=== PATIENT | female | born 1940 | race Caucasian/White ===

== ENCOUNTER 2016-12-18 14:58 | Inpatient (IN) | payer BC, MEDICARE ==
[2016-12-18 14:58] VITALS: BMI 25.8
[2016-12-18] MEDS ORDERED: Sodium Chloride 0.9% 1,000 ML IV SCH (15:30)
--- NOTE | 2016-12-18 15:34 | ED PDOC ---
Arrival/HPI - General Chief Complaint: Syncope Time Seen by Provider: 12/18/16 15:19 Historian: Patient - History of Present Illness Narrative History of Present Illness (Text): 12/18/16 15:22 76 y/o female, pmh including htn/hyperlipidemia/CAD with multiple stents/ITP on brillinta, penicillin allergy, c/o dizziness and fall with head injury x 8 hours. Pt. was in the shower early this morning around 7am, bend down to wash her thigh which she feels dizziness as about to pass out which she fall outside of the tube, landed on the floor which she is not sure if she has LOC or not. Apparently, the patient started to have lt. hand numbness and tingling with dizziness about 5 days ago which she feels as if she will pass out which she refused to come to the ER. Pt. is here at the ER with elevated BP with systolic over 200s with no headache or dizziness, no chest pain or shortness of breath, no palpitation, no other medical or psychological complaints. Past Medical History - Provider Review Nursing Documentation Reviewed: Yes - Infectious Disease Hx of Infectious Diseases: None - Tetanus Immunization Tetanus Immunization: Unknown - Reproductive Menopause: Yes - Past Medical History Past Medical History: No Previous - Cardiac Hx Hypertension: Yes Other/Comment: 8 cardiac stents. Breast CA 2008 - Neurological Hx Paralysis: No - HEENT Other/Comment: no thin liquids - Renal Hx Renal Disorder: No - Endocrine/Metabolic Hx Endocrine Disorders: No - Hematological/Oncological Hx Blood Disorders: No Hx Blood Transfusions: No Hx Blood Transfusion Reaction: No - Integumentary Hx Dermatological Disorder: No - Musculoskeletal/Rheumatological Hx Musculoskeletal Disorders: No - Gastrointestinal Hx Gastrointestinal Disorders: No - Genitourinary/Gynecological Hx Genitourinary Disorders: No - Psychiatric Hx Psychophysiologic Disorder: No Hx Emotional Abuse: No Hx Physical Abuse: No Hx Substance Use: No - Past Surgical History Past Surgical History: Non-Contributing - Surgical History Hx Cardiac Catheterization: Yes (8 stents) Hx Coronary Stent: Yes Hx Mastectomy: Yes (double) Other/Comment: cardiac stent - Anesthesia Hx Anesthesia: No Hx Anesthesia Reactions: Yes (NAUSEA/VOMITING (AFTER [facility])) Hx Malignant Hyperthermia: No - Suicidal Assessment Feels Threatened In Home Enviroment: No Family/Social History - Physician Review Nursing Documentation Reviewed: Yes Family/Social History: Unknown Family HX Smoking Status: Never Smoked Hx Alcohol Use: No Hx Substance Use: No Hx Substance Use Treatment: No Allergies/Home Meds Allergies/Adverse Reactions: Allergies Penicillins Allergy (Verified 10/05/15 12:17) RASH Home Medications: Home Meds Medication Instructions Recorded Confirmed Aspirin [Ecotrin] 81 mg PO DAILY 12/18/16 12/22/16 Letrozole 2.5 mg PO DAILY 12/18/16 12/22/16 Metoprolol Succinate 50 mg PO DAILY 12/18/16 12/18/16 Rosuvastatin Calcium [Crestor] 20 mg PO HS 12/18/16 12/22/16 Ticagrelor [Brilinta] 60 mg PO BID 12/18/16 12/22/16 Review of Systems - Review of Systems Constitutional: absent: Fatigue, Fevers Eyes: absent: Vision Changes ENT: absent: Hearing Changes Respiratory: absent: SOB, Cough Gastrointestinal: absent: Abdominal Pain, Nausea, Vomiting Musculoskeletal: Arthralgias Skin: Rash. absent: Pruritis Neurological: Dizziness, Other (numbness and tingling). absent: Headache, Speech Changes, Facial Droop Physical Exam Vital Signs Reviewed: Yes Vital Signs Temp Pulse Resp BP Pulse Ox 12/18/16 20:00 52 L 16 166/74 H 100 12/18/16 18:30 56 L 16 148/60 99 12/18/16 17:54 48 L 16 197/72 H 100 12/18/16 16:05 53 L 16 170/75 H 100 12/18/16 15:51 60 16 165/88 H 100 12/18/16 15:10 98.6 F 65 20 213/71 H 99 Temperature: Afebrile Blood Pressure: Hypertensive Pulse: Regular Respiratory Rate: Normal Appearance: Positive for: Well-Appearing, Non-Toxic, Comfortable Pain Distress: None Mental Status: Positive for: Alert and Oriented X 3 - Systems Exam Head: Present: Atraumatic, Normocephalic. No: Tenderness, Contusion, Swelling, Ecchymosis, Abrasion, Laceration, Other Pupils: Present: PERRL Extroacular Muscles: Present: EOMI Conjunctiva: Present: Normal Ears: Present: NORMAL TM, Normal Canal. No: Erythema Mouth: Present: Moist Mucous Membranes Neck: Present: Normal Range of Motion, Paraspinal Tenderness (Cervical: +ttp on the lt. paraspinal muscle region, no step off noted, FROM without limitation, sensation intact, motor 5/5, ), Trachea Midline. No: Meningeal Signs, MIDLINE TENDERNESS, Lymphadenopathy Respiratory/Chest: Present: Clear to Auscultation, Good Air Exchange. No: Respiratory Distress, Accessory Muscle Use, Wheezes, Decreased Breath Sounds, Rales, Retracting, Rhonchi Cardiovascular: Present: Regular Rate and Rhythm, Normal S1, S2. No: Murmurs Abdomen: Present: Normal Bowel Sounds. No: Tenderness, Distention, Peritoneal Signs, Rebound, Guarding Back: Present: Normal Inspection. No: CVA Tenderness, Midline Tenderness, Paraspinal Tenderness, Decubitus Ulcer Upper Extremity: Present: Normal Inspection, Other (RUE: +ttp and ecchymosis noted on the rt. flexore forearm region with skin intact, no laceration or abrasion, FROM without limitation, sensation intact, motor 5/5, +radial pulse, capillary refill< 2 seconds, neurovascular intact. ). No: Cyanosis, Edema Lower Extremity: Present: Normal Inspection, Neurovascularly Intact. No: Edema Neurological: Present: GCS=15, Speech Normal, Motor Func Grossly Intact, Gait Normal, Memory Normal Skin: Present: Warm, Dry, Normal Color. No: Rashes Psychiatric: Present: Alert, Oriented x 3, Normal Insight, Normal Concentration Medical Decision Making ED Course and Treatment: 12/18/16 15:42 -labs/cardiac trop/bnp/ua -CT head/cervical -Rt. forearm xray -ekg -school lunch monitor -IVF -NIHSS score is 0, pt. took brillinta dose for today already. -Pt. will be admitted for observation status due to the cause of the dizziness/ fall with near syncope today is unclear whether it is cardiovascular or neurological cause. 12/18/16 17:45 -Labs are non-significant except K+ 3.3, potassium chloride 20meq po ordered. Platete 85 which improved from 65 which about couple weeks ago(as per patient and the family) -UA show +wbc, no urinary symptoms, urine culture ordered. Pt. is asymptomatic and request to wait for the urine culture prior to start the antibiotic, will defer to the admitting physician to follow up. -Chest x-ray show no active disease -Rt. forearm xray: no fracture or dislocation -CT head show no acute findings -CT cervical: Multilevel degenerative disc disease, worse at C6-7 with severe right and moderate left neural foraminal stenosis and mild spinal canal stenosis which is likely the cause of numbness and tingling that the patient is experiencing, no emergent intervention or treatment indicated at this time. 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 12/18/16 18:05 -I spoke to DR. Sanchez about the case/labs/radiology results, request DR. Mei and Dr. Martinez for routine consult with bridge order to the observation tele. -I discussed with Dr. Henriquez, and he will put in the admission order. - Lab Interpretations Microbiology Results: Microbiology Results 12/18/16 Unknown Urine,Clean Catch Urine Culture - Final No Growth (<1,000 CFU/ML) Lab Results: 12/19/16 07:11 12/19/16 07:11 Lab Results 12/19/16 07:30: Blood Type A POSITIVE, Antibody Screen Negative, BBK History Checked Patient has bt 12/19/16 07:11: TSH 3rd Generation 3.5 12/19/16 07:11: Sodium 144, Potassium 3.7, Chloride 113 H, Carbon Dioxide 22, Anion Gap 13, BUN 15, Creatinine 1.1, Est GFR ( Amer) 58, Est GFR (Non- Af Amer) 48, Random Glucose 94, Calcium 8.6, Total Bilirubin 0.6, AST 26, ALT 28 , Alkaline Phosphatase 67, Total Protein 6.6, Albumin 3.7, Globulin 2.9, Albumin /Globulin Ratio 1.3 12/19/16 07:11: WBC 6.0 D, RBC 3.77, Hgb 10.8 L, Hct 33.2 L, MCV 88.1, MCH 28.6 , MCHC 32.5, RDW 14.3, Plt Count 58 L, MPV 11.6 H 12/18/16 21:58: Iron 60, TIBC 330, % Saturation 18 L 12/18/16 21:57: Hemoglobin A1c 6.3 12/18/16 21:57: Lactate Dehydrogenase 485, Total Creatine Kinase 75, Troponin I < 0.01, Triglycerides 198 H, Cholesterol 119 L, LDL Cholesterol Direct 45, HDL Cholesterol 44, Vitamin B12 407, Folate 7.3 12/18/16 15:50: WBC 8.2, RBC 4.17, Hgb 12.4, Hct 36.8, MCV 88.2, MCH 29.7, MCHC 33.7, RDW 14.3, Plt Count 85 L, MPV 12.5 H, Gran % 59.1, Lymph % (Auto) 29.0, [place] % (Auto) 6.7 H, Eos % (Auto) 5.0, Baso % (Auto) 0.2, Gran # 4.82, Lymph # 2.4, [place] # 0.6, Eos # 0.4, Baso # 0.02 12/18/16 15:23: Sodium 142, Potassium 3.3 L, Chloride 108 H, Carbon Dioxide 22, Anion Gap 15, BUN 20, Creatinine 1.4, Est GFR ( Amer) 44, Est GFR (Non- Af Amer) 36, Random Glucose 109, Calcium 9.2, Total Bilirubin 0.6, AST 31, ALT 28, Alkaline Phosphatase 68, Lactate Dehydrogenase 535, Total Creatine Kinase 82 , Troponin I < 0.01, NT-Pro-B Natriuret Pep 408, Total Protein 7.3, Albumin 4.0 , Globulin 3.2, Albumin/Globulin Ratio 1.3 12/18/16 15:23: Urine Color Yellow, Urine Appearance Sl cloudy, Urine pH 6.5, Ur Specific [place] 1.025, Urine Protein 100 H, Urine Glucose (UA) Negative, Urine Ketones Negative, Urine Blood Moderate H, Urine Nitrate Negative, Urine Bilirubin Negative, Urine Urobilinogen 0.2, Ur Leukocyte Esterase Negative, Urine RBC 15 - 20, Urine WBC 5 - 10, Ur Epithelial Cells 3 - 4, Urine Bacteria Few Interpretation: Abnormal lab values (K+ 3.3, platete 85, +UTI) - RAD Interpretation Radiology Orders: 12/18/16 15:23 HEAD W/O CONTRAST [CT] Stat CHEST PORTABLE [RAD] Stat 12/18/16 15:33 CERVICAL SPINE W/O CONTRAST [CT] Stat 12/18/16 15:36 FOREARM RIGHT [RAD] Stat 12/19/16 12:00 CAROTID & VERTEBRAL DUPLEX [US] Routine CT Head: IMPRESSION: No acute intracranial abnormality. CT Cervical: IMPRESSION: No acute fracture or traumatic anterior listhesis. Multilevel degenerative disc disease, worse at C6-7 with severe right and moderate left neural foraminal stenosis and mild spinal canal stenosis. Chest x-ray: IMPRESSION: No acute infiltrate or pleural effusion. Rt. Forearm: IMPRESSION: Unremarkable radiographs of the right forearm. [employer] Consultant: Radiologist - EKG Interpretation EKG Interpretation (Text): 12/18/16 18:00 Sinus Bradycardia @ 52 BPM, no ST elevation or Interpreted by ED Physician: Yes Type: 12 lead EKG Comparison: Com.w/previous EKG - Medication Orders Current Medication Orders: Discontinued Medications Acetaminophen (Tylenol 325mg Tab) 650 mg PO Q6H PRN PRN Reason: Headache Amlodipine Besylate (Norvasc) 10 mg PO DAILY [facility] Last Admin: 12/22/16 10:23 Dose: 10 mg Aspirin (Ecotrin) 81 mg PO DAILY [facility] Last Admin: 12/22/16 10:23 Dose: 81 mg Atorvastatin Calcium (Lipitor) 80 mg PO HS [facility] Last Admin: 12/21/16 21:31 Dose: 80 mg Bivalirudin (Angiomax) Confirm Administered Dose 250 mg IV .STK-MED ONE Stop: 12/21/16 12:39 Last Admin: 12/21/16 15:29 Dose: Clonidine HCl (Catapres) 0.2 mg PO STAT STA Stop: 12/18/16 15:35 Last Admin: 12/18/16 15:51 Dose: Not Given Non-Admin Reason: BP Parameters Not Met Diltiazem HCl (Cardizem) Confirm Administered Dose 25 mg .ROUTE .STK-MED ONE Stop: 12/21/16 09:03 Last Admin: 12/21/16 09:16 Dose: Fentanyl (Fentanyl) Confirm Administered Dose 100 mcg .ROUTE .[facility]-MED ONE Stop: 12/21/16 12:39 Last Admin: 12/21/16 14:41 Dose: 100 mcg Comments: Dr. Rajani Mei adm. Fentanyl 50 mcg IV @1441, an additional dose of Fentanyl 50 mcg IV @ 1454 Fentanyl (Fentanyl) Confirm Administered Dose 100 mcg .ROUTE .[facility]-MED ONE Stop: 12/21/16 14:50 Last Admin: 12/21/16 15:32 Dose: Furosemide (Lasix) 20 mg PO DAILY [facility] Last Admin: 12/22/16 10:23 Dose: 20 mg Home Med (Home Med) 0 unit PO BID [facility] Last Admin: 12/22/16 12:05 Dose: Hydrocortisone (Anusol-Hc) 25 mg RC BID [facility] Last Admin: 12/22/16 10:14 Dose: Not Given Non-Admin Reason: Patient Refused Hydrocortisone (Anusol-Hc) 0 gm VA BID PRN PRN Reason: Hemorrhoids Sodium Chloride (Sodium Chloride 0.9%) 1,000 mls @ 100 mls/hr IV .Q10H [facility] Last Admin: 12/18/16 15:55 Dose: 100 mls/hr Heparin Sodium (Porcine) (Heparin 1000 Units/500 Ml Ns) Confirm Administered Dose 1,500 mls @ ud IV .[facility] ONE Stop: 12/21/16 12:40 Iodixanol (Visipaque 320 Mg/Ml 200 Ml) Confirm Administered Dose 200 ml IV .[facility] ONE Stop: 12/21/16 12:40 Letrozole (Femara) 2.5 mg PO DAILY [facility] Last Admin: 12/22/16 10:27 Dose: 2.5 mg Lidocaine HCl (Lidocaine 2% 20ml Vial) Confirm Administered Dose 20 ml .ROUTE .[facility]-MED ONE Stop: 12/21/16 12:38 Losartan Potassium (Cozaar) 100 mg PO DAILY [facility] Last Admin: 12/22/16 10:22 Dose: 100 mg Metoprolol Succinate (Toprol Xl) 50 mg PO DAILY [facility] Last Admin: 12/19/16 09:52 Dose: Midazolam HCl (Versed Inj) Confirm Administered Dose 2 mg .ROUTE .K-MED ONE Stop: 12/21/16 12:39 Last Admin: 12/21/16 14:41 Dose: 2 mg Comments: Dr. Rajani Mei adm. Versed 2 mg @ 1441 Midazolam HCl (Versed Inj) Confirm Administered Dose 2 mg .ROUTE .STK-MED ONE Stop: 12/21/16 14:38 Last Admin: 12/21/16 15:32 Dose: Nitroglycerin (Nitrostat Sl Tab) 0.4 mg SL Q5M JONAS Stop: 12/21/16 09:26 Last Admin: 12/21/16 09:49 Dose: Nitroglycerin (Nitrostat Sl Tab) Confirm Administered Dose 0.4 mg SL .STK-MED ONE Stop: 12/21/16 09:08 Last Admin: 12/21/16 09:18 Dose: Pantoprazole Sodium (Protonix Inj) 40 mg IVP STAT STA Stop: 12/19/16 05:43 Last Admin: 12/19/16 06:10 Dose: 40 mg Pneumococcal Polyvalent Vaccine (Pneumovax 23 Vaccine) 0.5 ml IM .ONCE ONE Stop: 12/18/16 23:16 Polyethylene Glycol (Miralax) 17 gm PO DAILY [facility] Last Admin: 12/22/16 10:23 Dose: 17 gm Potassium Chloride (K-Dur 20 Meq Er Tab) 20 meq PO STAT STA Stop: 12/18/16 18:05 Last Admin: 12/18/16 18:40 Dose: 20 meq Tetrahydrozoline HCl/Zinc Sulfate (Visine 0.05% Opht Soln) 0 ml OU DAILY PRN PRN Reason: Allergy symptoms Last Admin: 12/20/16 08:29 Dose: 2 drop Ticagrelor (Brilinta) 90 mg PO DAILY [facility] Last Admin: 12/21/16 09:31 Dose: 90 mg Ticagrelor (Brilinta) 60 mg PO Q12 [facility] NIHSS Scale ([place]) Time Performed: 15:41 - How Severe is the Stoke Baseline Level of Consciousness: 0=Alert LOC to Questions: 0=Both comments correct LOC to commands: 0=Obeys both correctly Best Gaze: 0=Normal Visual: 0=No visual loss Facial: 0=Normal Motor Arm - Left: 0=No drift Motor Arm - Right: 0=No drift Motor Leg - Left: 0=No drift Motor Leg - Right: 0=No drift Limb Ataxia: 0=Absent Sensory: 0=Normal Best Language: 0=No aphasia Dysarthia: 0=Normal articulation Extinction & Inattention (Neglect): 0=Normal, no object Score: 0 Risk Level: No Stroke Risk - PA / PARLIAMENTARY COUNSEL / Resident Statement MD/DO has reviewed & agrees with the documentation as recorded. Disposition/Present on Arrival - Present on Arrival Any Indicators Present on Arrival: No History of DVT/PE: No History of Uncontrolled Diabetes: No Urinary Catheter: No History of Decub. Ulcer: No History Surgical Site Infection Following: None - Disposition Have Diagnosis and Disposition been Completed?: Yes Diagnosis: Near syncope, Arm paresthesia, left, Thrombocytopenia, Foraminal stenosis of cervical region, Hypokalemia Disposition: HOSPITALIZED Disposition Time: 15:44 Patient Plan: Observation, Telemetry Condition: STABLE
[2016-12-18 16:03] LABS: ADD MANUAL DIFF? NO
[2016-12-18 16:23] LABS: BASO # 0.02 K/mm3 (0.0-2.0); BASO % 0.2 % (0.0-3.0); EOS # 0.4 (0.0-0.7); GRAN # 4.82 (1.4-6.5); GRAN % 59.1 % (50.0-68.0); HEMATOCRIT 36.8 % (36.0-48.0); LYMPH # 2.4 (1.2-3.4); MEAN CELL VOLUME 88.2 fL (80.0-105.0); MEAN CORPUSCULAR HEMOGLOBIN 29.7 pg (25.0-35.0); MEAN CORPUSCULAR HGB CONC 33.7 g/dl (31.0-37.0); MEAN PLATELET VOLUME 12.5 fl (7.0-11.0); MONO # 0.6 (0.1-0.6); MONO % 6.7 % (1.0-6.0); PLATELET COUNT 85 10^3/uL (120.0-450.0); RED CELL DISTRIBUTION WIDTH 14.3 % (11.5-14.5); WHITE BLOOD COUNT 8.2 10^3/ul (4.5-11.0)
[2016-12-18 16:29] LABS: PH,URINE 6.5 (4.7-8.0); URINE BILIRUBIN NEGATIVE (NEGATIVE); URINE BLOOD MODERATE (NEGATIVE); URINE GLUCOSE (UA) NEGATIVE (NEGATIVE); URINE KETONE NEGATIVE (NEGATIVE); URINE LEUKOCYTE ESTERASE NEGATIVE Leu/uL (NEGATIVE); URINE PROTEIN 100 mg/dL (<30 mg/dL); URINE UROBILINOGEN 0.2 E.U./dL (<1 E.U./dL)
[2016-12-18 16:32] LABS: URINE APPEARANCE SL CLOUDY (CLEAR); URINE COLOR YELLOW (YELLOW)
[2016-12-18 16:38] LABS: URINE BACTERIA FEW (NEG); URINE RBC 15 - 20 /hpf (0-2)
[2016-12-18 17:00] LABS: ALB/GLOB RATIO 1.3 (1.1-1.8); ALKALINE PHOSPHATASE 68 U/L (38-133); ALT/SGPT 28 U/L (7-56); AST/SGOT 31 U/L (15-39); BILIRUBIN,TOTAL 0.6 mg/dL (0.2-1.3); BLOOD UREA NITROGEN 20 mg/dL (7-21); CALCIUM 9.2 mg/dL (8.4-10.5); CARBON DIOXIDE 22 mmol/L (21-33); CHLORIDE 108 mmol/L (98-107); GFR AFRICAN-AMERICAN 44; GLUCOSE,RANDOM 109 mg/dL (70-110); POTASSIUM 3.3 mmol/L (3.6-5.0); SODIUM 142 mmol/L (132-148); TOTAL PROTEIN 7.3 g/dL (5.8-8.3)
--- NOTE | 2016-12-18 17:07 | CT ---
PROCEDURE: CT HEAD WITHOUT CONTRAST. HISTORY: head injury with scalp hematoma, dizziness and fal COMPARISON: None available. TECHNIQUE: Axial computed tomography images were obtained through the head/brain without intravenous contrast. Radiation dose: Total exam DLP = 725.84 mGy-cm. This CT exam was performed using one or more of the following dose reduction techniques: Automated exposure control, adjustment of the mA and/or kV according to patient size, and/or use of iterative reconstruction technique. FINDINGS: HEMORRHAGE: No intracranial hemorrhage. BRAIN: Baltazar-white matter differentiation is preserved. There is no mass, mass effect or abnormal extra-axial fluid collection. VENTRICLES: There is mild age-related global parenchymal volume loss and proportionate enlargement of the ventricles and cortical sulci. CALVARIUM: There is no calvarial fracture or extracranial soft tissue swelling. PARANASAL SINUSES: Predominantly clear. MASTOID AIR CELLS: Predominantly clear. OTHER FINDINGS: None. IMPRESSION: No acute intracranial abnormality.
[2016-12-18 17:20] LABS: TROPONIN I < 0.01 ng/mL
--- NOTE | 2016-12-18 17:27 | CT ---
PROCEDURE: CT Cervical Spine without contrast HISTORY: Left-sided tingling and numbness COMPARISON: None available. TECHNIQUE: Axial computed tomography images were obtained of the cervical spine without the use of intravenous contrast. Coronal and sagittal reformatted images were created and reviewed. Radiation dose: Total exam DLP = 725.84 mGy-cm. This CT exam was performed using one or more of the following dose reduction techniques: Automated exposure control, adjustment of the mA and/or kV according to patient size, and/or use of iterative reconstruction technique. FINDINGS: VERTEBRAE: There is normal cervical lordosis. There is normal alignment of the cervical vertebral bodies. There is no acute fracture or traumatic anterior listhesis. The craniocervical junction is normal. The atlantoaxial joint is normal. DISCS/SPINAL CANAL/NEURAL FORAMINA: There is mild multilevel degenerative disc disease with anterior osteophytes, reduced disc heights and multilevel facet arthropathy, worse at C6-7 with severe right and moderate left neural foraminal stenosis and mild spinal canal stenosis. PARASPINAL SOFT TISSUES: The paraspinous soft tissues are normal. There is no prevertebral soft tissue swelling. OTHER FINDINGS: There is multifocal nuchal ligament ossification at C5 and C7. IMPRESSION: No acute fracture or traumatic anterior listhesis. Multilevel degenerative disc disease, worse at C6-7 with severe right and moderate left neural foraminal stenosis and mild spinal canal stenosis.
--- NOTE | 2016-12-18 17:38 | RAD ---
HISTORY: medical clearance COMPARISON: Prior portable chest 10/05/2015. FINDINGS: LUNGS: No active pulmonary disease. PLEURA: No significant pleural effusion identified, no pneumothorax apparent. CARDIOVASCULAR: Frontal magnification cardiac silhouette is suspected though the may be intrinsic cardiomegaly in the interval. No pulmonary vascular derangement is identified. OSSEOUS STRUCTURES: No significant abnormalities. VISUALIZED UPPER ABDOMEN: Normal. OTHER FINDINGS: Clinical is again seen the right axilla status post right mastectomy apparently. IMPRESSION: No acute infiltrate or pleural effusion. Technical magnification of the cardiac silhouette is favored over cardiomegaly. Clinically correlate.
--- NOTE | 2016-12-18 17:39 | RAD ---
PROCEDURE: Radiographs of the Right Forearm HISTORY: fall and pain COMPARISON: None available. TECHNIQUE: Frontal and lateral views obtained. FINDINGS: BONES: No fracture or destructive lesion. No fracture JOINT SPACES: No dislocation. OTHER FINDINGS: None. IMPRESSION: Unremarkable radiographs of the right forearm.
[2016-12-18] MEDS ORDERED: Potassium Chloride 20 mEq ER Tab PO STA (18:04)
[2016-12-18 22:42] LABS: CHOLESTEROL 119 mg/dL (130-200)
[2016-12-18 22:50] LABS: IRON 60 ug/dL (45-180)
[2016-12-18 22:55] LABS: TROPONIN I < 0.01 ng/mL
[2016-12-18] MEDS ORDERED: Pneumococcal 23-Valent Vaccine IM ONE (23:15)
[2016-12-19] MEDS ORDERED: Pantoprazole 40mg/100ml IVPB 40 MG/100 ML BAG IVPB SCH (05:45)
--- NOTE | 2016-12-19 06:47 | CP.PCM.PN ---
Subjective - Date & Time of Evaluation Date of Evaluation: 12/19/16 Time of Evaluation: 06:39 - Subjective Subjective: called by nurse pt has bloody bowel movement x1 pt has hx of hemorrhoids and states she passed bm and after that she has some fresh blood no abdominal pain .pt is admitted for dizziness and fall has hx of cad stents and hyperlipidemia. Objective - Vital Signs/Intake and Output Vital Signs (last 24 hours): Temp Pulse Resp BP Pulse Ox 98.3 F 47 L 20 165/71 H 96 12/19/16 06:00 12/19/16 06:00 12/19/16 06:00 12/19/16 06:00 12/19/16 06:00 Intake and Output: 12/18/16 12/19/16 18:59 06:59 Intake Total 1340 Output Total 600 Balance 740 - Medications Medications: Current Medications Aspirin (Ecotrin) 81 mg PO DAILY [facility] Atorvastatin Calcium (Lipitor) 80 mg PO HS [facility] Last Admin: 12/18/16 22:06 Dose: 80 mg Sodium Chloride (Sodium Chloride 0.9%) 1,000 mls @ 100 mls/hr IV .Q10H [facility] Last Admin: 12/18/16 15:55 Dose: 100 mls/hr Letrozole (Femara) 2.5 mg PO DAILY JONAS Metoprolol Succinate (Toprol Xl) 50 mg PO DAILY JONAS Ticagrelor (Brilinta) 90 mg PO DAILY JONAS - Constitutional Appears: No Acute Distress - Head Exam Head Exam: NORMOCEPHALIC - Eye Exam Eye Exam: Normal appearance - ENT Exam ENT Exam: Mucous Membranes Moist - Neck Exam Neck Exam: Full ROM - Respiratory Exam Respiratory Exam: Clear to Ausculation Bilateral, NORMAL BREATHING PATTERN - Cardiovascular Exam Cardiovascular Exam: Bradycardia, +S1, +S2 - Rectal Exam Rectal Exam: Bloody Stool, Hemorrhoids - Neurological Exam Neurological Exam: Alert, Awake, CN II-XII Intact, Normal Gait, Oriented x3 - Psychiatric Exam Psychiatric exam: Normal Affect - Skin Skin Exam: Dry, Normal Color, Warm Assessment and Plan - Assessment and Plan (Free Text) Assessment: lower gi bleed /hemorrhoids. hx of cad/dizziness fall . hx of ITP. Plan: CBC , type and cross . fluids . protonix. will inform pmd.
[2016-12-19 07:21] LABS: MEAN CELL VOLUME 88.1 fL (80.0-105.0); MEAN CORPUSCULAR HEMOGLOBIN 28.6 pg (25.0-35.0); MEAN CORPUSCULAR HGB CONC 32.5 g/dl (31.0-37.0); MEAN PLATELET VOLUME 11.6 fl (7.0-11.0); RED CELL DISTRIBUTION WIDTH 14.3 % (11.5-14.5)
[2016-12-19 07:27] LABS: ALB/GLOB RATIO 1.3 (1.1-1.8); BILIRUBIN,TOTAL 0.6 mg/dL (0.2-1.3); CALCIUM 8.6 mg/dL (8.4-10.5); POTASSIUM 3.7 mmol/L (3.6-5.0); TOTAL PROTEIN 6.6 g/dL (5.8-8.3)
[2016-12-19 07:45] LABS: HEMATOCRIT 33.2 % (36.0-48.0)
[2016-12-19] MEDS ORDERED: Metoprolol Succinate 50 mg XL Tab PO SCH (10:00)
[2016-12-19 11:50] LABS: FOLATE 7.3 ng/mL
--- NOTE | 2016-12-19 13:58 | CARD ---
APPROVED REPORT EKG Measurement Heart [id number] MD [id number] <Conclusion> Sinus bradycardia Otherwise normal ECG
--- NOTE | 2016-12-19 15:10 | CON ---
DATE: 12/19/2016 NEUROLOGY CONSULT CHIEF COMPLAINT: Near syncope. 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 She has PENICILLIN ALLERGY, came for lightheadedness especially when she was in a hot shower early in the morning. When she bended down to wash her thigh, she felt dizzy in terms of lightheaded and felt like she was going to pass out. She denied any spinning sensation of the room and started to have some paresthesias of her hands along with the dizziness. She found to have elevated systolic blood pressures over 200 when she came in. She denies any neurological symptoms at this time. Denies any headaches or any change in sense of vision at this time. CAT scan of the head showed no acute intracranial abnormality. CAT of the cervical spine just showed old chronic degenerative changes especially at C6 and C7 on the right with some mild foraminal stenosis, but not contributing to her symptoms. She was also found to be bradycardic in the 47s and 50s, but is currently back to stabilize. Currently, neuro exam is nonfocal. PAST MEDICAL HISTORY: History of hypertension; hyperlipidemia; coronary artery disease, status post stents and history of ITP. MEDICATIONS: Reviewed by nurse practitioner, see med reconciliation sheet. ALLERGIES: PENICILLIN. SOCIAL HISTORY: No illicit drug use, smoking or EtOH abuse. FAMILY HISTORY: Noncontributory. REVIEW OF SYSTEMS: A 14-point review of system is negative except as in the HPI. PHYSICAL EXAMINATION: VITAL SIGNS: Temperature 98, pulse rate 99, blood pressure 161/56, respiratory rate of 20, oxygen saturation 93% on room air. GENERAL: The patient is sitting up in bed, in no acute distress. HEENT: Head is atraumatic and normocephalic. PERRLA. Extraocular muscles intact. NECK: Supple. No JVD. No adenopathy noted. LUNGS: Clear to auscultation. No adventitious sounds. HEART: S1 and S2, normal rate and rhythm. No murmurs, rubs, or gallops. ABDOMEN: Soft, nontender, nondistended. Bowel sounds present. EXTREMITIES: No clubbing, no cyanosis. Peripheral pulses 2+ felt bilaterally. NEUROLOGIC: The patient is alert and oriented to person and place, month, and year. Speech is fluent without any errors. Cranial nerves II through XII intact. Motor exam: Moves all extremities equally. Toes are downgoing bilaterally. Sensory exam: Light touch, pinprick, proprioception and vibration are intact. DTRs are 2+ throughout. Gait is deferred for now. LABORATORY DATA: Sodium is 144, potassium is 3.7, chloride 103, carbon dioxide 22, BUN of 15, creatinine 1.1, random glucose of 94. ASSESSMENT AND PLAN: This is a 76-year-old woman with history of hypertension; hyperlipidemia; coronary artery disease, status post stent; history of ITP, on Brilinta as well as aspirin who came in for near syncopal event. I was consulted. CT head showed no acute intracranial abnormality. She had elevated systolic blood pressure when she came in, which is likely responsible for her underlying paresthesias of her extremities and near syncope was mostly likely vasovagal component with transient bradycardia. At this time, I recommend: 1. Continue Brilinta as well as aspirin for stroke prevention and Lipitor 80 mg for underlying dyslipidemia. 2. Carotid Doppler to assess for any coronary artery disease. 3. Followup with cardiology in regards to bradycardia. At this time, she is neurologically stable. Thank you for this consult. Cody Martinez MD
--- NOTE | 2016-12-19 22:35 | CON ---
DATE: 12/19/2016 HISTORY: The patient is a 76-year-old woman who presents with a syncopal episode while taking a shower. PAST MEDICAL HISTORY: The patient's past medical history is notable for history of multivessel PTCA and stent. Her last stress test recently showed no new ischemic changes with a normal ejection fraction. She suffers from hypertension, hypercholesterolemia. She has sinus bradycardia likely due to her beta-blockers, which she is on. SOCIAL HISTORY: Negative smoker. REVIEW OF SYSTEMS: Reviewed in detail. No cardiac symptomatology is noted. No chest pain. No shortness of breath. PHYSICAL EXAMINATION VITAL SIGNS: On physical exam, blood pressure varies from 140 to 160 systolic, heart rate is in the 40s to 50s. NECK: Negative JVD. LUNGS: Without rales. CARDIOPULMONARY: Heart reveals S1 and S2 with a 2/6 systolic ejection murmur. EXTREMITIES: Without edema. LABORATORY DATA: Reveals an EKG that shows no acute changes, troponins are negative x2. BUN and creatinine are unremarkable. Hemoglobin is 10.8. IMPRESSION: 1. Status post syncopal episode. 2. Sinus bradycardia secondary to beta blockers. 3. Stable angina. 4. No evidence for acute coronary syndrome. 5. History of triple-vessel PTCA and stent. 6. Anemia. 7. Hypercholesterolemia. 8. Hypertension. PLAN: Given these findings, we will stop her beta blockers given her persistent bradycardia. We will add an ARB for better blood pressure control. Diovan has been ordered. If the patient is stable in the morning, the patient can be discharged. Roshan Mei MD
--- NOTE | 2016-12-19 23:04 | CP.PCM.HP ---
History of Present Illness - History of Present Illness History of Present Illness: 12/19/16 Narrative History of Present Illness (Text): 76 y/o female, pmh including htn/hyperlipidemia/CAD with multiple stents/ITP on brillinta, penicillin allergy, c/o dizziness and fall with head injury x 8 hours. Pt. was in the shower early this morning around 7am, bend down to wash her thigh which she feels dizziness as about to pass out which she fall outside of the tube, landed on the floor which she is not sure if she has LOC or not. Apparently, the patient started to have lt. hand numbness and tingling with dizziness about 5 days ago which she feels as if she will pass out which she refused to come to the ER. Pt. is here at the ER with elevated BP with systolic over 200s with no headache or dizziness, no chest pain or shortness of breath, no palpitation, no other medical or psychological complaints. Present on Admission - Present on Admission Any Indicators Present on Admission: No Review of Systems - Constitutional Constitutional: As Per HPI - EENT Eyes: As Per HPI Ears: As Per HPI Nose/Mouth/Throat: As Per HPI - Breasts Breasts: As Per HPI - Respiratory Respiratory: As Per HPI - Gastrointestinal Gastrointestinal: As Per HPI - Genitourinary Genitourinary: As Per HPI, Freq UTI - Musculoskeletal Musculoskeletal: As Per HPI - Integumentary Integumentary: As Per HPI - Neurological Neurological: As Per HPI - Psychiatric Psychiatric: As Per HPI - Endocrine Endocrine: As Per HPI - Hematologic/Lymphatic Hematologic: As Per HPI Past Patient History - Infectious Disease Hx of Infectious Diseases: None - Tetanus Immunizations Tetanus Immunization: Unknown - Past Social History Smoking Status: Never Smoked - CARDIAC Hx Hypertension: Yes Other/Comment: 8 cardiac stents. Breast CA 2008 - NEUROLOGICAL Hx Paralysis: No - HEENT Other/Comment: no thin liquids - RENAL Hx Chronic Kidney Disease: No - ENDOCRINE/METABOLIC Hx Endocrine Disorders: No - HEMATOLOGICAL/ONCOLOGICAL Hx Blood Disorders: No Hx Blood Transfusions: No Hx Blood Transfusion Reaction: No - INTEGUMENTARY Hx Dermatological Problems: No - MUSCULOSKELETAL/RHEUMATOLOGICAL Hx Musculoskeletal Disorders: No - GASTROINTESTINAL Hx Gastrointestinal Disorders: No - GENITOURINARY/GYNECOLOGICAL Hx Genitourinary Disorders: No - PSYCHIATRIC Hx Psychophysiologic Disorder: No Hx Emotional Abuse: No Hx Physical Abuse: No Hx Substance Use: No - SURGICAL HISTORY Hx Cardiac Catheterization: Yes (8 stents) Hx Coronary Stent: Yes Hx Mastectomy: Yes (double) Other/Comment: cardiac stent - ANESTHESIA Hx Anesthesia: No Hx Anesthesia Reactions: Yes (NAUSEA/VOMITING (AFTER PTCA/[facility])) Hx Malignant Hyperthermia: No Meds Allergies/Adverse Reactions: Allergies Allergy/AdvReac Type Severity Reaction Status Date / Time Penicillins Allergy RASH Verified 10/05/15 12:17 Physical Exam - Constitutional Appears: Well - Head Exam Head Exam: ATRAUMATIC, NORMAL INSPECTION, NORMOCEPHALIC - Eye Exam Eye Exam: EOMI, Normal appearance, PERRL Pupil Exam: NORMAL ACCOMODATION, PERRL - ENT Exam ENT Exam: Mucous Membranes Moist, Normal Exam - Neck Exam Neck exam: Positive for: Normal Inspection - Respiratory Exam Respiratory Exam: Clear to Auscultation Bilateral, NORMAL BREATHING PATTERN - Cardiovascular Exam Cardiovascular Exam: REGULAR RHYTHM - GI/Abdominal Exam GI & Abdominal Exam: Normal Bowel Sounds, Soft. absent: Tenderness - Rectal Exam Rectal Exam: NORMAL INSPECTION - Exam Exam: Circumcision, NORMAL INSPECTION External exam: NORMAL EXTERNAL EXAM Speculum exam: NORMAL SPECULUM EXAM Bimanual exam: NORMAL BIMANUAL EXAM - Extremities Exam Extremities exam: Positive for: normal inspection - Back Exam Back exam: NORMAL INSPECTION - Neurological Exam Neurological exam: Alert, CN II-XII Intact, Normal Gait, Oriented x3, Reflexes Normal - Psychiatric Exam Psychiatric exam: Normal Affect, Normal Mood - Skin Skin Exam: Dry, Intact, Normal Color, Warm Results - Vital Signs Recent Vital Signs: Last Vital Signs Temp 98.1 F 12/19/16 12:00 Pulse 55 L 12/19/16 18:00 Resp 20 12/19/16 12:00 BP 140/58 L 12/19/16 18:57 Pulse Ox 96 12/19/16 06:00 - Labs Result Diagrams: 12/19/16 07:11 12/19/16 07:11 Labs: Laboratory Results - last 24 hr 12/18/16 12/18/16 12/19/16 21:57 21:58 07:11 WBC 6.0 D RBC 3.77 Hgb 10.8 L Hct 33.2 L MCV 88.1 MCH 28.6 MCHC 32.5 RDW 14.3 Plt Count 58 L MPV 11.6 H Sodium Potassium Chloride Carbon Dioxide Anion Gap BUN Creatinine Est GFR ( Amer) Est GFR (Non-Af Amer) Random Glucose Calcium Iron 60 TIBC 330 % Saturation 18 L Total Bilirubin AST ALT Alkaline Phosphatase Lactate Dehydrogenase 485 Total Creatine Kinase 75 Troponin I < 0.01 Total Protein Albumin Globulin Albumin/Globulin Ratio Triglycerides 198 H Cholesterol 119 L LDL Cholesterol Direct 45 HDL Cholesterol 44 Vitamin B12 407 Folate 7.3 TSH 3rd Generation Blood Type Antibody Screen BBK History Checked 12/19/16 12/19/16 12/19/16 07:11 07:11 07:30 WBC RBC Hgb Hct MCV MCH MCHC RDW Plt Count MPV Sodium 144 Potassium 3.7 Chloride 113 H Carbon Dioxide 22 Anion Gap 13 BUN 15 Creatinine 1.1 Est GFR ( Amer) 58 Est GFR (Non-Af Amer) 48 Random Glucose 94 Calcium 8.6 Iron TIBC % Saturation Total Bilirubin 0.6 AST 26 ALT 28 Alkaline Phosphatase 67 Lactate Dehydrogenase Total Creatine Kinase Troponin I Total Protein 6.6 Albumin 3.7 Globulin 2.9 Albumin/Globulin Ratio 1.3 Triglycerides Cholesterol LDL Cholesterol Direct HDL Cholesterol Vitamin B12 Folate TSH 3rd Generation 3.5 Blood Type A POSITIVE Antibody Screen Negative BBK History Checked Patient has bt Assessment & Plan (1) Arm paresthesia, left Status: Acute (2) Foraminal stenosis of cervical region Status: Acute (3) Hypokalemia Status: Acute (4) Near syncope Status: Acute (5) Thrombocytopenia Status: Acute (6) CAD (coronary artery disease) Status: Acute (7) Chest pain Status: Acute (8) Stented coronary artery Status: Acute - Assessment and Plan (Free Text) Assessment: 76 y/o female, pmh including htn/hyperlipidemia/CAD with multiple stents/ITP on brillinta, penicillin allergy, c/o dizziness and fall with head injury x 8 hours. Pt. was in the shower early this morning around 7am, bend down to wash her thigh which she feels dizziness as about to pass out which she fall outside of the tube, landed on the floor which she is not sure if she has LOC or not. Apparently, the patient started to have lt. hand numbness and tingling with dizziness about 5 days ago which she feels as if she will pass out which she refused to come to the ER. Pt. is here at the ER with elevated BP with systolic over 200s with no headache or dizziness, no chest pain or shortness of breath, no palpitation, no other medical or psychological complaints. we admitted pt in the telemetry , cardiology and neuro consult called . scanes done Diagnosis: Near syncope, Arm paresthesia, left, Thrombocytopenia, Foraminal stenosis of cervical region, Hypokalemia , today pt had gi bleeding , as per pt she had h/o ham. will call gi consult
[2016-12-20 07:18] LABS: HEMATOCRIT 34.8 % (36.0-48.0); MEAN CELL VOLUME 87.9 fL (80.0-105.0); MEAN CORPUSCULAR HEMOGLOBIN 29.8 pg (25.0-35.0); MEAN CORPUSCULAR HGB CONC 33.9 g/dl (31.0-37.0); MEAN PLATELET VOLUME 11.9 fl (7.0-11.0); RED CELL DISTRIBUTION WIDTH 14.2 % (11.5-14.5); WHITE BLOOD COUNT 5.3 10^3/ul (4.5-11.0)
[2016-12-20 07:36] LABS: CALCIUM 8.8 mg/dL (8.4-10.5); POTASSIUM 3.8 mmol/L (3.6-5.0)
[2016-12-20] MEDS ORDERED: Tetrahydrozoline Opht 0.05% Sol (15 ml) OU PRN (07:50)
--- NOTE | 2016-12-20 10:15 | CP.PCM.CON ---
<Padmaja Jara - Last Filed: 12/20/16 10:09> History of Present Illness - History of Present Illness History of Present Illness: Gastroenterology Fellow/PGY5 Consult Note 76 year old female wit history of Breast cancer 2-14 s/p bialteral mastectomy on Femara chemotherapy, Hypertension, Hyperlipidemia, and CAD s/p 8 cardiac stents on Brilinta presenting with fall and hit to head. Patient recalls onset of dizziness after bending over in the shower leading to hitting back of her head on ground with ER presentation. Active treatment of hypertensive urgency and syncopal episode workup. Patient notes episode of bright red blood per rectum with wiping and small amount of blood in toilet water after a hard bowel movement and associated straining last night. She has since had a normal, soft stool this morning without rectal bleeding. She notes similar episodes of BRBPR with hard stool every 3-5 months that she associates with history of hemorrhoids. No prior suppository or cream use for relief. Prior colonoscopy over ten years ago endorsed to be normal. Family- denies stomach cancer,colon cancer Social- denies tobacco, alcohol, illicit drug use Surgery-8 cardiac stents Review of Systems - Review of Systems Review of Systems: 12-point review of systems negative except for as above Past Patient History - Infectious Disease Hx of Infectious Diseases: None - Tetanus Immunizations Tetanus Immunization: Unknown - Past Social History Smoking Status: Never Smoked - CARDIAC Hx Hypertension: Yes Other/Comment: 8 cardiac stents. Breast CA 2008 - NEUROLOGICAL Hx Paralysis: No - HEENT Other/Comment: no thin liquids - RENAL Hx Chronic Kidney Disease: No - ENDOCRINE/METABOLIC Hx Endocrine Disorders: No - HEMATOLOGICAL/ONCOLOGICAL Hx Blood Disorders: No Hx Blood Transfusions: No Hx Blood Transfusion Reaction: No - INTEGUMENTARY Hx Dermatological Problems: No - MUSCULOSKELETAL/RHEUMATOLOGICAL Hx Musculoskeletal Disorders: No - GASTROINTESTINAL Hx Gastrointestinal Disorders: No - GENITOURINARY/GYNECOLOGICAL Hx Genitourinary Disorders: No - PSYCHIATRIC Hx Psychophysiologic Disorder: No Hx Emotional Abuse: No Hx Physical Abuse: No Hx Substance Use: No - SURGICAL HISTORY Hx Cardiac Catheterization: Yes (8 stents) Hx Coronary Stent: Yes Hx Mastectomy: Yes (double) Other/Comment: cardiac stent - ANESTHESIA Hx Anesthesia: No Hx Anesthesia Reactions: Yes (NAUSEA/VOMITING (AFTER PTCA/[facility])) Hx Malignant Hyperthermia: No Meds Allergies/Adverse Reactions: Allergies Allergy/AdvReac Type Severity Reaction Status Date / Time Penicillins Allergy RASH Verified 10/05/15 12:17 - Medications Medications: Current Medications Amlodipine Besylate (Norvasc) 10 mg PO DAILY [facility] Last Admin: 12/20/16 09:37 Dose: 10 mg Aspirin (Ecotrin) 81 mg PO DAILY [facility] Last Admin: 12/20/16 09:38 Dose: 81 mg Atorvastatin Calcium (Lipitor) 80 mg PO HS [facility] Last Admin: 12/19/16 21:26 Dose: 80 mg Furosemide (Lasix) 20 mg PO DAILY [facility] Last Admin: 12/20/16 09:37 Dose: 20 mg Letrozole (Femara) 2.5 mg PO DAILY [facility] Last Admin: 12/20/16 09:38 Dose: 2.5 mg Losartan Potassium (Cozaar) 100 mg PO DAILY [facility] Last Admin: 12/20/16 09:39 Dose: 100 mg Tetrahydrozoline HCl/Zinc Sulfate (Visine 0.05% Opht Soln) 0 ml OU DAILY PRN PRN Reason: Allergy symptoms Last Admin: 12/20/16 08:29 Dose: 2 drop Ticagrelor (Brilinta) 90 mg PO DAILY [facility] Last Admin: 12/20/16 09:37 Dose: 90 mg Physical Exam - Constitutional Appears: Non-toxic, No Acute Distress - Head Exam Head Exam: ATRAUMATIC, NORMOCEPHALIC - Eye Exam Eye Exam: EOMI, PERRL Pupil Exam: PERRL. absent: Miosis, Mydriatic - ENT Exam ENT Exam: Mucous Membranes Moist, Normal Oropharynx - Neck Exam Neck exam: Positive for: Full Rom, Normal Inspection - Respiratory Exam Respiratory Exam: Clear to Auscultation Bilateral. absent: Rales, Rhonchi, Wheezes - Cardiovascular Exam Cardiovascular Exam: RRR, +S1, +S2. absent: Gallop, Rubs - GI/Abdominal Exam GI & Abdominal Exam: Normal Bowel Sounds, Soft. absent: Distended, Firm, Guarding, Organomegaly, Rebound, Rigid, Tenderness - Rectal Exam Rectal Exam: Hemorrhoids. absent: Black Stool, Bloody Stool, Fecal Impaction Additional comments: Large, grade III hemorrhoids, light brown mucus in rectal vault - Extremities Exam Extremities exam: Positive for: normal inspection. Negative for: pedal edema - Neurological Exam Neurological exam: Alert - Psychiatric Exam Psychiatric exam: Normal Affect, Normal Mood - Skin Skin Exam: Dry, Intact, Normal Color, Warm Results - Vital Signs Recent Vital Signs: Last Vital Signs Temp 97.7 F 12/20/16 06:00 Pulse 66 12/20/16 06:00 Resp 20 12/20/16 06:00 BP 163/77 H 12/20/16 09:37 Pulse Ox 97 12/20/16 06:00 - Labs Result Diagrams: 12/20/16 07:10 12/20/16 07:10 Labs: Laboratory Results - last 24 hr 12/20/16 12/20/16 07:10 07:10 WBC 5.3 RBC 3.96 Hgb 11.8 L Hct 34.8 L MCV 87.9 MCH 29.8 MCHC 33.9 RDW 14.2 Plt Count 51 L MPV 11.9 H Sodium 145 Potassium 3.8 Chloride 112 H Carbon Dioxide 21 Anion Gap 16 BUN 18 Creatinine 1.1 Est GFR ( Amer) 58 Est GFR (Non-Af Amer) 48 Random Glucose 117 H Calcium 8.8 Assessment & Plan - Assessment and Plan (Free Text) Assessment: 76 year old female wit history of Breast cancer 2-14 s/p bilateral mastectomy on Femara chemotherapy, Hypertension, Hyperlipidemia, and CAD s/p 8 cardiac stents on Brilinta presenting with fall and hit to head. Active treatment of hypertensive urgency and syncopal episode workup. GI consultation for bright red blood per rectum with similar episodes of BRBPR associated with constipation and history of hemorrhoids. Prior colonoscopy over ten years ago endorsed to be normal. Plan: >start Anusol BID and hydrocortisone cream daily >start Miralax daily >counselled on increased water and fiber intake >primary team managing syncope workup >will benefit from elective outpatient colonoscopy for further evaluation >will follow clinical course <Rufino Pat Y - Last Filed: 12/20/16 10:29> Meds - Medications Medications: Current Medications Amlodipine Besylate (Norvasc) 10 mg PO DAILY [facility] Last Admin: 12/20/16 09:37 Dose: 10 mg Aspirin (Ecotrin) 81 mg PO DAILY [facility] Last Admin: 12/20/16 09:38 Dose: 81 mg Atorvastatin Calcium (Lipitor) 80 mg PO HS [facility] Last Admin: 12/19/16 21:26 Dose: 80 mg Furosemide (Lasix) 20 mg PO DAILY [facility] Last Admin: 12/20/16 09:37 Dose: 20 mg Letrozole (Femara) 2.5 mg PO DAILY [facility] Last Admin: 12/20/16 09:38 Dose: 2.5 mg Losartan Potassium (Cozaar) 100 mg PO DAILY [facility] Last Admin: 12/20/16 09:39 Dose: 100 mg Tetrahydrozoline HCl/Zinc Sulfate (Visine 0.05% Opht Soln) 0 ml OU DAILY PRN PRN Reason: Allergy symptoms Last Admin: 12/20/16 08:29 Dose: 2 drop Ticagrelor (Brilinta) 90 mg PO DAILY [facility] Last Admin: 12/20/16 09:37 Dose: 90 mg Results - Vital Signs Recent Vital Signs: Last Vital Signs Temp 97.7 F 12/20/16 06:00 Pulse 66 12/20/16 06:00 Resp 20 12/20/16 06:00 BP 163/77 H 12/20/16 09:37 Pulse Ox 97 12/20/16 06:00 - Labs Result Diagrams: 12/20/16 07:10 12/20/16 07:10 Labs: Laboratory Results - last 24 hr 12/20/16 12/20/16 07:10 07:10 WBC 5.3 RBC 3.96 Hgb 11.8 L Hct 34.8 L MCV 87.9 MCH 29.8 MCHC 33.9 RDW 14.2 Plt Count 51 L MPV 11.9 H Sodium 145 Potassium 3.8 Chloride 112 H Carbon Dioxide 21 Anion Gap 16 BUN 18 Creatinine 1.1 Est GFR ( Amer) 58 Est GFR (Non-Af Amer) 48 Random Glucose 117 H Calcium 8.8 Attending/Attestation - Attestation I have personally seen and examined this patient.: Yes I have fully participated in the care of the patient.: Yes I have reviewed all pertinent clinical information: Yes Notes (Text): 12/20/16 10:22 I have seen and examined patient with GI fellow. Agree with above documentation with the following additions. In brief, this is a 76 year old female with history of breast cancer s/p b/l mastectomy on chemotherapy, CAD s/ p PCI on brilinta, HTN, hyperlipidemia who presents to hospital for evaluation of syncopal episode. She describes a sensation of dizziness and syncope while in shower yesterday. GI called for evaluation of rectal bleeding. She endorses an episode of blood streak in stool during bowel movement yesterday but admits to hard stool with straining. She notes similar episodes in past which she attributes to known hemorrhoidal disease. She denies abdominal pain, nausea, vomiting, diarrhea, fever/chills, weight loss, or change in bowel habits. She had a normal formed bowel movement this morning without presence of blood. She had a colonoscopy over 10 years ago which was normal as per patient. History of breast cancer s/p mastectomy on chemotherapy CAD s/p PCI on brilinta HTN Hyperlipidemia Syncope Rectal bleeding - rectal exam performed today shows soft brown stool, no blood in rectal vault, grade III internal hemorrhoids - Diet as tolerated - H/H stable, continue to monitor - Syncope workup in progress, follow up neurology recommendations - Begin therapy for hemorrhoidal disease with anusol suppository - Maintain bowel regimen to prevent constipation - Patient would benefit from colonoscopy for further workup of intermittent rectal bleeding. This can be performed electively as outpatient following neurologic workup. Office contact information provided to patient. Will continue to monitor patient clinical course.
[2016-12-20 10:27] LABS: INR 0.98 (0.93-1.08)
[2016-12-20] MEDS ORDERED: Hydrocortisone 2.5% Rectal Cream(30 gm) PR PRN (10:47)
[2016-12-20] MEDS: POLYETHYLENE GLYCOL 3350 17 GM/Dose PACKET PO SCH (11:35)
--- NOTE | 2016-12-20 11:39 | PN ---
CARDIOLOGY FOLLOWUP NOTE DATE OF FOLLOWUP: 12/20/2016 SUBJECTIVE: The patient still complains of mild dizziness while getting up. PHYSICAL EXAMINATION VITAL SIGNS: There are no orthostatic changes on vital signs: Heart rate is in the 60s. NECK: Negative JVD. LUNGS: Without rales. HEART: Reveals S1 and S2. EXTREMITIES: Without edema. LABORATORY DATA: Hemoglobin is 11.8. Chemistries; glucose is 117. IMPRESSION: 1. Recurrent dizziness. 2. History of syncope. 3. No cardiac cause of syncope could be identified. 4. Unstable angina. 5. History of triple-vessel percutaneous transluminal coronary angioplasty. PLAN: Given these findings, we will stop her beta-blockers and given her bradycardia. Instead we will treat her hypertension with Cozaar. Roshan Mei MD
--- NOTE | 2016-12-20 11:48 | CP.PCM.PN ---
<Mega Kirby - Last Filed: 12/20/16 11:41> Subjective - Date & Time of Evaluation Date of Evaluation: 12/20/16 Time of Evaluation: 11:41 - Subjective Subjective: Neurology Progress Note Pt seen and examined at bedside. Pt doing well this morning with no complaints. Pt bradycardic with HR in the 50's overnight. Denies any weakness, CP, SOB, dizziness, N/V/D. Objective - Vital Signs/Intake and Output Vital Signs (last 24 hours): Temp Pulse Resp BP Pulse Ox 97.7 F 63 20 163/77 H 97 12/20/16 06:00 12/20/16 10:00 12/20/16 06:00 12/20/16 09:37 12/20/16 08:00 Intake and Output: 12/20/16 12/20/16 06:59 18:59 Intake Total 417 Output Total 2 Balance 415 - Medications Medications: Current Medications Amlodipine Besylate (Norvasc) 10 mg PO DAILY [facility] Last Admin: 12/20/16 09:37 Dose: 10 mg Aspirin (Ecotrin) 81 mg PO DAILY [facility] Last Admin: 12/20/16 09:38 Dose: 81 mg Atorvastatin Calcium (Lipitor) 80 mg PO HS [facility] Last Admin: 12/19/16 21:26 Dose: 80 mg Furosemide (Lasix) 20 mg PO DAILY [facility] Last Admin: 12/20/16 09:37 Dose: 20 mg Hydrocortisone (Anusol-Hc) 25 mg RC BID [facility] Last Admin: 12/20/16 11:35 Dose: Not Given Hydrocortisone (Anusol-Hc) 0 gm PA BID PRN PRN Reason: Hemorrhoids Letrozole (Femara) 2.5 mg PO DAILY [facility] Last Admin: 12/20/16 09:38 Dose: 2.5 mg Losartan Potassium (Cozaar) 100 mg PO DAILY [facility] Last Admin: 12/20/16 09:39 Dose: 100 mg Polyethylene Glycol (Miralax) 17 gm PO DAILY [facility] Last Admin: 12/20/16 11:35 Dose: Not Given Tetrahydrozoline HCl/Zinc Sulfate (Visine 0.05% Opht Soln) 0 ml OU DAILY PRN PRN Reason: Allergy symptoms Last Admin: 12/20/16 08:29 Dose: 2 drop Ticagrelor (Brilinta) 90 mg PO DAILY [facility] Last Admin: 12/20/16 09:37 Dose: 90 mg - Labs Labs: 12/20/16 07:10 12/20/16 07:10 PT 10.6 Seconds (9.9-11.8) 12/20/16 09:57 INR 0.98 (0.93-1.08) 12/20/16 09:57 - Constitutional Appears: Well, No Acute Distress - Head Exam Head Exam: ATRAUMATIC, NORMAL INSPECTION, NORMOCEPHALIC - ENT Exam ENT Exam: Mucous Membranes Moist - Respiratory Exam Respiratory Exam: Clear to Ausculation Bilateral, NORMAL BREATHING PATTERN. absent: Rales, Rhonchi, Wheezes - Cardiovascular Exam Cardiovascular Exam: RRR, +S1, +S2 - GI/Abdominal Exam GI & Abdominal Exam: Soft, Normal Bowel Sounds. absent: Tenderness - Neurological Exam Neurological Exam: Alert, Awake, Oriented x3 - Psychiatric Exam Psychiatric exam: Normal Affect, Normal Mood - Skin Skin Exam: Intact, Normal Color, Warm Assessment and Plan - Assessment and Plan (Free Text) Plan: 76 y/o F with PMH of HTN, CAD s/p stent, HLD, and ITP presents for pre-syncopal episode likely secondary to vasovagal eitology and transient bradycardia. Pt bradycardic and currently awaiting cardiology recommendations. Pt received carotid dopplers yesterday, awaiting official read at this time. Will sign off at this time. Please reconsult as needed. - Continue Brillinta, ASA, and Lipitor - Awaiting Carotid doppler read - Follow up cardiology recommendations for bradycardia Mirta, PGY-2 <Cody Martinez - Last Filed: 12/20/16 12:21> Objective - Vital Signs/Intake and Output Vital Signs (last 24 hours): Temp Pulse Resp BP Pulse Ox 98.4 F 104 H 20 178/69 H 97 12/20/16 12:00 12/20/16 12:00 12/20/16 12:00 12/20/16 12:00 12/20/16 08:00 Intake and Output: 12/20/16 12/20/16 06:59 18:59 Intake Total 417 Output Total 2 Balance 415 - Medications Medications: Current Medications Amlodipine Besylate (Norvasc) 10 mg PO DAILY [facility] Last Admin: 12/20/16 09:37 Dose: 10 mg Aspirin (Ecotrin) 81 mg PO DAILY [facility] Last Admin: 12/20/16 09:38 Dose: 81 mg Atorvastatin Calcium (Lipitor) 80 mg PO HS [facility] Last Admin: 12/19/16 21:26 Dose: 80 mg Furosemide (Lasix) 20 mg PO DAILY [facility] Last Admin: 12/20/16 09:37 Dose: 20 mg Hydrocortisone (Anusol-Hc) 25 mg RC BID [facility] Last Admin: 12/20/16 11:35 Dose: Not Given Hydrocortisone (Anusol-Hc) 0 gm PA BID PRN PRN Reason: Hemorrhoids Letrozole (Femara) 2.5 mg PO DAILY [facility] Last Admin: 12/20/16 09:38 Dose: 2.5 mg Losartan Potassium (Cozaar) 100 mg PO DAILY [facility] Last Admin: 12/20/16 09:39 Dose: 100 mg Polyethylene Glycol (Miralax) 17 gm PO DAILY [facility] Last Admin: 12/20/16 11:35 Dose: Not Given Tetrahydrozoline HCl/Zinc Sulfate (Visine 0.05% Opht Soln) 0 ml OU DAILY PRN PRN Reason: Allergy symptoms Last Admin: 12/20/16 08:29 Dose: 2 drop Ticagrelor (Brilinta) 90 mg PO DAILY [facility] Last Admin: 12/20/16 09:37 Dose: 90 mg - Labs Labs: 12/20/16 07:10 12/20/16 07:10 PT 10.6 Seconds (9.9-11.8) 12/20/16 09:57 INR 0.98 (0.93-1.08) 12/20/16 09:57 Attending/Attestation - Attestation I have personally seen and examined this patient.: Yes I have fully participated in the care of the patient.: Yes I have reviewed all pertinent clinical information, including history, physical exam and plan: Yes Notes (Text): 12/20/16 12:20 PT EVALUATION. SHE IS NEUROLOGICALLY STABLE.
--- NOTE | 2016-12-20 19:19 | US ---
PROCEDURE: Bilateral carotid artery duplex ultrasound HISTORY: Carotid stenosis PHYSICIAN(S): Roshan Hernandez MD. TECHNIQUE: Duplex sonography and color-flow Doppler were used to evaluate the carotid bifurcations and limited segments of the vertebral arteries bilaterally. The exam is limited by tortuous vessels. FINDINGS: There is mild to moderate smooth heterogeneous plaque noted at the carotid bifurcations bilaterally. The peak systolic velocity in the proximal right internal carotid artery is 121 cm/sec. This corresponds to a 40-59 percent proximal right ICA stenosis. Mildly elevated systolic velocities are noted in the proximal right external carotid artery. There is antegrade flow in the right vertebral artery. The peak systolic velocity in the proximal left internal carotid artery is 133 cm/sec. This corresponds to a 40-59 percent proximal left ICA stenosis. Mildly elevated systolic velocities are noted in the proximal left external carotid artery. There is antegrade flow in the left vertebral artery. IMPRESSION: 1. Bilateral 40-59 percent proximal ICA stenoses. 2. Antegrade flow in both vertebral arteries.
--- NOTE | 2016-12-20 22:17 | CP.PCM.PN ---
Subjective - Date & Time of Evaluation Date of Evaluation: 12/20/16 Time of Evaluation: 05:10 - Subjective Subjective: 76 year old female wit history of Breast cancer 2-14 s/p bialteral mastectomy on Femara chemotherapy, Hypertension, Hyperlipidemia, and CAD s/p 8 cardiac stents on Brilinta presenting with fall and hit to head. Patient recalls onset of dizziness after bending over in the shower leading to hitting back of her head on ground with ER presentation. Active treatment of hypertensive urgency and syncopal episode workup. Patient notes episode of bright red blood per rectum with wiping and small amount of blood in toilet water after a hard bowel movement and associated straining last night. She has since had a normal, soft stool this morning without rectal bleeding. She notes similar episodes of BRBPR with hard stool every 3-5 months that she associates with history of hemorrhoids. No prior suppository or cream use for relief. Prior colonoscopy over ten years ago endorsed to be normal. Objective - Vital Signs/Intake and Output Vital Signs (last 24 hours): Temp Pulse Resp BP Pulse Ox 98.3 F 80 18 134/66 99 12/20/16 17:29 12/20/16 17:29 12/20/16 17:29 12/20/16 17:29 12/20/16 17:29 Intake and Output: 12/20/16 12/21/16 18:59 06:59 Intake Total 897 Output Total 2 Balance 895 - Medications Medications: Current Medications Acetaminophen (Tylenol 325mg Tab) 650 mg PO Q6H PRN PRN Reason: Headache Amlodipine Besylate (Norvasc) 10 mg PO DAILY [facility] Last Admin: 12/20/16 09:37 Dose: 10 mg Aspirin (Ecotrin) 81 mg PO DAILY [facility] Last Admin: 12/20/16 09:38 Dose: 81 mg Atorvastatin Calcium (Lipitor) 80 mg PO HS [facility] Last Admin: 12/19/16 21:26 Dose: 80 mg Furosemide (Lasix) 20 mg PO DAILY [facility] Last Admin: 12/20/16 09:37 Dose: 20 mg Hydrocortisone (Anusol-Hc) 25 mg RC BID [facility] Last Admin: 12/20/16 18:25 Dose: Not Given Hydrocortisone (Anusol-Hc) 0 gm [place] BID PRN PRN Reason: Hemorrhoids Letrozole (Femara) 2.5 mg PO DAILY [facility] Last Admin: 12/20/16 09:38 Dose: 2.5 mg Losartan Potassium (Cozaar) 100 mg PO DAILY [facility] Last Admin: 12/20/16 09:39 Dose: 100 mg Polyethylene Glycol (Miralax) 17 gm PO DAILY [facility] Last Admin: 12/20/16 11:35 Dose: Not Given Tetrahydrozoline HCl/Zinc Sulfate (Visine 0.05% Opht Soln) 0 ml OU DAILY PRN PRN Reason: Allergy symptoms Last Admin: 12/20/16 08:29 Dose: 2 drop Ticagrelor (Brilinta) 90 mg PO DAILY [facility] Last Admin: 12/20/16 09:37 Dose: 90 mg - Labs Labs: 12/20/16 07:10 12/20/16 07:10 PT 10.6 Seconds (9.9-11.8) 12/20/16 09:57 INR 0.98 (0.93-1.08) 12/20/16 09:57 - Constitutional Appears: Well - Head Exam Head Exam: ATRAUMATIC, NORMAL INSPECTION, NORMOCEPHALIC - Eye Exam Eye Exam: EOMI, Normal appearance, PERRL Pupil Exam: NORMAL ACCOMODATION, PERRL - ENT Exam ENT Exam: Mucous Membranes Moist, Normal Exam - Neck Exam Neck Exam: Full ROM, Normal Inspection. absent: Lymphadenopathy - Respiratory Exam Respiratory Exam: Clear to Ausculation Bilateral, NORMAL BREATHING PATTERN - Cardiovascular Exam Cardiovascular Exam: REGULAR RHYTHM, +S1, +S2. absent: Murmur - GI/Abdominal Exam GI & Abdominal Exam: Soft, Normal Bowel Sounds. absent: Tenderness - Rectal Exam Rectal Exam: NORMAL INSPECTION - Exam Exam: Circumcision, NORMAL INSPECTION External exam: NORMAL EXTERNAL EXAM Speculum exam: NORMAL SPECULUM EXAM Bimanual exam: NORMAL BIMANUAL EXAM - Extremities Exam Extremities Exam: Full ROM, Normal Capillary Refill, Normal Inspection. absent : Joint Swelling, Pedal Edema - Back Exam Back Exam: NORMAL INSPECTION - Neurological Exam Neurological Exam: Alert, Awake, CN II-XII Intact, Normal Gait, Oriented x3 - Psychiatric Exam Psychiatric exam: Normal Affect, Normal Mood - Skin Skin Exam: Dry, Intact, Normal Color, Warm Assessment and Plan (1) Arm paresthesia, left Status: Acute (2) Foraminal stenosis of cervical region Status: Acute (3) Hypokalemia Status: Acute (4) Near syncope Status: Acute (5) Thrombocytopenia Status: Acute (6) CAD (coronary artery disease) Status: Acute (7) Chest pain Status: Acute (8) Stented coronary artery Status: Acute - Assessment and Plan (Free Text) Assessment: - Assessment and Plan (Free Text) 76 year old female wit history of Breast cancer 2-14 s/p bilateral mastectomy on Femara chemotherapy, Hypertension, Hyperlipidemia, and CAD s/p 8 cardiac stents on Brilinta presenting with fall and hit to head. Active treatment of hypertensive urgency and syncopal episode workup. GI consultation for bright red blood per rectum with similar episodes of BRBPR associated with constipation and history of hemorrhoids. Prior colonoscopy over ten years ago endorsed to be normal. Plan: >start Anusol BID and hydrocortisone cream daily >start Miralax daily >counselled on increased water and fiber intake >primary team managing syncope workup >will benefit from elective outpatient colonoscopy for further evaluation >will follow clinical course Plan: 76 y/o F with PMH of HTN, CAD s/p stent, HLD, and ITP presents for pre-syncopal episode likely secondary to vasovagal eitology and transient bradycardia. Pt bradycardic and currently awaiting cardiology recommendations. Pt received carotid dopplers yesterday, awaiting official read at this time. Will sign off at this time. Please reconsult as needed. - Continue Brillinta, ASA, and Lipitor - Awaiting Carotid doppler read - Follow up cardiology recommendations for bradycardia
--- NOTE | 2016-12-21 08:01 | CP.PCM.PN ---
<Padmaja Jara - Last Filed: 12/21/16 17:32> Subjective - Date & Time of Evaluation Date of Evaluation: 12/21/16 Time of Evaluation: 07:58 - Subjective Subjective: Gastroenterology Fellow/PGY5 Progress Note Patient slept well overnight. Denies abdominal pain. Tolerating heart healthy diet. Normal bowel movement daily without hematochezia or melena. A 12-point review of system negative except for as above. Objective - Vital Signs/Intake and Output Vital Signs (last 24 hours): Temp Pulse Resp BP Pulse Ox 97.9 F 69 20 151/74 H 98 12/21/16 06:00 12/21/16 06:00 12/21/16 06:00 12/21/16 06:00 12/21/16 06:00 Intake and Output: 12/21/16 12/21/16 06:59 18:59 Intake Total 240 Balance 240 - Medications Medications: Current Medications Acetaminophen (Tylenol 325mg Tab) 650 mg PO Q6H PRN PRN Reason: Headache Amlodipine Besylate (Norvasc) 10 mg PO DAILY [facility] Last Admin: 12/20/16 09:37 Dose: 10 mg Aspirin (Ecotrin) 81 mg PO DAILY [facility] Last Admin: 12/20/16 09:38 Dose: 81 mg Atorvastatin Calcium (Lipitor) 80 mg PO HS [facility] Last Admin: 12/20/16 22:52 Dose: 80 mg Furosemide (Lasix) 20 mg PO DAILY [facility] Last Admin: 12/20/16 09:37 Dose: 20 mg Hydrocortisone (Anusol-Hc) 25 mg RC BID [facility] Last Admin: 12/20/16 18:25 Dose: Not Given Hydrocortisone (Anusol-Hc) 0 gm [place] BID PRN PRN Reason: Hemorrhoids Letrozole (Femara) 2.5 mg PO DAILY [facility] Last Admin: 12/20/16 09:38 Dose: 2.5 mg Losartan Potassium (Cozaar) 100 mg PO DAILY [facility] Last Admin: 12/20/16 09:39 Dose: 100 mg Polyethylene Glycol (Miralax) 17 gm PO DAILY [facility] Last Admin: 12/20/16 11:35 Dose: Not Given Tetrahydrozoline HCl/Zinc Sulfate (Visine 0.05% Opht Soln) 0 ml OU DAILY PRN PRN Reason: Allergy symptoms Last Admin: 07/31/17 08:29 Dose: 2 drop Ticagrelor (Brilinta) 90 mg PO DAILY [facility] Last Admin: 12/20/16 09:37 Dose: 90 mg - Labs Labs: 12/20/16 07:10 12/20/16 07:10 PT 10.6 Seconds (9.9-11.8) 12/20/16 09:57 INR 0.98 (0.93-1.08) 12/20/16 09:57 - Constitutional Appears: Non-toxic, No Acute Distress - Head Exam Head Exam: ATRAUMATIC, NORMOCEPHALIC - Eye Exam Eye Exam: EOMI, PERRL Pupil Exam: PERRL. absent: Miosis, Mydriatic - ENT Exam ENT Exam: Mucous Membranes Moist, Normal Oropharynx - Neck Exam Neck Exam: Full ROM, Normal Inspection - Respiratory Exam Respiratory Exam: Clear to Ausculation Bilateral. absent: Rales, Rhonchi, Wheezes - Cardiovascular Exam Cardiovascular Exam: RRR, +S1, +S2. absent: Gallop, Rubs - GI/Abdominal Exam GI & Abdominal Exam: Soft, Normal Bowel Sounds. absent: Distended, Firm, Guarding, Rigid, Tenderness, Organomegaly, Rebound - Extremities Exam Extremities Exam: Full ROM. absent: Pedal Edema - Back Exam Back Exam: NORMAL INSPECTION - Neurological Exam Neurological Exam: Alert, Awake - Psychiatric Exam Psychiatric exam: Normal Affect, Normal Mood - Skin Skin Exam: Dry, Intact, Normal Color, Warm Assessment and Plan - Assessment and Plan (Free Text) Assessment: 76 year old female wit history of Breast cancer 2-14 s/p bilateral mastectomy on Femara chemotherapy, Hypertension, Hyperlipidemia, and CAD s/p 8 cardiac stents on Brilinta with active treatment of syncopal episode and hypertensive urgency. GI consultation for bright red blood per rectum due to constipation and Grade III hemorrhoids. Prior colonoscopy over ten years ago endorsed to be normal. Plan: >continue Miralax, Anusol BID, and hydrocortisone cream daily >counselled patient on prevention of constipation to decrease hemorrhoid irritation and BRBPR >counselled on increased water and fiber intake >tolerating heart healthy diet >patient to follow up with Dr. Pat for outpatient colonoscopy -to rule out other causes of intermittent episodes of BRBPR Q3-5 months >thank you for opportunity to participate in the care of this patient. Please contact with questions or concerns <Guillermo Amaya - Last Filed: 12/21/16 19:25> Objective - Vital Signs/Intake and Output Vital Signs (last 24 hours): Temp Pulse Resp BP Pulse Ox 97.9 F 80 20 131/63 98 12/21/16 17:51 12/21/16 18:00 12/21/16 17:55 12/21/16 17:55 12/21/16 06:00 Intake and Output: 12/21/16 12/22/16 18:59 06:59 Intake Total 360 Balance 360 - Medications Medications: Current Medications Acetaminophen (Tylenol 325mg Tab) 650 mg PO Q6H PRN PRN Reason: Headache Amlodipine Besylate (Norvasc) 10 mg PO DAILY [facility] Last Admin: 12/21/16 09:32 Dose: 10 mg Aspirin (Ecotrin) 81 mg PO DAILY [facility] Last Admin: 12/21/16 09:32 Dose: 81 mg Atorvastatin Calcium (Lipitor) 80 mg PO HS [facility] Last Admin: 12/20/16 22:52 Dose: 80 mg Furosemide (Lasix) 20 mg PO DAILY [facility] Last Admin: 12/21/16 09:32 Dose: 20 mg Hydrocortisone (Anusol-Hc) 25 mg RC BID [facility] Last Admin: 12/21/16 18:26 Dose: Not Given Hydrocortisone (Anusol-Hc) 0 gm [place] BID PRN PRN Reason: Hemorrhoids Letrozole (Femara) 2.5 mg PO DAILY [facility] Last Admin: 12/21/16 10:09 Dose: 2.5 mg Losartan Potassium (Cozaar) 100 mg PO DAILY [facility] Last Admin: 12/21/16 09:32 Dose: 100 mg Polyethylene Glycol (Miralax) 17 gm PO DAILY [facility] Last Admin: 12/21/16 09:32 Dose: 17 gm Tetrahydrozoline HCl/Zinc Sulfate (Visine 0.05% Opht Soln) 0 ml OU DAILY PRN PRN Reason: Allergy symptoms Last Admin: 12/20/16 08:29 Dose: 2 drop Ticagrelor (Brilinta) 90 mg PO DAILY [facility] Last Admin: 12/21/16 09:31 Dose: 90 mg - Labs Labs: 12/20/16 07:10 12/20/16 07:10 PT 10.6 Seconds (9.9-11.8) 12/20/16 09:57 INR 0.98 (0.93-1.08) 12/20/16 09:57 Attending/Attestation - Attestation I have personally seen and examined this patient.: Yes I have fully participated in the care of the patient.: Yes I have reviewed all pertinent clinical information, including history, physical exam and plan: Yes Notes (Text): 12/21/16 19:23 76 year old female with h/o breast cancer, HTN, HLD, CAD s/p multiple stents a/ w HTN urgency, syncope, now s/p cath, also with mild BRBPR due to hemorrhoids and constipation. 1. Hemorrhoids 2. Constipation Plan: -continue bowel regimen as above -continue anusol as above -consider outpatient colonoscopy with Dr. Pat outpatient -will sign off
[2016-12-21] MEDS: POLYETHYLENE GLYCOL 3350 17 GM/Dose PACKET PO SCH (09:32)
--- NOTE | 2016-12-21 10:06 | CP.PCM.PN ---
Subjective - Date & Time of Evaluation Date of Evaluation: 12/21/16 Time of Evaluation: 09:30 - Subjective Subjective: called by nurse to se pt for ? afib and jaw pain On exam pt c/o jaw pain and chest pressure , denies sob, denies nausea, denies radiation , denies back pain placed pt in bed, vS obtained- stable-O2 applied EKg obtained that shows NRS Administer 1 sl nitro with complete relief of jaw and chest pressure - remians hemodynamically stable Assmt : ms erickson is a 76 yr old with pmh significant for htn, cad with multiple stents and hypercholerteremia who was admited for fall/ dizziness and now complains of chest pressure and jaw pain relieved with sl nitro Plan : chest pain/ angina - Discussed with Dr Mei and Dr Sanchez pt agreeable to cath - currently on Asa and Bril[place] (with hx of pci will maintain NPO and add on for Cath today as per Dr Mei , pt is agreeable left pt resting in bed with no additional complaints microbiology lab manager made aware pt npo for procedure Hina Palacios Objective - Vital Signs/Intake and Output Vital Signs (last 24 hours): Temp Pulse Resp BP Pulse Ox 97.9 F 69 20 132/72 98 12/21/16 06:00 12/21/16 06:00 12/21/16 06:00 12/21/16 09:32 12/21/16 06:00 Intake and Output: 12/21/16 12/21/16 06:59 18:59 Intake Total 240 Balance 240 - Medications Medications: Current Medications Acetaminophen (Tylenol 325mg Tab) 650 mg PO Q6H PRN PRN Reason: Headache Amlodipine Besylate (Norvasc) 10 mg PO DAILY [facility] Last Admin: 12/21/16 09:32 Dose: 10 mg Aspirin (Ecotrin) 81 mg PO DAILY [facility] Last Admin: 12/21/16 09:32 Dose: 81 mg Atorvastatin Calcium (Lipitor) 80 mg PO HS [facility] Last Admin: 12/20/16 22:52 Dose: 80 mg Furosemide (Lasix) 20 mg PO DAILY [facility] Last Admin: 12/21/16 09:32 Dose: 20 mg Hydrocortisone (Anusol-Hc) 25 mg RC BID [facility] Last Admin: 12/21/16 09:46 Dose: Not Given Hydrocortisone (Anusol-Hc) 0 gm [place] BID PRN PRN Reason: Hemorrhoids Letrozole (Femara) 2.5 mg PO DAILY [facility] Last Admin: 12/20/16 09:38 Dose: 2.5 mg Losartan Potassium (Cozaar) 100 mg PO DAILY [facility] Last Admin: 12/21/16 09:32 Dose: 100 mg Polyethylene Glycol (Miralax) 17 gm PO DAILY [facility] Last Admin: 12/21/16 09:32 Dose: 17 gm Tetrahydrozoline HCl/Zinc Sulfate (Visine 0.05% Opht Soln) 0 ml OU DAILY PRN PRN Reason: Allergy symptoms Last Admin: 12/20/16 08:29 Dose: 2 drop Ticagrelor (Brilinta) 90 mg PO DAILY [facility] Last Admin: 12/21/16 09:31 Dose: 90 mg - Labs Labs: 12/20/16 07:10 12/20/16 07:10 PT 10.6 Seconds (9.9-11.8) 12/20/16 09:57 INR 0.98 (0.93-1.08) 12/20/16 09:57
--- NOTE | 2016-12-21 10:17 | CARD ---
APPROVED REPORT EKG Measurement Heart [id number] <Conclusion> Normal sinus rhythm Left ventricular hypertrophy STTW changes, new Prolonged QTc.
[2016-12-21] MEDS ORDERED: Lidocaine 2% Inj (20ml) ONE (12:37)
[2016-12-21] MEDS ORDERED: Midazolam 2 MG/2 ML VIAL ONE ×2 (12:38→14:37)
[2016-12-21] MEDS ORDERED: Iodixanol 320 MG/ML 200 ML BOTTLE IV ONE (12:39)
--- NOTE | 2016-12-21 19:19 | CARDCATH ---
PROCEDURE DATE: 12/21/2016 HISTORY: The patient is a 76-year-old woman with multiple cardiac risk factors who developed epigastric chest pressure with radiation to the jaw. EKG shows no acute changes. The patient has had multivessel CAD in the past because of her symptoms that developed sudden name on rest, cardiac catheterization was recommended. PROCEDURE: Left heart catheterization and coronary aortography and left ventriculogram. The right femoral artery was cannulated with a 6-Swedish sheaths, there were no complications. Findings on catheterization revealed a left ventricle that contracted normally. Estimated ejection fraction of 60%. Her coronary anatomy revealed a right dominant circulation. The RCA revealed a patent stent in its ostium extending into the proximal portion of the vessel. The left main artery was unremarkable. The LAD and diagonal vessels revealed intimal irregularities with a patent stent in the proximal portion of the LAD. The circumflex artery and obtuse marginal branch revealed a patent stent in its proximal portion. Prior to the LAD stent, there is a 50% stenosis noted. Angio-Seal was used to close the femoral artery site. The patient tolerated the procedure well. SUMMARY: 1. The procedure revealed noncritical proximal LAD stenosis of 50%. 2. Patent stents in RCA, circumflex artery, and diagonal vessels. 3. Normal LV function. Given these findings, the patient's treatment should be medical. We will continue her cardiac risk reduction program. Roshan Mei MD
--- NOTE | 2016-12-21 20:22 | CP.PCM.PN ---
Subjective - Date & Time of Evaluation Date of Evaluation: 12/21/16 Time of Evaluation: 05:10 - Subjective Subjective: Subjective: pt had chest pain and jaw pain today seen by [facility] LAYER elyse . and dr arian phan , denies sob, denies nausea, denies radiation , denies back pain placed pt in bed, vS obtained- stable-O2 applied by ELYSE EKg obtained that shows NRS Administer 1 sl nitro with complete relief of jaw and chest pressure - remians hemodynamically stable WENT FOR CATH , D/D WITH DR ARIAN PHAN Objective - Vital Signs/Intake and Output Vital Signs (last 24 hours): Temp Pulse Resp BP Pulse Ox 97.9 F 72 18 156/73 H 98 12/21/16 17:51 12/21/16 18:45 12/21/16 18:45 12/21/16 18:45 12/21/16 06:00 Intake and Output: 12/21/16 12/22/16 18:59 06:59 Intake Total 360 Balance 360 - Medications Medications: Current Medications Acetaminophen (Tylenol 325mg Tab) 650 mg PO Q6H PRN PRN Reason: Headache Amlodipine Besylate (Norvasc) 10 mg PO DAILY [facility] Last Admin: 12/21/16 09:32 Dose: 10 mg Aspirin (Ecotrin) 81 mg PO DAILY [facility] Last Admin: 12/21/16 09:32 Dose: 81 mg Atorvastatin Calcium (Lipitor) 80 mg PO HS [facility] Last Admin: 12/20/16 22:52 Dose: 80 mg Furosemide (Lasix) 20 mg PO DAILY [facility] Last Admin: 12/21/16 09:32 Dose: 20 mg Hydrocortisone (Anusol-Hc) 25 mg RC BID [facility] Last Admin: 12/21/16 18:26 Dose: Not Given Hydrocortisone (Anusol-Hc) 0 gm IL BID PRN PRN Reason: Hemorrhoids Letrozole (Femara) 2.5 mg PO DAILY [facility] Last Admin: 12/21/16 10:09 Dose: 2.5 mg Losartan Potassium (Cozaar) 100 mg PO DAILY [facility] Last Admin: 12/21/16 09:32 Dose: 100 mg Polyethylene Glycol (Miralax) 17 gm PO DAILY [facility] Last Admin: 12/21/16 09:32 Dose: 17 gm Tetrahydrozoline HCl/Zinc Sulfate (Visine 0.05% Opht Soln) 0 ml OU DAILY PRN PRN Reason: Allergy symptoms Last Admin: 12/20/16 08:29 Dose: 2 drop Ticagrelor (Brilinta) 90 mg PO DAILY [facility] Last Admin: 12/21/16 09:31 Dose: 90 mg - Labs Labs: 12/20/16 07:10 12/20/16 07:10 PT 10.6 Seconds (9.9-11.8) 12/20/16 09:57 INR 0.98 (0.93-1.08) 12/20/16 09:57 - Constitutional Appears: Well - Head Exam Head Exam: ATRAUMATIC, NORMAL INSPECTION, NORMOCEPHALIC - Eye Exam Eye Exam: EOMI, Normal appearance, PERRL Pupil Exam: NORMAL ACCOMODATION, PERRL - ENT Exam ENT Exam: Mucous Membranes Moist, Normal Exam - Neck Exam Neck Exam: Full ROM, Normal Inspection. absent: Lymphadenopathy - Respiratory Exam Respiratory Exam: Clear to Ausculation Bilateral, NORMAL BREATHING PATTERN - Cardiovascular Exam Cardiovascular Exam: REGULAR RHYTHM, +S1, +S2. absent: Murmur - GI/Abdominal Exam GI & Abdominal Exam: Soft, Normal Bowel Sounds. absent: Tenderness - Rectal Exam Rectal Exam: NORMAL INSPECTION - Exam Exam: Circumcision, NORMAL INSPECTION External exam: NORMAL EXTERNAL EXAM Speculum exam: NORMAL SPECULUM EXAM Bimanual exam: NORMAL BIMANUAL EXAM - Extremities Exam Extremities Exam: Full ROM, Normal Capillary Refill, Normal Inspection. absent : Joint Swelling, Pedal Edema - Back Exam Back Exam: NORMAL INSPECTION - Neurological Exam Neurological Exam: Alert, Awake, CN II-XII Intact, Normal Gait, Oriented x3 - Psychiatric Exam Psychiatric exam: Normal Affect, Normal Mood - Skin Skin Exam: Dry, Intact, Normal Color, Warm Assessment and Plan (1) Arm paresthesia, left Status: Acute (2) Foraminal stenosis of cervical region Status: Acute (3) Hypokalemia Status: Acute (4) Near syncope Status: Acute (5) Thrombocytopenia Status: Acute (6) CAD (coronary artery disease) Status: Acute (7) Chest pain Status: Acute (8) Stented coronary artery Status: Acute - Assessment and Plan (Free Text) Assessment: - Assessment and Plan (Free Text) 76 year old female wit history of Breast cancer 2-14 s/p bilateral mastectomy on Femara chemotherapy, Hypertension, Hyperlipidemia, and CAD s/p 8 cardiac stents on Brilinta with active treatment of syncopal episode and hypertensive urgency. GI consultation for bright red blood per rectum due to constipation and Grade III hemorrhoids. Prior colonoscopy over ten years ago endorsed to be normal. Plan: >continue Miralax, Anusol BID, and hydrocortisone cream daily >counselled patient on prevention of constipation to decrease hemorrhoid irritation and BRBPR >counselled on increased water and fiber intake >tolerating heart healthy diet >patient to follow up with Dr. Pat for outpatient colonoscopy -to rule out other causes of intermittent episodes of BRBPR Q3-5 months. TODAY went for cath by dr arian savage , need medicle treatment , order tmj xrays
[2016-12-22 05:42] VITALS: O2SAT 97
--- NOTE | 2016-12-22 08:34 | PN ---
DATE: 12/22/2016 CARDIOLOGY FOLLOWUP SUBJECTIVE: The patient is ambulating in the room without symptoms. PHYSICAL EXAMINATION: VITAL SIGNS: Blood pressure is 111/44, heart rate in the 70s. NECK: Negative JVD. LUNGS: Without rales. HEART: Reveals S1 and S2. EXTREMITIES: Without edema. LABORATORY: Laboratories were not drawn today. IMPRESSION: 1. Status post cardiac catheterization with patent stent in all three coronary arteries. 2. Stable angina. 3. Hypercholesterolemia. 4. Hypertension. PLAN: Given these findings, the patient can be discharged from a cardiac perspective. We will decrease her Brilinta 60 t.i.d. From a cardiac perspective, the patient can be discharged. Roshan Mei MD
[2016-12-22] MEDS ORDERED: TICAGRELOR 60 MG PO SCH (10:00)
[2016-12-22] MEDS: POLYETHYLENE GLYCOL 3350 17 GM/Dose PACKET PO SCH (10:23)
--- NOTE | 2016-12-22 11:24 | RAD ---
PROCEDURE: Radiographs of the temporomandibular joints. HISTORY: jaw/temporal pain COMPARISON: None available. TECHNIQUE: AP Alanna's view, as well as open and close mouth lateral views of the temporomandibular joints were performed. FINDINGS: There is no evidence of fracture. The temporomandibular joints are grossly unremarkable. No bony destructive lesion identified. IMPRESSION: Unremarkable radiographs of the temporomandibular joints.
--- NOTE | 2016-12-22 11:58 | CP.PCM.DIS ---
Provider - Provider Date of Admission: 12/19/16 23:20 Attending physician: Zaira Sanchez MD Primary care physician: Alexey Prince MD Time Spent in preparation of Discharge (in minutes): 60 Diagnosis - Discharge Diagnosis (1) Arm paresthesia, left Status: Acute (2) Foraminal stenosis of cervical region Status: Acute (3) Hypokalemia Status: Acute (4) Near syncope Status: Acute (5) Thrombocytopenia Status: Acute (6) CAD (coronary artery disease) Status: Acute (7) Chest pain Status: Acute (8) Stented coronary artery Status: Acute Hospital Course - Lab Results Lab Results: Most Recent Lab Values WBC 5.3 10^3/ul (4.5-11.0) 12/20/16 07:10 RBC 3.96 10^6/uL (3.5-6.1) 12/20/16 07:10 Hgb 11.8 gm/dL (12.0-16.0) L 12/20/16 07:10 Hct 34.8 % (36.0-48.0) L 12/20/16 07:10 MCV 87.9 fL (80.0-105.0) 12/20/16 07:10 MCH 29.8 pg (25.0-35.0) 12/20/16 07:10 MCHC 33.9 g/dl (31.0-37.0) 12/20/16 07:10 RDW 14.2 % (11.5-14.5) 12/20/16 07:10 Plt Count 51 10^3/uL (120.0-450.0) L 12/20/16 07:10 MPV 11.9 fl (7.0-11.0) H 12/20/16 07:10 Gran % 59.1 % (50.0-68.0) 12/18/16 15:50 Lymph % (Auto) 29.0 % (22.0-35.0) 12/18/16 15:50 [place] % (Auto) 6.7 % (1.0-6.0) H 12/18/16 15:50 Eos % (Auto) 5.0 % (1.5-5.0) 12/18/16 15:50 Baso % (Auto) 0.2 % (0.0-3.0) 12/18/16 15:50 Gran # 4.82 (1.4-6.5) 12/18/16 15:50 Lymph # 2.4 (1.2-3.4) 12/18/16 15:50 [place] # 0.6 (0.1-0.6) 12/18/16 15:50 Eos # 0.4 (0.0-0.7) 12/18/16 15:50 Baso # 0.02 K/mm3 (0.0-2.0) 12/18/16 15:50 PT 10.6 Seconds (9.9-11.8) 12/20/16 09:57 INR 0.98 (0.93-1.08) 12/20/16 09:57 Sodium 145 mmol/L (132-148) 12/20/16 07:10 Potassium 3.8 mmol/L (3.6-5.0) 12/20/16 07:10 Chloride 112 mmol/L (98-107) H 12/20/16 07:10 Carbon Dioxide 21 mmol/L (21-33) 12/20/16 07:10 Anion Gap 16 (10-20) 12/20/16 07:10 BUN 18 mg/dL (7-21) 12/20/16 07:10 Creatinine 1.1 mg/dL (0.5-1.4) 12/20/16 07:10 Est GFR ( Amer) 58 12/20/16 07:10 Est GFR (Non-Af Amer) 48 12/20/16 07:10 Random Glucose 117 mg/dL (70-110) H 12/20/16 07:10 Hemoglobin A1c 6.3 % (4.2-6.5) 12/20/16 07:10 Calcium 8.8 mg/dL (8.4-10.5) 12/20/16 07:10 Iron 60 ug/dL (45-180) 12/18/16 21:58 TIBC 330 ug/dL (265-497) 12/18/16 21:58 % Saturation 18 % (20-55) L 12/18/16 21:58 Total Bilirubin 0.6 mg/dL (0.2-1.3) 12/19/16 07:11 AST 26 U/L (15-39) 12/19/16 07:11 ALT 28 U/L (7-56) 12/19/16 07:11 Alkaline Phosphatase 67 U/L (38-133) 12/19/16 07:11 Lactate Dehydrogenase 485 U/L (333-699) 12/18/16 21:57 Total Creatine Kinase 75 U/L (35-230) 12/18/16 21:57 Troponin I < 0.01 ng/mL 12/21/16 10:50 NT-Pro-B Natriuret Pep 408 pg/mL (0-450) 12/18/16 15:23 Total Protein 6.6 g/dL (5.8-8.3) 12/19/16 07:11 Albumin 3.7 g/dL (3.0-4.8) 12/19/16 07:11 Globulin 2.9 gm/dL 12/19/16 07:11 Albumin/Globulin Ratio 1.3 (1.1-1.8) 12/19/16 07:11 Triglycerides 198 mg/dL (35-160) H 12/18/16 21:57 Cholesterol 119 mg/dL (130-200) L 12/18/16 21:57 LDL Cholesterol Direct 45 mg/dL (0-129) 12/18/16 21:57 HDL Cholesterol 44 mg/dL (29-60) 12/18/16 21:57 Vitamin B12 407 pg/mL (239-931) 12/18/16 21:57 Folate 7.3 ng/mL 12/18/16 21:57 TSH 3rd Generation 3.5 MIU/ml (0.46-4.68) 12/19/16 07:11 Urine Color Yellow (YELLOW) 12/18/16 15:23 Urine Appearance Sl cloudy (CLEAR) 12/18/16 15:23 Urine pH 6.5 (4.7-8.0) 12/18/16 15:23 Ur Specific [place] 1.025 (1.005-1.035) 12/18/16 15:23 Urine Protein 100 mg/dL (<30 mg/dL) H 12/18/16 15:23 Urine Glucose (UA) Negative mg/dL (NEGATIVE) 12/18/16 15:23 Urine Ketones Negative mg/dL (NEGATIVE) 12/18/16 15:23 Urine Blood Moderate (NEGATIVE) H 12/18/16 15:23 Urine Nitrate Negative (NEGATIVE) 12/18/16 15:23 Urine Bilirubin Negative (NEGATIVE) 12/18/16 15:23 Urine Urobilinogen 0.2 E.U./dL (<1 E.U./dL) 12/18/16 15:23 Ur Leukocyte Esterase Negative [place]/uL (NEGATIVE) 12/18/16 15:23 Urine RBC 15 - 20 /hpf (0-2) 12/18/16 15:23 Urine WBC 5 - 10 /hpf (0-6) 12/18/16 15:23 Ur Epithelial Cells 3 - 4 /hpf (0-5) 12/18/16 15:23 Urine Bacteria Few (NEG) 12/18/16 15:23 Blood Type A POSITIVE 12/19/16 07:30 Antibody Screen Negative 12/19/16 07:30 BBK History Checked Patient has bt 12/19/16 07:30 - Hospital Course Hospital Course: 76 y/o female, pmh including htn/hyperlipidemia/CAD with multiple stents/ITP on brillinta, penicillin allergy, c/o dizziness and fall with head injury x 8 hours. Pt. was in the shower early this morning around 7am, bend down to wash her thigh which she feels dizziness as about to pass out which she fall outside of the tube, landed on the floor which she is not sure if she has LOC or not. Apparently, the patient started to have lt. hand numbness and tingling with dizziness about 5 days ago which she feels as if she will pass out which she refused to come to the ER. Pt. is here at the ER with elevated BP with systolic over 200s with no headache or dizziness, no chest pain or shortness of breath, no palpitation, no other medical or psychological complaints. - Assessment and Plan 76 year old female wit history of Breast cancer 2-14 s/p bilateral mastectomy on Femara chemotherapy, Hypertension, Hyperlipidemia, and CAD s/p 8 cardiac stents on Brilinta with active treatment of syncopal episode and hypertensive urgency. GI consultation for bright red blood per rectum due to constipation and Grade III hemorrhoids. Prior colonoscopy over ten years ago endorsed to be normal. Plan: >continue Miralax, Anusol BID, and hydrocortisone cream daily >counselled patient on prevention of constipation to decrease hemorrhoid irritation and BRBPR >counselled on increased water and fiber intake >tolerating heart healthy diet >patient to follow up with Dr. Pat for outpatient colonoscopy -to rule out other causes of intermittent episodes of BRBPR Q3-5 months. went for cath by dr benitez savage , need medicle treatment , order tmj xrays Discharge Exam - Head Exam Head Exam: ATRAUMATIC, NORMAL INSPECTION, NORMOCEPHALIC - Eye Exam Eye Exam: EOMI, Normal appearance, PERRL Pupil Exam: NORMAL ACCOMODATION, PERRL - GI/Abdominal Exam GI & Abdominal Exam: Normal Bowel Sounds - Rectal Exam Rectal Exam: NORMAL INSPECTION - Exam Exam: Circumcision, NORMAL INSPECTION External exam: NORMAL EXTERNAL EXAM Speculum exam: NORMAL SPECULUM EXAM Bimanual exam: NORMAL BIMANUAL EXAM - Neurological Exam Neurological exam: Alert, CN II-XII Intact, Normal Gait, Oriented x3, Reflexes Normal - Psychiatric Exam Psychiatric exam: Normal Affect, Normal Mood - Skin Skin Exam: Dry, Intact, Normal Color, Warm Discharge Plan - Follow Up Plan Condition: STABLE Disposition: HOME/ ROUTINE Referrals: Alexey Prince [Primary Care Provider] -
[2016-12-22 12:06] VITALS: BP 136/60; PULSE 69; RESP 20; TEMP 98.8
== END 2016-12-22 14:15 | disposition home or self-care (01) | DRG 287 ==
LOC: ED 14:58 → ERH 18:07 → 2RNO 20:55 → OBSVTOIN 12-19 23:20 → 2RSO 12-21 16:00
PROVIDERS: ADMIT Internal Medicine; ATTEND Internal Medicine
PROC: 4A023N7 Measurement of Cardiac Sampling and Pressure, Left Heart, Percutaneous Approach (ICD-10-PCS; principal; 2016-12-21)
PROC: B2111ZZ Fluoroscopy of Multiple Coronary Arteries using Low Osmolar Contrast (ICD-10-PCS; 2016-12-21)
PROC: B2151ZZ Fluoroscopy of Left Heart using Low Osmolar Contrast (ICD-10-PCS; 2016-12-21)
DX: R00.1 Bradycardia, unspecified (principal); D69.3 Immune thrombocytopenic purpura; D64.9 Anemia, unspecified; I25.110 Atherosclerotic heart disease of native coronary artery with unstable angina pectoris; W18.2XXA Fall in (into) shower or empty bathtub, initial encounter; M48.02 Spinal stenosis, cervical region; I16.0 Hypertensive urgency; E78.00 Pure hypercholesterolemia, unspecified; E78.5 Hyperlipidemia, unspecified; I48.91 Unspecified atrial fibrillation; E87.6 Hypokalemia; I10 Essential (primary) hypertension; K59.00 Constipation, unspecified; K64.2 Third degree hemorrhoids; M47.9 Spondylosis, unspecified; Y93.E1 Activity, personal bathing and showering; Z79.82 Long term (current) use of aspirin; Z79.899 Other long term (current) drug therapy; Z85.3 Personal history of malignant neoplasm of breast; Z88.0 Allergy status to penicillin; Z90.13 Acquired absence of bilateral breasts and nipples; Z95.5 Presence of coronary angioplasty implant and graft; R20.8 Other disturbances of skin sensation; R55 Syncope and collapse

== ENCOUNTER 2017-06-19 12:22 | Inpatient (IN) | payer MEDICARE ==
[2017-06-19 12:27] VITALS: BMI 24.2
[2017-06-19] MEDS ORDERED: Nitroglycerin 2% Ointment Foilpak UD TOP STA (12:42)
[2017-06-19] MEDS ORDERED: Metoprolol 1 mg/ml Inj IVP STA (12:43)
--- NOTE | 2017-06-19 12:45 | ED PDOC ---
Arrival/HPI - General Chief Complaint: Chest Pain Time Seen by Provider: 06/19/17 12:34 Historian: Patient, Family - History of Present Illness Narrative History of Present Illness (Text): 06/19/17 12:50 77 year old female, whose medical history includes CAD and 8 stents, presents to the Emergency Department complaining of left sided chest discomfort/pressure rated at 6/10 and severe bilateral jaw pain that was present when she went to bed last night around 18:00. Patient also complains of associated weakness, fatigue, diaphoresis, vomiting once last night and once this morning, and questionable shortness of breath. pt states when she awoke this morning, left chest pain/pressure remained and b/l jaw pain became worse, at most pain was 8/ 10; non-radiating; pt denied LOC, no fever/chills, no palpitations, no abd pain , no numbness/tingling, no urinary/bowel changes, no fall/trauma/sick contact, no travel; pt is here for further eval Patient reports taking Aspirin 81mg x2 and nitroglycerine this morning with slight temporary relief. pt denied other complaints pt is here for further eval. 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 Mei 06/19/17 14:25 Time/Duration: Other (16 hours) Symptom Onset: Gradual Symptom Course: Worsening Quality: Pressure, Tightness Activities at Onset: Rest Context: Home Past Medical History - Provider Review Nursing Documentation Reviewed: Yes - Travel History Have you recently traveled outside [place] w/in the past 3 mons?: No - Past History Past History: No Previous - Infectious Disease Hx of Infectious Diseases: None - Tetanus Immunization Tetanus Immunization: Unknown - Past Medical History Past Medical History: No Previous - Cardiac Hx DC: Yes Hx Hypertension: Yes Other/Comment: 8 cardiac stents. Breast CA 2008 - Neurological Hx Paralysis: No - HEENT Other/Comment: no thin liquids - Renal Hx Renal Disorder: No - Endocrine/Metabolic Hx Endocrine Disorders: No - Hematological/Oncological Hx Blood Disorders: No Hx Blood Transfusions: No Hx Blood Transfusion Reaction: No Hx Cancer: Yes (breast ca) Other/Comment: double mastectomy - Integumentary Hx Dermatological Disorder: No - Musculoskeletal/Rheumatological Hx Musculoskeletal Disorders: No - Gastrointestinal Hx Gastrointestinal Disorders: No - Genitourinary/Gynecological Hx Genitourinary Disorders: No - Psychiatric Hx Psychophysiologic Disorder: No Hx Emotional Abuse: No Hx Physical Abuse: No Hx Substance Use: No - Past Surgical History Past Surgical History: Non-Contributing - Surgical History Hx Cardiac Catheterization: Yes (8 stents) Hx Coronary Stent: Yes Hx Mastectomy: Yes (double) Other/Comment: cardiac stent - Anesthesia Hx Anesthesia: No Hx Anesthesia Reactions: Yes (NAUSEA/VOMITING (AFTER [facility]CA/[facility])) Hx Malignant Hyperthermia: No - Suicidal Assessment Feels Threatened In Home Enviroment: No Family/Social History - Physician Review Nursing Documentation Reviewed: Yes Family/Social History: Unknown Family HX Smoking Status: Never Smoked Hx Alcohol Use: No Hx Substance Use: No Hx Substance Use Treatment: No Allergies/Home Meds Allergies/Adverse Reactions: Allergies Penicillins Allergy (Verified 10/05/15 12:17) RASH Home Medications: Home Meds Medication Instructions Recorded Confirmed Aspirin [Ecotrin] 81 mg PO DAILY 12/18/16 06/19/17 Aspirin [Aspirin Chewable] 1 tab PO DAILY 06/19/17 06/19/17 Furosemide [Lasix] 1 tab PO DAILY 06/19/17 06/19/17 Letrozole [Femara] 1 tab PO DAILY 06/19/17 06/19/17 Losartan [Cozaar] 1 tab PO DAILY 06/19/17 06/19/17 Metoprolol Succinate [Toprol XL] 1 tab PO DAILY 06/19/17 06/19/17 Nitroglycerin [Nitrostat SL Tab] 0.4 mg SL PRN PRN 06/19/17 06/19/17 Rosuvastatin Calcium [Crestor] 1 tab PO DAILY 06/19/17 06/19/17 hydrALAZINE [Apresoline] 1 tab PO BID 06/19/17 06/19/17 Review of Systems - Physician Review All systems were reviewed & negative as marked: Yes - Review of Systems Constitutional: Fatigue, Night Sweats Eyes: Normal ENT: Normal, Other (severe jaw pain) Respiratory: SOB (questionable) Cardiovascular: Chest Pain (left sided chest discomfort/pressure) Gastrointestinal: Vomiting Genitourinary Female: Normal Musculoskeletal: Normal Skin: Normal Neurological: Normal Endocrine: Diaphoresis Hemo/Lymphatic: Normal Psychiatric: Normal Physical Exam Vital Signs Reviewed: Yes Vital Signs Temp Pulse Resp BP Pulse Ox 06/19/17 13:16 79 18 133/76 100 06/19/17 13:01 103 H 149/72 06/19/17 12:52 98.4 F 103 H 16 149/78 98 Temperature: Afebrile Blood Pressure: Normal Pulse: Tachycardic Respiratory Rate: Normal Appearance: Positive for: Well-Appearing, Other (uncomfortable, resting in bed, alert/awake, NAD, GCS = 15, oriented x 3) Pain Distress: Moderate Mental Status: Positive for: Alert and Oriented X 3 - Systems Exam Head: Present: Atraumatic, Normocephalic Pupils: Present: PERRL Extroacular Muscles: Present: EOMI Conjunctiva: Present: Normal Ears: Present: Normal Mouth: Present: Moist Mucous Membranes, Normal Teeth Pharnyx: Present: Normal Nose (External): Present: Atraumatic Nose (Internal): Present: Normal Inspection Neck: Present: Normal Range of Motion, Trachea Midline. No: MIDLINE TENDERNESS Respiratory/Chest: Present: Clear to Auscultation, Good Air Exchange, Other ( CTA b/l, no w/r/r, no accessory muscle use noted, no tachypenia). No: Respiratory Distress, Accessory Muscle Use Cardiovascular: Present: Regular Rate and Rhythm, Normal S1, S2. No: Murmurs Abdomen: Present: Normal Bowel Sounds, Other (well nourished female, no focal tenderness, no bauer's sign, no mcburney's point tenderness). No: Tenderness, Distention, Peritoneal Signs Back: Present: Normal Inspection. No: CVA Tenderness Upper Extremity: Present: Normal Inspection, Normal ROM, NORMAL PULSES, Neurovascularly Intact, Capillary Refill < 2s. No: Cyanosis, Edema Lower Extremity: Present: Normal Inspection, NORMAL PULSES, Normal ROM, Neurovascularly Intact, Capillary Refill < 2 s. No: Edema Neurological: Present: GCS=15, CN II-XII Intact, Speech Normal Skin: Present: Warm, Dry, Normal Color. No: Rashes Psychiatric: Present: Alert, Oriented x 3, Normal Insight, Normal Concentration Medical Decision Making ED Course and Treatment: 06/19/17 12:47 Impression: 77 year old female presents to the Emergency Department complaining of left sided chest discomfort/pressure and bilateraly jaw pain. I have considered all Differential Diagnosis regarding patient's chief medical complaints/clinical findings including but not limited to: ACS vs. infectious cause, unlikely traumatic. Plan: -- Chest xray -- EKG -- Urinalysis -- Labs -- Lopressor, NTG -- Will consult cardiology -- Reassess and disposition Progress Notes: 06/19/17 12:53 Discussed case in detail with Dr. Roshan Mei who is aware of the patient in the Emergency Department. Dr. Mei would like for the patient to be treated medically: Plavix 300mg, Lopressor, Lovenox 1mg/kg. Would like to admit the patient to Dr. Wendy Zamora. 06/19/17 12:58 Dr. Wendy Zamora made aware of the patient's medical presentation in the Emergency Department. Agrees with admission. 06/19/17 14:36 pt is currently chest pain free vital signs stabilized pt/family are made aware of pt's medical results agrees with admission Re-evaluation Time: 13:27 Reassessment Condition: Re-examined, Improved - Critical Care Critical Care Minutes: 45 minutes Critical Care Time: Excluding Proc Time Narrative Critical Care (Text): 06/19/17 14:39 critical care time: 45min, excluding procedure time, excluding time teaching residents/students/mid-level providers; including initial eval/diagnosis, diagnostic interpretation, re-eval, consultations, final disposition - Lab Interpretations I have reviewed the lab results: Yes Interpretation: Abnormal lab values (indeterminant Trop, elevated BNP) - RAD Interpretation Narrative RAD Interpretations (Text): 06/19/17 14:39 HISTORY: chest pain COMPARISON: 12/18/2016. FINDINGS: LUNGS: The lungs are well inflated and clear. PLEURA: No significant pleural effusion identified, no pneumothorax apparent. CARDIOVASCULAR: Normal. OSSEOUS STRUCTURES: No significant abnormalities. VISUALIZED UPPER ABDOMEN: Normal. OTHER FINDINGS: There are multiple surgical clips in the right axilla. IMPRESSION: No active pulmonary disease. 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 ST depression to v2-4 (likely due to rate), ABNL EKG; no gross changes compare with old ekg 01/0606/19/17 13:30 Interpreted by ED Physician: Yes Type: 12 lead EKG Comparison: Similar to previous EKG - Medication Orders Current Medication Orders: Sodium Chloride (Sodium Chloride 0.9%) 1,000 mls @ 100 mls/hr IV .Q10H JONAS Last Admin: 06/19/17 13:04 Dose: 100 mls/hr eMAR Start Stop Document 06/19/17 13:04 MS (Rec: 06/19/17 13:07 MS [id number]) Intravenous Solution Start Date 06/19/17 Start Time 13:07 Discontinued Medications Clopidogrel Bisulfate (Plavix) 300 mg PO STAT STA Stop: 06/19/17 12:55 Last Admin: 06/19/17 13:09 Dose: 300 mg Enoxaparin Sodium (Lovenox) 55 mg SC ONCE ONE PRN Reason: Protocol Stop: 06/19/17 12:55 Last Admin: 06/19/17 13:09 Dose: 55 mg Subcutaneous Administrations Document 06/19/17 13:09 MS (Rec: 06/19/17 13:09 MS [id number]) Injection Site MAR Injection Site Left Deltoid Charges for Administration # of Subcutaneous Administrations 1 Metoprolol Tartrate (Lopressor) 5 mg IVP STAT STA Stop: 06/19/17 12:44 Last Admin: 06/19/17 13:01 Dose: 5 mg IVP Administration Document 06/19/17 13:01 MS (Rec: 06/19/17 13:02 MS [id number]) Charges for Administration # of IVP Administrations 1 MAR Pulse and Blood Pressure Document 06/19/17 13:01 MS (Rec: 06/19/17 13:02 MS [id number]) Pulse Pulse Rate (60-90) 103 Blood Pressure Blood Pressure (100/60-150/90) 149/72 Morphine Sulfate (Morphine) 4 mg IVP STAT STA Stop: 06/19/17 12:48 Last Admin: 06/19/17 13:02 Dose: 4 mg IVP Administration Document 06/19/17 13:02 MS (Rec: 06/19/17 13:02 MS [id number]) Charges for Administration # of IVP Administrations 1 Nitroglycerin (Nitro-Bid 2% Oint) 1 ea TOP STAT STA Stop: 06/19/17 12:43 Ondansetron HCl (Zofran Inj) 4 mg IVP STAT STA Stop: 06/19/17 12:48 Last Admin: 06/19/17 13:02 Dose: 4 mg IVP Administration Document 06/19/17 13:02 MS (Rec: 06/19/17 13:02 MS [id number]) Charges for Administration # of IVP Administrations 1 - Scribe Statement The provider has reviewed the documentation as recorded by the Scribroxana Zee All medical record entries made by the Scribe were at my direction and personally dictated by me. I have reviewed the chart and agree that the record accurately reflects my personal performance of the history, physical exam, medical decision making, and the department course for this patient. I have also personally directed, reviewed, and agree with the discharge instructions and disposition. Disposition/Present on Arrival - Present on Arrival Any Indicators Present on Arrival: No History of DVT/PE: No History of Uncontrolled Diabetes: No Urinary Catheter: No History of Decub. Ulcer: No History Surgical Site Infection Following: None - Disposition Have Diagnosis and Disposition been Completed?: Yes Diagnosis: Chest pain with high risk for cardiac etiology, CAD (coronary artery disease) Disposition: HOSPITALIZED Disposition Time: 13:00 Patient Plan: Admission, Telemetry Condition: STABLE
[2017-06-19] MEDS ORDERED: Morphine 5 MG/ML SYRINGE IVP STA (12:47)
[2017-06-19] MEDS ORDERED: Enoxaparin 60 mg Syringe SC ONE (12:54)
[2017-06-19] MEDS: Sodium Chloride 0.9% 1,000 ML IV SCH (13:04)
[2017-06-19 13:12] LABS: URINE APPEARANCE CLEAR (CLEAR); URINE BILIRUBIN NEGATIVE (NEGATIVE); URINE BLOOD NEGATIVE (NEGATIVE); URINE COLOR LIGHT YELLOW (YELLOW); URINE GLUCOSE (UA) NEGATIVE (NEGATIVE); URINE LEUKOCYTE ESTERASE NEGATIVE Leu/uL (NEGATIVE); URINE NITRATE NEGATIVE (NEGATIVE); URINE PROTEIN NEGATIVE mg/dL (<30 mg/dL); URINE UROBILINOGEN 0.2 E.U./dL (<1 E.U./dL)
[2017-06-19 13:25] LABS: BASO # 0.03 K/mm3 (0.0-2.0); BASO % 0.4 % (0.0-3.0); EOS # 0.1 (0.0-0.7); GRAN # 5.93 (1.4-6.5); GRAN % 70.8 % (50.0-68.0); HEMOGLOBIN 13.9 g/dL (12.0-16.0); LYMPH # 1.9 (1.2-3.4); LYMPH % 22.4 % (22.0-35.0); MEAN CELL VOLUME 89.5 fl (80.0-105.0); MEAN CORPUSCULAR HEMOGLOBIN 29.1 pg (25.0-35.0); MEAN CORPUSCULAR HGB CONC 32.6 g/dl (31.0-37.0); MEAN PLATELET VOLUME 11.1 fl (7.0-11.0); MONO # 0.5 (0.1-0.6); MONO % 5.4 % (1.0-6.0); RBC 4.77 10^6/uL (3.5-6.1); RED CELL DISTRIBUTION WIDTH 14.9 % (11.5-14.5); WHITE BLOOD COUNT 8.4 10^3/ul (4.5-11.0)
[2017-06-19 13:29] LABS: INR 0.94 (0.93-1.08); PARTIAL THROMBOPLASTIN TIME 24.6 Seconds (25.1-36.5); PROTHROMBIN TIME 10.7 SECONDS (9.4-12.5)
[2017-06-19 13:52] LABS: ALB/GLOB RATIO 1.2 (1.1-1.8); ALBUMIN 4.7 g/dL (3.0-4.8); CALCIUM 10.4 mg/dL (8.4-10.5); MAGNESIUM 2.3 mg/dL (1.7-2.2); TROPONIN I 0.05 ng/mL
--- NOTE | 2017-06-19 14:28 | RAD ---
HISTORY: chest pain COMPARISON: 12/18/2016. FINDINGS: LUNGS: The lungs are well inflated and clear. PLEURA: No significant pleural effusion identified, no pneumothorax apparent. CARDIOVASCULAR: Normal. OSSEOUS STRUCTURES: No significant abnormalities. VISUALIZED UPPER ABDOMEN: Normal. OTHER FINDINGS: There are multiple surgical clips in the right axilla. IMPRESSION: No active pulmonary disease.
--- NOTE | 2017-06-19 19:09 | CARD ---
APPROVED REPORT EKG Measurement Heart [id number] MA [id number] <Conclusion> Sinus tachycardia Left ventricular hypertrophy with repolarization abnormality Abnormal ECG
--- NOTE | 2017-06-20 05:32 | CP.PCM.PN ---
Subjective - Date & Time of Evaluation Date of Evaluation: 06/20/17 Time of Evaluation: 05:32 - Subjective Subjective: Patient was seen at bedside. Pain from cheek to neck on both side. Pain going towards left shoulder. Yesterday was on the jaw.Had heaviness in the jaw. BP 173/88. Denies chest pain, sob, nausea, sweating , palpitation. Medical record was reviewed. This 77 year old woman was admitted with left sided chest discomfort, bilateral jaw heaviness. Has PMH of CAD, Coronary stent placement x 8, IA,HTN, breast cancer, mastectomy. Objective - Vital Signs/Intake and Output Vital Signs (last 24 hours): Temp Pulse Resp BP Pulse Ox 97.8 F 82 20 138/69 100 06/19/17 17:19 06/19/17 22:00 06/19/17 17:19 06/19/17 17:19 06/19/17 14:22 - Medications Medications: Current Medications Sodium Chloride (Sodium Chloride 0.9%) 1,000 mls @ 100 mls/hr IV .Q10H JONAS Last Admin: 06/19/17 13:04 Dose: 100 mls/hr - Labs Labs: 06/19/17 13:00 06/19/17 13:00 PT 10.7 SECONDS (9.4-12.5) 06/19/17 13:00 INR 0.94 (0.93-1.08) 06/19/17 13:00 APTT 24.6 Seconds (25.1-36.5) L 06/19/17 13:00 Most Recent Lab Values WBC 8.4 10^3/ul (4.5-11.0) D 06/19/17 13:00 RBC 4.77 10^6/uL (3.5-6.1) 06/19/17 13:00 Hgb 13.9 g/dL (12.0-16.0) 06/19/17 13:00 Hct 42.7 % (36.0-48.0) 06/19/17 13:00 MCV 89.5 fl (80.0-105.0) 06/19/17 13:00 MCH 29.1 pg (25.0-35.0) 06/19/17 13:00 MCHC 32.6 g/dl (31.0-37.0) 06/19/17 13:00 RDW 14.9 % (11.5-14.5) H 06/19/17 13:00 Plt Count 130 10^3/uL (120.0-450.0) 06/19/17 13:00 MPV 11.1 fl (7.0-11.0) H 06/19/17 13:00 Gran % 70.8 % (50.0-68.0) H 06/19/17 13:00 Lymph % (Auto) 22.4 % (22.0-35.0) 06/19/17 13:00 [place] % (Auto) 5.4 % (1.0-6.0) 06/19/17 13:00 Eos % (Auto) 1.0 % (1.5-5.0) L 06/19/17 13:00 Baso % (Auto) 0.4 % (0.0-3.0) 06/19/17 13:00 Gran # 5.93 (1.4-6.5) 06/19/17 13:00 Lymph # 1.9 (1.2-3.4) 06/19/17 13:00 [place] # 0.5 (0.1-0.6) 06/19/17 13:00 Eos # 0.1 (0.0-0.7) 06/19/17 13:00 Baso # 0.03 K/mm3 (0.0-2.0) 06/19/17 13:00 PT 10.7 SECONDS (9.4-12.5) 06/19/17 13:00 INR 0.94 (0.93-1.08) 06/19/17 13:00 APTT 24.6 Seconds (25.1-36.5) L 06/19/17 13:00 Sodium 145 mmol/L (132-148) 06/19/17 13:00 Potassium 3.4 mmol/L (3.6-5.0) L 06/19/17 13:00 Chloride 105 mmol/L (98-107) 06/19/17 13:00 Carbon Dioxide 23 mmol/L (21-33) 06/19/17 13:00 Anion Gap 20 (10-20) 06/19/17 13:00 BUN 24 mg/dL (7-21) H 06/19/17 13:00 Creatinine 1.5 mg/dl (0.7-1.2) H 06/19/17 13:00 Est GFR ( Amer) 41 06/19/17 13:00 Est GFR (Non-Af Amer) 33 06/19/17 13:00 Random Glucose 155 mg/dL (70-110) H 06/19/17 13:00 Calcium 10.4 mg/dL (8.4-10.5) 06/19/17 13:00 Magnesium 2.3 mg/dL (1.7-2.2) H 06/19/17 13:00 Total Bilirubin 0.5 mg/dL (0.2-1.3) 06/19/17 13:00 AST 28 U/L (14-36) 06/19/17 13:00 ALT 26 U/L (7-56) 06/19/17 13:00 Alkaline Phosphatase 91 U/L (38-126) 06/19/17 13:00 Lactate Dehydrogenase 556 U/L (333-699) 06/19/17 13:00 Total Creatine Kinase 55 U/L (35-230) 06/19/17 13:00 Troponin I 0.05 ng/mL D 06/19/17 13:00 NT-Pro-B Natriuret Pep 716 pg/mL (0-450) H 06/19/17 13:00 Total Protein 8.5 g/dL (5.8-8.3) H 06/19/17 13:00 Albumin 4.7 g/dL (3.0-4.8) 06/19/17 13:00 Globulin 3.8 gm/dL 06/19/17 13:00 Albumin/Globulin Ratio 1.2 (1.1-1.8) 06/19/17 13:00 Urine Color Light yellow (YELLOW) 06/19/17 13:05 Urine Appearance Clear (CLEAR) 06/19/17 13:05 Urine pH 6.0 (4.7-8.0) 06/19/17 13:05 Ur Specific [place] 1.010 (1.005-1.035) 06/19/17 13:05 Urine Protein Negative mg/dL (<30 mg/dL) 06/19/17 13:05 Urine Glucose (UA) Negative mg/dL (NEGATIVE) 06/19/17 13:05 Urine Ketones Negative mg/dL (NEGATIVE) 06/19/17 13:05 Urine Blood Negative (NEGATIVE) 06/19/17 13:05 Urine Nitrate Negative (NEGATIVE) 06/19/17 13:05 Urine Bilirubin Negative (NEGATIVE) 06/19/17 13:05 Urine Urobilinogen 0.2 E.U./dL (<1 E.U./dL) 06/19/17 13:05 Ur Leukocyte Esterase Negative Micaela/uL (NEGATIVE) 06/19/17 13:05 - Constitutional Appears: Well, No Acute Distress - Head Exam Head Exam: ATRAUMATIC, NORMAL INSPECTION, NORMOCEPHALIC - Eye Exam Eye Exam: Normal appearance - ENT Exam ENT Exam: Normal External Ear Exam - Neck Exam Neck Exam: Normal Inspection - Respiratory Exam Respiratory Exam: Clear to Ausculation Bilateral, NORMAL BREATHING PATTERN. absent: Chest Wall Tenderness, Rales, Rhonchi, Respiratory Distress, Stridor - Cardiovascular Exam Cardiovascular Exam: REGULAR RHYTHM, +S1 (Normal.), +S2 (Normal.). absent: JVD - GI/Abdominal Exam GI & Abdominal Exam: absent: Distended - Rectal Exam Rectal Exam: Deferred - Exam Additional comments: Deferred. - Extremities Exam Extremities Exam: Normal Inspection - Back Exam Back Exam: NORMAL INSPECTION - Neurological Exam Neurological Exam: Alert, Awake, Oriented x3 - Psychiatric Exam Psychiatric exam: Normal Affect, Normal Mood - Skin Skin Exam: Normal Color Assessment and Plan - Assessment and Plan (Free Text) Assessment: Neck pain/Left shoulder pain. CAD. HTN. Hx multiple times coronary stent placement. Hx IA. Hx breast cancer. Hx mastectomy. Hypokalemia. Renal insufficiency. Elevated BNP. Hyperglycemia. Plan: EKG stat.-------->NSR, ST depression V4-V6 not significantly different from previous EKG on record.QT interval is prolonged. Troponin stat. Sublingual NTG 0.4 mg Q5M prn chest pain/jaw pain. After first dose, patient is saying that pain seems to be going away. Protonix 40 mg PO stat. Changed to IV because she is saying that she can not swallow. She is for cardiac catheterization this morning. Potassium replacement. Will inform if pain persists. Nurse will notify Dr. Mei of events at about 7 AM.
[2017-06-20] MEDS ORDERED: Potassium Chloride 20 mEq ER Tab PO STA (05:35)
[2017-06-20] MEDS ORDERED: Pantoprazole 40 mg EC Tab PO STA (05:36)
[2017-06-20] MEDS: Sodium Chloride 0.9% 1,000 ML IV SCH ×3 (06:07→11:54)
[2017-06-20] MEDS ORDERED: Sodium Bicarbonate (8.4%) 50 Meq Syringe IVP ONE ×3 (07:58→08:01)
[2017-06-20 08:11] LABS: TROPONIN I 0.07 ng/mL
[2017-06-20 08:37] LABS: ALB/GLOB RATIO 1.3 (1.1-1.8); ALBUMIN 3.7 g/dL (3.0-4.8); CALCIUM 8.3 mg/dL (8.4-10.5)
[2017-06-20] MEDS ORDERED: Lidocaine 2% Inj (20ml) ONE (09:00)
[2017-06-20] MEDS ORDERED: Iodixanol 320 MG/ML 200 ML BOTTLE IV ONE (09:00)
[2017-06-20] MEDS ORDERED: HEPARIN SODIUM/NS 2,000 ML IV ONE (09:01)
[2017-06-20] MEDS ORDERED: Midazolam 2 MG/2 ML VIAL ONE ×2 (09:47→09:58)
[2017-06-20] MEDS: Insulin Reg-MEDIUM-Coverage SC SCH ×3 (11:30→22:41)
--- NOTE | 2017-06-20 14:00 | CARD ---
APPROVED REPORT EKG Measurement Heart [id number] <Conclusion> Normal sinus rhythm Left ventricular hypertrophy with repolarization abnormality Prolonged QT Abnormal ECG
--- NOTE | 2017-06-20 14:01 | CARD ---
APPROVED REPORT EKG Measurement Heart [id number] TN [id number] <Conclusion> Normal sinus rhythm ST depression, consider subendocardial injury or digitalis effect Prolonged QT Abnormal ECG
--- NOTE | 2017-06-20 14:49 | HP ---
HISTORY OF PRESENT ILLNESS: I saw her in the bed this morning. She is awaiting cardiac cath. She has a big cardiac history. She is also having some left-sided chest pain, left neck pain and jaw pain. She had an evaluation last night by the house doctor. She was also given potassium for low potassium. She is a 77-year-old female who had a history that includes coronary artery disease with 8 stents. She presents to the Emergency Room with left-sided chest pain, discomfort, 6/10, bilateral jaw pain, also weakness, tired, diaphoresis, vomited once, some shortness of breath, also happened again overnight, she had an evaluation by the house doctor and was given medications. She takes aspirin nitroglycerin with some relief. She had pressure and tightness in the chest. History of CAD, stents, hypertension, MIs in the past, breast cancer in 2007. No thin liquid as part of her swallowing issue. She had breast cancer, double mastectomy. She gets some nauseous after PTCA in [facility]. Severe hypertension in the family. SOCIAL HISTORY: No smoking. No alcohol. No drugs. ALLERGIES: PENICILLIN. MEDICATIONS: She takes Ecotrin, aspirin, Lasix, Femara, Cozaar, Toprol, Nitrostat, Crestor, and Apresoline. REVIEW OF SYSTEMS: She has fatigue and night sweats. No acute vision or hearing changes. No sore throat, but there is jaw pain. Some shortness of breath, chest pain left-sided, pressure, tightness, discomfort, vomiting, nauseous, no problems urinating. No skin issues. No numbness or tingling. No anxiety or depression. PHYSICAL EXAMINATION: VITAL SIGNS: Temperature 98.4, 103 pulse, 16 respiratory rate, 149/78 blood pressure, and 98% O2 sat. HEENT: Throat is moist. Head is atraumatic, normocephalic. NECK: Supple. HEART: Little tachy at this time, when I am seeing she is fairly comfortable and well appearing, nontoxic, once the cath done earlier rather than later. Regular rate. Normal S1 and S2. LUNGS: Clear to auscultation. ABDOMEN: Soft and nontender. Positive bowel sounds. No guarding. No rebound. No CVA tenderness. EXTREMITIES: No edema. NEUROLOGIC: GCS is 15. Cranial nerves II through XII grossly intact. Alert and oriented x3. SKIN: Warm and dry. LYMPHATICS: Thyroid midline. No palpable appreciated lymphadenopathy. LABORATORY DATA: She had multiple tests done. She has 145 sodium, potassium 3.4, which is replaced, BUN 24, and creatinine 1.5. renal insufficiency, I will get Renal involved. Blood sugar 155. We will put her on coverage for diabetes. Calcium is 10.4, magnesium is 2.3, AST is 28, ALT is 26, and alkaline phosphatase is 91. Lactate dehydrogenase is 556. Troponin I is 0.05 indeterminate. BNP is 716. Total protein is 8.4. White count is 13.9, hemoglobin 4.2, hematocrit 7, and 130 platelets. INR is 0.94. Urine is clean. She will have consult with Cardiology, we will be checking her labs, schedule for cardiac stent this morning. I think she is planning for another stent, we will watch her very closely. IMPRESSION: Chest pain, coronary artery disease, low potassium, renal insufficiency, and elevated blood sugars. Sree Zamora DO MTDD
--- NOTE | 2017-06-20 16:02 | CP.PCM.CON ---
History of Present Illness - History of Present Illness History of Present Illness: Initial Nephrology Consultation: Assessment: Stable Acute Kidney Injury (N17.9) likely due to pre-renal state possibly due to lasix as improved with IVF Chronic Kidney Disease (N18.3) Stage 3 ? age related decline in renal function CAD s/p stent Plan No acute need for renal replacement therapy at this time. Hypertension control with meds as ordered. Patient not on ACEI/ARB due to ADBI, can resume if renal function stable post cardiac cath Monitor Input/Output, daily weights and renal function with basic metabolic panel continue with IVF supplement electrolytes as needed Check urine analysis, spot protein/creatinine and albumin/creatinine ratio, renal sonogram. Check for 25-OH vitamin D, iPTH Dose meds/antibiotics for reduced GFR. Avoid fleets enema. Avoid nephrotoxins/ NSAIDs Glycemic control Further work up/management as per primary team Thanks for allowing me to participate in care of your patient. Will follow patient with you. Please call if any Qs. d/w team and family Dr William Eisenberg Office: [phone] Chief Complaint; none at this time HPI: Pt is a 77 F with hx of CAD and stents in past presented with complaints of jaw pain and underwent cardiac catgh today. renal consult for ABDI eval she feels better at this time. not aware about kidney issues in past. baseline cr 0.9-1.1 with GFR ~ 50 Denies OTC/herbal meds or NSAIDs No recent iodinated contrast exposure. No obvious episodes of low BP. ROS: Cardiovascular: No chest pain now Pulmonary: No shortness of breath Gastrointestinal: denies abdominal pain No nausea. No vomiting. Genitourinary: No pain while urinating. Denies blood in urine. All other negative Physical Examination: General Appearance: Comfortable, in no acute respiratory distress, co-operative . Vitals reviewed and noted as below Head; Atraumatic, normocephalic ENT: no ulcers no thrush. Tongue is midline. Oropharynx: no rash or ulcers. EYES: Pupils are equal, round and reactive to light accommodation. Eye muscles and extraocular movement intact. Sclera is anicteric. Neck; supple no lymphadenopathy, no thyromegaly or bruit Lungs: Normal respiratory rate/effort. Breath sounds bilateral equal and clear Heart: Normal rate. s1s2 normal. No rub or gallop. Extremities: no edema. No varicose veins Neurological: Patient is alert, awake and oriented to person, place and time. No focal deficit. Strength bilateral appropriate and equal Skin: Warm and dry. Normal turgor. No rash. Palpitation: Normal elasticity for age Abdomen: Abdomen is soft. Bowel sounds +. There is no abdominal tenderness, no guarding/rigidity no organomegaly Psych: normal insight and normal affect/mood MSK: no joint tenderness or swelling. Digits and nails normal, no deformity : kidney or bladder not palpable Labs/imaging reviewed. Past medical history, past surgical history, family history, social history, allergy reviewed and noted as below Family hx: no hx of CKD. Rest non-contributory UA normal Past Patient History - Infectious Disease Hx of Infectious Diseases: None - Tetanus Immunizations Tetanus Immunization: Unknown - Past Social History Smoking Status: Never Smoked - CARDIAC Hx Hypertension: Yes Other/Comment: 8 cardiac stents. Breast CA 2007 - NEUROLOGICAL Hx Paralysis: No - HEENT Other/Comment: no thin liquids - RENAL Hx Chronic Kidney Disease: No - ENDOCRINE/METABOLIC Hx Endocrine Disorders: No - HEMATOLOGICAL/ONCOLOGICAL Hx Blood Disorders: No Hx Cancer: Yes (breast ca) Other/Comment: double mastectomy - INTEGUMENTARY Hx Dermatological Problems: No - MUSCULOSKELETAL/RHEUMATOLOGICAL Hx Falls: No - GASTROINTESTINAL Hx Gastrointestinal Disorders: No - GENITOURINARY/GYNECOLOGICAL Hx Genitourinary Disorders: No - PSYCHIATRIC Hx Psychophysiologic Disorder: No Hx Emotional Abuse: No Hx Physical Abuse: No Hx Substance Use: No - SURGICAL HISTORY Hx Cardiac Catheterization: Yes (8 stents) Hx Coronary Stent: Yes Hx Mastectomy: Yes (double) Other/Comment: cardiac stent - ANESTHESIA Hx Anesthesia: No Hx Anesthesia Reactions: Yes (NAUSEA/VOMITING (AFTER PTCA/[facility])) Hx Malignant Hyperthermia: No Meds Allergies/Adverse Reactions: Allergies Allergy/AdvReac Type Severity Reaction Status Date / Time Penicillins Allergy RASH Verified 10/05/15 12:17 - Medications Medications: Current Medications Aspirin (Ecotrin) 81 mg PO DAILY [facility] Atorvastatin Calcium (Lipitor) 40 mg PO DIN [facility] Clopidogrel Bisulfate (Plavix) 75 mg PO DAILY [facility] Sodium Chloride (Sodium Chloride 0.9%) 1,000 mls @ 100 mls/hr IV .Q10H JONAS Stop: 06/20/17 19:00 Last Admin: 06/20/17 11:54 Dose: Not Given Insulin Human Regular (Humulin R Med) 0 units SC ACHS JONAS PRN Reason: Protocol Last Admin: 06/20/17 11:30 Dose: Not Given Metoprolol Tartrate (Lopressor) 25 mg PO BID [facility] Results - Vital Signs Recent Vital Signs: Last Vital Signs Temp 98.3 F 06/20/17 12:04 Pulse 75 06/20/17 14:40 Resp 16 06/20/17 14:40 BP 150/73 06/20/17 14:40 Pulse Ox 100 06/20/17 07:46 - Labs Result Diagrams: 06/19/17 13:00 06/20/17 07:30 Labs: Laboratory Results - last 24 hr 06/20/17 06/20/17 07:30 13:18 Sodium 143 Potassium 3.6 Chloride 109 H Carbon Dioxide 21 Anion Gap 16 BUN 18 Creatinine 1.1 Est GFR ( Amer) 58 Est GFR (Non-Af Amer) 48 POC Glucose (mg/dL) 129 H Random Glucose 116 H Calcium 8.3 L Total Bilirubin 0.7 AST 22 ALT 23 Alkaline Phosphatase 68 Troponin I 0.07 D Total Protein 6.7 Albumin 3.7 Globulin 3.0 Albumin/Globulin Ratio 1.3
--- NOTE | 2017-06-20 18:05 | CARD ---
APPROVED REPORT EKG Measurement Heart [id number] <Conclusion> Normal sinus rhythm Left ventricular hypertrophy with repolarization abnormality Abnormal ECG
--- NOTE | 2017-06-20 21:40 | CARDCATH ---
PROCEDURE DATE: 06/20/2017 HISTORY OF PRESENT ILLNESS: The patient is a 77-year-old woman who presents with non-STEMI. Because of her ongoing symptoms at rest, cardiac catheterization was recommended. The patient was pretreated with IV bicarb as well as aggressive IV hydration. PROCEDURE IN DETAIL: Left heart catheterization with coronary arteriography and left ventriculogram followed by PTCA and stent of the ostial RCA. The right femoral artery was cannulated with a 6-Angolan sheath. There were no complications. I performed moderate sedation, which included the presence of an independent trained observer that assisted in monitoring the patient's level of consciousness and physiologic status. After administration of Versed and fentanyl, my intra-service time was greater than 30 minutes. Findings on catheterization revealed a left ventricle that contracted normally. Estimated ejection fraction is 70%. The left main artery was unremarkable. The LAD and diagonal vessels revealed intimal irregularities without significant stenosis. The stents were patent. The circumflex artery and obtuse marginal branches revealed intimal irregularities. The stents were patent. The RCA was a dominant vessel and found to have an in-stent restenosis of 99% in the ostium. The stent in the midportion was patent. Aortic root injection revealed a dilated aorta with a stent in the RCA that protruded into the aorta. The patient was started on intravenous Angiomax under fluoroscopic guide, the Waylon right catheter was finally placed in the ostium of the RCA and 0.014 run-through wire was used to cross the critical lesion. A 2.5 followed by a 2.0 balloon was utilized to predilate the lesion. A 3.5 x 12 mm drug-eluting stent was placed and deployed in the ostium of the RCA. This was postdilated with a 4.0, finally by a 4.5 balloon. Repeat coronary arteriography revealed an excellent result with no residual stenosis and JOSE-III flow. Angio-Seal was used to close the femoral artery site. The patient tolerated the procedure well. In summary, the procedure was successful PTCA and stent of an in-stent restenosis of the ostial RCA stent. Cardiac catheterization reveals patent stents in the RCA, LAD and circumflex artery with an in-stent restenosis of the ostium of the RCA. LV function is normal. Supra-aortic valvular injection revealed no aortic insufficiency. Given these findings, the patient will need to remain on aspirin indefinitely and Plavix for at least a year and undergo a strict cardiac risk reduction program. Roshan Mei MD
--- NOTE | 2017-06-20 21:43 | CON ---
DATE: 06/19/2017 HISTORY OF PRESENT ILLNESS: The patient is a 77-year-old woman, who presents with progressive substernal chest pain including angina at rest. She took several nitroglycerins at home. PAST MEDICAL HISTORY: Notable for multivessel PTCA and stent in the past. Her last procedure in November 2016 revealed patent stents. She suffers from hypertension and hypercholesterolemia. SOCIAL HISTORY: The patient does not smoke. REVIEW OF SYSTEMS: A 14-point review of systems was reviewed in detail. Positive angina at rest. Negative dyspnea. Negative edema in lower extremities. No history of GI bleeding. No pedal edema. PHYSICAL EXAMINATION: VITAL SIGNS: Blood pressure is 133/76, heart rate is in the 70s. NECK: Negative JVD. LUNGS: Without rales. HEART: S1, S2. EXTREMITIES: Without edema. DIAGNOSTIC DATA: EKG shows diffuse ST depressions. Troponin was 0.05, BUN and creatinine is 24 and 1.5. IMPRESSION: 1. Unstable angina. 2. [id number] myocardial infarction. 3. Coronary artery disease. 4. Mild renal insufficiency. 5. Hypertension. Given these findings, we will load the patient with Plavix. Beta-blockers were started. We will begin IV hydration as well as bicarb. We will schedule the case for cardiac catheterization in the morning. Roshan Mei MD
[2017-06-21 06:52] LABS: BASO # 0.01 K/mm3 (0.0-2.0); BASO % 0.2 % (0.0-3.0); EOS # 0.3 (0.0-0.7); GRAN # 3.72 (1.4-6.5); GRAN % 61.8 % (50.0-68.0); HEMOGLOBIN 10.6 g/dL (12.0-16.0); LYMPH # 1.5 (1.2-3.4); LYMPH % 25.4 % (22.0-35.0); MEAN CELL VOLUME 90.2 fl (80.0-105.0); MEAN CORPUSCULAR HEMOGLOBIN 28.8 pg (25.0-35.0); MEAN CORPUSCULAR HGB CONC 31.9 g/dl (31.0-37.0); MEAN PLATELET VOLUME 11.2 fl (7.0-11.0); MONO # 0.5 (0.1-0.6); MONO % 7.6 % (1.0-6.0); RBC 3.68 10^6/uL (3.5-6.1); RED CELL DISTRIBUTION WIDTH 14.8 % (11.5-14.5)
[2017-06-21] MEDS: Insulin Reg-MEDIUM-Coverage SC SCH (07:30)
[2017-06-21 07:33] LABS: ALB/GLOB RATIO 1.1 (1.1-1.8); ALBUMIN 3.5 g/dL (3.0-4.8); CALCIUM 8.3 mg/dL (8.4-10.5)
[2017-06-21 09:49] VITALS: O2SAT 96
[2017-06-21 11:38] VITALS: RESP 16; TEMP 98.1
[2017-06-21 11:43] VITALS: BP 154/68; PULSE 80
--- NOTE | 2017-06-21 11:44 | US ---
PROCEDURE: Ultrasound of the Kidneys HISTORY: ABDI COMPARISON: None available. TECHNIQUE: Sonogram of the kidneys. FINDINGS: RIGHT KIDNEY: Measures: 8.0 cm. Normal in size, contour and echogenicity. No stone, solid mass lesion or hydronephrosis visualized. LEFT KIDNEY: Measures: 9 point a cm. Normal in size, contour and echogenicity. No stone, solid mass lesion or hydronephrosis visualized. OTHER FINDINGS: None. IMPRESSION: Small right kidney. Otherwise unremarkable examination.
--- NOTE | 2017-06-21 15:29 | DS ---
HISTORY OF PRESENT ILLNESS: She is resting comfortably in bed. She slept well. She had cardiac cath and stent placement here with Dr. Mei. She is on Ecotrin, insulin, Lipitor, Lopressor and Plavix. She is comfortable. No chest pain, shortness breath or abdominal pain. She is hungry. PHYSICAL EXAMINATION: VITAL SIGNS: She has 98.9 temperature, 79 pulse, 148/69 blood pressure, 18 respiratory rate and 99% O2 sat on room air. HEENT: Head is atraumatic, normocephalic. HEART: Regular rate. LUNGS: Clear to auscultation. ABDOMEN: Soft. EXTREMITIES: No edema. LABORATORY DATA: She has a 143 sodium, potassium 3.6, BUN 11, creatinine 1.1, GFR is 48, sugar is 100, calcium is 8.3, total bili is 0.8, AST is 26, ALT is 22, alk phos of 52, troponin 0.07 and total protein was 6.6. Urine was clean. INR is 0.94. She has 6 white count, 10.6 hemoglobin, 32.2 hematocrit with 75 platelets. PLAN: My plan would be discharge her if it is okay with Dr. Mei. She was here for numerous reasons. Chest pain, CAD, low potassium, renal insufficiency, diabetes, possible NSTEMI as per Cardiology. Sree Zamora DO
--- NOTE | 2017-06-21 15:44 | PN ---
DATE: 06/21/2017 CARDIOLOGY FOLLOWUP SUBJECTIVE: The patient is chest pain free. PHYSICAL EXAMINATION VITAL SIGNS: Blood pressure is 154/68, heart rates in the 80s. NECK: Negative JVD. LUNGS: Without rales. HEART: S1 and S2. EXTREMITIES: Without edema. LABORATORY DATA: Hemoglobin is 10.6. Chemistries unremarkable. IMPRESSION AND PLAN: 1. Stable post percutaneous transluminal coronary angioplasty and stent. 2. Coronary artery disease. 3. Hypercholesterolemia. 4. Hypertension. Given these findings, the patient is stable for discharge. Followup and instructions have been given to the patient in detail. Roshan Mei MD
== END 2017-06-21 13:59 | disposition home or self-care (01) | DRG 247 ==
LOC: ED 12:22 → ERH 12:59 → 2RSO 16:05
PROVIDERS: ADMIT Family Medicine; ATTEND Family Medicine
PROC: 027034Z Dilation of Coronary Artery, One Artery with Drug-eluting Intraluminal Device, Percutaneous Approach (ICD-10-PCS; principal; 2017-06-20)
PROC: 4A023N7 Measurement of Cardiac Sampling and Pressure, Left Heart, Percutaneous Approach (ICD-10-PCS; 2017-06-20)
PROC: B2111ZZ Fluoroscopy of Multiple Coronary Arteries using Low Osmolar Contrast (ICD-10-PCS; 2017-06-20)
PROC: B2151ZZ Fluoroscopy of Left Heart using Low Osmolar Contrast (ICD-10-PCS; 2017-06-20)
DX: I21.4 Non-ST elevation (NSTEMI) myocardial infarction (principal); T82.855A Stenosis of coronary artery stent, initial encounter; E78.00 Pure hypercholesterolemia, unspecified; I10 Essential (primary) hypertension; I25.110 Atherosclerotic heart disease of native coronary artery with unstable angina pectoris; I77.819 Aortic ectasia, unspecified site; Y83.1 Surgical operation with implant of artificial internal device as the cause of abnormal reaction of the patient, or of later complication, without mention of misadventure at the time of the procedure; Z85.3 Personal history of malignant neoplasm of breast; N28.9 Disorder of kidney and ureter, unspecified; Z79.82 Long term (current) use of aspirin; I25.2 Old myocardial infarction; Z82.49 Family history of ischemic heart disease and other diseases of the circulatory system; E87.6 Hypokalemia; Z88.0 Allergy status to penicillin; R73.9 Hyperglycemia, unspecified; Z90.10 Acquired absence of unspecified breast and nipple

== ENCOUNTER 2018-08-04 15:28 | Inpatient (IN) | payer MEDICARE ==
[2018-08-04 15:32] VITALS: BMI 25.2
--- NOTE | 2018-08-04 15:54 | ED PDOC ---
Arrival/HPI - General Chief Complaint: Chest Pain Time Seen by Provider: 08/04/18 15:32 Historian: Patient, Family (daughter) - History of Present Illness Narrative History of Present Illness (Text): 08/04/18 15:52 A 78 year old female, whose past medical history includes CAD, 9 stents, double mastectomy for BRCA - on maintenance pills, hypertension, and hyperlipidemia, presents to the emergency department complaining of chest pain for the past 3 days. Patient reports chest pain radiates to her left arm, stating she feels numbness to heaviness to her left arm, head, chest, and back. Patient states back heaviness feels like she is carrying a backpack. Patient also notes neck pain, acid reflux, and shortness of breath upon ambulation. Patient states reports symptoms are persistent and she had experienced similar symptoms of acid reflux and heaviness, to which she took Tums, last year that led to her receiving her 9th stent. Patient and patient's family reports patient is currently on Plavix, Aspirin, and nitro. Patient notes she has taken all 3 medications today and is consistent with her prescribed medication course. Patient denies any fever, chills, palpitations, diaphoresis, leg swelling, nausea, vomiting, abdominal pain, blurry vision, or any other complaints. PMD: Atilio Dailey Manager Utilization: Dr. Styles Time/Duration: < week (3 days) Symptom Onset: Gradual Symptom Course: Unchanged Activities at Onset: Light Context: Home Past Medical History - Provider Review Nursing Documentation Reviewed: Yes - Past History Past History: No Previous - Infectious Disease Hx of Infectious Diseases: None - Tetanus Immunization Tetanus Immunization: Unknown - Reproductive Menopause: Yes - Past Medical History Past Medical History: No Previous - Cardiac Hx Hypertension: Yes - Neurological Hx Paralysis: No - HEENT Other/Comment: no thin liquids - Renal Hx Renal Disorder: No - Endocrine/Metabolic Hx Endocrine Disorders: No - Hematological/Oncological Hx Blood Disorders: No Hx Cancer: Yes (breast ca) Other/Comment: double mastectomy - Integumentary Hx Dermatological Disorder: No - Musculoskeletal/Rheumatological Hx Falls: No - Gastrointestinal Hx Gastrointestinal Disorders: No - Genitourinary/Gynecological Hx Genitourinary Disorders: No - Psychiatric Hx Psychophysiologic Disorder: No Hx Emotional Abuse: No Hx Physical Abuse: No Hx Substance Use: No - Past Surgical History Past Surgical History: Non-Contributing - Surgical History Hx Cardiac Catheterization: Yes (8 stents) Hx Coronary Stent: Yes Hx Mastectomy: Yes (double) Other/Comment: cardiac stent - Anesthesia Hx Anesthesia: No Hx Anesthesia Reactions: Yes (NAUSEA/VOMITING (AFTER [facility] [place] Hx Malignant Hyperthermia: No - Suicidal Assessment Feels Threatened In Home Enviroment: No Family/Social History - Physician Review Nursing Documentation Reviewed: Yes Family/Social History: No Known Family HX Smoking Status: Never Smoked Hx Alcohol Use: No Hx Substance Use: No Hx Substance Use Treatment: No Allergies/Home Meds Allergies/Adverse Reactions: Allergies Penicillins Allergy (Verified 10/05/15 12:17) RASH Home Medications: Home Meds Medication Instructions Recorded Confirmed Aspirin [Ecotrin] 81 mg PO DAILY 12/18/16 08/04/18 Losartan [Cozaar] 50 mg PO DAILY 06/19/17 08/04/18 Metoprolol Succinate XL [Toprol XL] 1 tab PO DAILY 06/19/17 08/04/18 Rosuvastatin Calcium [Crestor] 20 mg PO DAILY 06/19/17 08/04/18 Clopidogrel [Plavix] 75 mg PO DAILY 11/15/17 08/04/18 Review of Systems - Physician Review All systems were reviewed & negative as marked: Yes - Review of Systems Constitutional: absent: Fevers, Other (chills) Eyes: absent: Other (blurry vision) Respiratory: SOB (shortness of breath upon ambulation) Cardiovascular: Chest Pain. absent: Palpitations Gastrointestinal: Other (acid reflux). absent: Abdominal Pain, Nausea, Vomiting Musculoskeletal: Neck Pain (left sided neck pain) Neurological: Other (numbness and heaviness to left arm, head, chest, and back. ) Physical Exam - Physical Exam Narrative Physical Exam (Text): 08/04/18 15:52 Gen: VS reviewed, alert, well developed, well nourished, nontoxic, mild distress. ENT: normal pharynx. Eye: Left eye injected in inner corner. Neck: Positive sturling test on left side, no JVD, supple, no adenopathy. CV: Systolic murmur, no rubs, no murmur, no gallops, S1, S2, pulses equal and strong. Pulm: no distress, clear to auscultation, no wheeze, no rhonchi, breath sounds equal, no rales. Abd: soft, nontender, no guarding, no rebound, no rigidity, normal bowel sounds. Ext: no edema. Skin: good color, no rash, no cyanosis. Psych: responds appropriately to questions, normal affect. Neuro: oriented x 3, CN2-12 intact grossly, motor intact, sensation intact. Vital Signs Reviewed: Yes Vital Signs Temp Pulse Resp BP Pulse Ox 08/04/18 15:45 97.9 F 68 18 161/77 H 100 Temperature: Afebrile Blood Pressure: Hypertensive Pulse: Regular Respiratory Rate: Normal Mental Status: Positive for: Alert and Oriented X 3 Medical Decision Making ED Course and Treatment: 08/04/18 15:55 Impression: 78 year old female presenting to the emergency room complaining of chest pain. Plan: -- EKG -- Labs -- CBC -- COAGs -- Chest X-ray -- Reassess and disposition Prior Visits: Notes and results from previous visits were reviewed. Progress Notes: 08/04/18 16:41 patient seen for intermittent chest heaviness, exertional, high risk for ACS, chest pain free now, no significant clinical suspicion for aortic dissection or PE.consult cardiology to dr. styles as he is already aware of the patient's status in the emergency department . - EKG Interpretation EKG Interpretation (Text): 08/04/18 16:37 [id number]: nsr at 74 bpm, nml qrs, lvh, Interpreted by ED Physician: Yes - Scribe Statement The provider has reviewed the documentation as recorded by the Marnieibroxana Inman All medical record entries made by the Scribe were at my direction and personally dictated by me. I have reviewed the chart and agree that the record accurately reflects my personal performance of the history, physical exam, medical decision making, and the department course for this patient. I have also personally directed, reviewed, and agree with the discharge instructions and disposition. Disposition/Present on Arrival - Present on Arrival Any Indicators Present on Arrival: No History of DVT/PE: No History of Uncontrolled Diabetes: No Urinary Catheter: No History of Decub. Ulcer: No History Surgical Site Infection Following: None - Disposition Have Diagnosis and Disposition been Completed?: Yes Diagnosis: Angina of effort Disposition: HOSPITALIZED Disposition Time: 16:45 Patient Plan: Admission Condition: STABLE Discharge Instructions (ExitCare): Chest Pain (ED) Referrals: Atilio Arredondo MD [Primary Care Provider] - Follow up with primary Forms: [employer] ([place])
[2018-08-04 16:33] LABS: ALB/GLOB RATIO 1.2 (1.1-1.8); ALBUMIN 4.3 g/dL (3.0-4.8); AST/SGOT 29 U/L (14-36); BASO # 0.01 K/mm3 (0.0-2.0); BASO % 0.1 % (0.0-3.0); BLOOD UREA NITROGEN 25 mg/dL (7-21); CALCIUM 9.2 mg/dL (8.4-10.5); EOS # 0.2 (0.0-0.7); EOS % 2.4 % (1.5-5.0); GFR NON-AFRICAN AMERICAN 43; HEMOGLOBIN 12.4 g/dL (12.0-16.0); LYMPH # 1.9 (1.2-3.4); LYMPH % 27.6 % (22.0-35.0); MEAN CELL VOLUME 89.8 fl (80.0-105.0); MEAN CORPUSCULAR HEMOGLOBIN 29.3 pg (25.0-35.0); MEAN CORPUSCULAR HGB CONC 32.6 g/dl (31.0-37.0); MEAN PLATELET VOLUME 10.5 fl (7.0-11.0); MONO # 0.3 (0.1-0.6); MONO % 3.9 % (1.0-6.0); RBC 4.23 10^6/uL (3.5-6.1); RED CELL DISTRIBUTION WIDTH 13.8 % (11.5-14.5); WHITE BLOOD COUNT 6.7 10^3/uL (4.5-11.0)
[2018-08-04 16:34] LABS: ALT/SGPT < 6 U/L (7-56)
[2018-08-04 16:36] LABS: INR 0.99; PARTIAL THROMBOPLASTIN TIME 31.5 Seconds (26.9-38.3)
[2018-08-04 16:44] LABS: TROPONIN I < 0.01 ng/mL
--- NOTE | 2018-08-04 17:25 | RAD ---
Date of service: 08/04/2018 HISTORY: chest pain COMPARISON: 06/19/2017. FINDINGS: LUNGS: No active pulmonary disease. PLEURA: No significant pleural effusion identified, no pneumothorax apparent. CARDIOVASCULAR: Atherosclerotic calcifications identified primarily aortic arch. No radiographic findings to suggest acute or significant cardiovascular disease. OSSEOUS STRUCTURES: No significant abnormalities. VISUALIZED UPPER ABDOMEN: Normal. OTHER FINDINGS: None. IMPRESSION: No active disease. No significant interval change compared to the prior examination(s).
--- NOTE | 2018-08-04 18:44 | CARD ---
APPROVED REPORT Date of service: 08/04/2018 EKG Measurement Heart [id number] <Conclusion> Normal sinus rhythm Minimal voltage criteria for LVH, may be normal variant ST abnormality, possible digitalis effect Prolonged QT Abnormal ECG
--- NOTE | 2018-08-04 19:03 | CP.PCM.HP ---
<Dandre Wellington - Last Filed: 08/04/18 20:08> History of Present Illness - History of Present Illness History of Present Illness: Hospital H&P CC: Chest Pressure This is an 78 year old female with PMH of CAD s/p 9 stents last one in 2017, GERD and double masectomy in 2007 presenting to the hospital for 3 day history of chest pressure. Patient states symptoms occur at rest, occur intemittantly and is associated with SOB, dizziness and tingling in the left arm. Patient tried nitroglycerin which initially helped with chest pressure but symptoms resume shortly after. Patient states she believed chest pressure was related to heartburn but decided to come to ER due to history of heart disease. She denies chest pain, nausea, vomiting, diarrhea, constipation, urinary complaints, blurry vision, numbness and swelling. 12 point ROS noted here, otherwise unremarkable. PMH: of CAD s/p 9 stents last one in 2017, GERD License Clerk: Dr. Mei SH: denies drinking, smoking and drug use Sx: double masectomy in 2007 FH: father from [place] at age 64, mother had CAD, breast cancer, siblings have breast cancer Meds: losartan, zantec, ASA, plavic, metoprolol, crestor All: pcn Present on Admission - Present on Admission Any Indicators Present on Admission: No Past Patient History - Infectious Disease Hx of Infectious Diseases: None - Tetanus Immunizations Tetanus Immunization: Unknown - Past Social History Smoking Status: Never Smoked - CARDIAC Hx Hypertension: Yes - NEUROLOGICAL Hx Paralysis: No - HEENT Other/Comment: no thin liquids - RENAL Hx Chronic Kidney Disease: No - ENDOCRINE/METABOLIC Hx Endocrine Disorders: No - HEMATOLOGICAL/ONCOLOGICAL Hx Blood Disorders: No Hx Cancer: Yes (breast ca) Other/Comment: double mastectomy - INTEGUMENTARY Hx Dermatological Problems: No - MUSCULOSKELETAL/RHEUMATOLOGICAL Hx Falls: No - GASTROINTESTINAL Hx Gastrointestinal Disorders: No - GENITOURINARY/GYNECOLOGICAL Hx Genitourinary Disorders: No - PSYCHIATRIC Hx Psychophysiologic Disorder: No Hx Emotional Abuse: No Hx Physical Abuse: No Hx Substance Use: No - SURGICAL HISTORY Hx Cardiac Catheterization: Yes (8 stents) Hx Coronary Stent: Yes Hx Mastectomy: Yes (double) Other/Comment: cardiac stent - ANESTHESIA Hx Anesthesia: No Hx Anesthesia Reactions: Yes (NAUSEA/VOMITING (AFTER [facility])) Hx Malignant Hyperthermia: No Meds Allergies/Adverse Reactions: Allergies Allergy/AdvReac Type Severity Reaction Status Date / Time Penicillins Allergy RASH Verified 08/04/18 18:25 Physical Exam - Constitutional Appears: No Acute Distress - Head Exam Head Exam: ATRAUMATIC, NORMAL INSPECTION - Eye Exam Eye Exam: EOMI Pupil Exam: PERRL - ENT Exam ENT Exam: Mucous Membranes Moist - Respiratory Exam Respiratory Exam: Clear to Auscultation Bilateral, NORMAL BREATHING PATTERN. absent: Wheezes, Respiratory Distress - Cardiovascular Exam Cardiovascular Exam: +S1, +S2. absent: Tachycardia - GI/Abdominal Exam GI & Abdominal Exam: Normal Bowel Sounds, Soft. absent: Firm, Guarding, Tenderness - Extremities Exam Extremities exam: Positive for: normal inspection, pedal pulses present. Negative for: calf tenderness - Back Exam Back exam: NORMAL INSPECTION - Neurological Exam Neurological exam: Alert, CN II-XII Intact, Oriented x3 - Skin Skin Exam: Normal Color, Warm Results - Vital Signs Recent Vital Signs: Last Vital Signs Temp 97.9 F 08/04/18 15:45 Pulse 55 L 08/04/18 17:53 Resp 18 08/04/18 17:53 BP 133/56 L 08/04/18 17:53 Pulse Ox 99 08/04/18 17:53 - Labs Result Diagrams: 08/04/18 16:10 08/04/18 16:10 Labs: Laboratory Results - last 24 hr 08/04/18 08/04/18 08/04/18 16:10 16:10 16:10 WBC 6.7 RBC 4.23 Hgb 12.4 Hct 38.0 MCV 89.8 MCH 29.3 MCHC 32.6 RDW 13.8 Plt Count 143 MPV 10.5 Neut % (Auto) 66.0 Lymph % (Auto) 27.6 [place] % (Auto) 3.9 Eos % (Auto) 2.4 Baso % (Auto) 0.1 Lymph # (Auto) 1.9 [place] # (Auto) 0.3 Eos # (Auto) 0.2 Baso # (Auto) 0.01 Absolute Neuts (auto) 4.45 PT 11.0 INR 0.99 APTT 31.5 Sodium 142 Potassium 3.8 Chloride 108 H Carbon Dioxide 24 Anion Gap 14 BUN 25 H Creatinine 1.2 Est GFR ( Amer) 52 Est GFR (Non-Af Amer) 43 Random Glucose 200 H Calcium 9.2 Magnesium 2.4 H Total Bilirubin 0.3 AST 29 ALT < 6 L Alkaline Phosphatase 75 Troponin I < 0.01 D Total Protein 7.7 Albumin 4.3 Globulin 3.4 Albumin/Globulin Ratio 1.2 Assessment & Plan - Assessment and Plan (Free Text) Assessment: This is an 78 year old female with PMH of CAD s/p 9 stents last one in 2017, GERD and double mastectomy in 2007 presenting to the hospital for 3 day history of chest pressure. Plan ACS rule out -hx of CAD s/p 9 stents -cardiology on consult, Dr. Mei -trend troponins, EKG in AM -TSH, lipid panel, pending -continue ASA, plavix -continue lipitor 20mg Dizziness -2/2 CAD vs vertebral insufficiency -carotid dopplers pending -CT head pending Hx of HTN -continue metoprolol 50mg Hx of GERD -continue protonix 40mg PPX/Diet -protonix/SCD -HHD Patient seen and case discussed with attending, Wendy Conde <Bri Stern R - Last Filed: 08/05/18 10:31> Results - Vital Signs Recent Vital Signs: Last Vital Signs Temp 97.7 F 08/05/18 05:54 Pulse 63 08/05/18 05:54 Resp 19 08/05/18 05:54 BP 141/62 08/05/18 05:54 Pulse Ox 97 08/05/18 05:54 - Labs Result Diagrams: 08/05/18 06:00 08/05/18 06:00 Labs: Laboratory Results - last 24 hr 08/04/18 08/04/18 08/04/18 16:10 16:10 16:10 WBC 6.7 RBC 4.23 Hgb 12.4 Hct 38.0 MCV 89.8 MCH 29.3 MCHC 32.6 RDW 13.8 Plt Count 143 MPV 10.5 Neut % (Auto) 66.0 Lymph % (Auto) 27.6 [place] % (Auto) 3.9 Eos % (Auto) 2.4 Baso % (Auto) 0.1 Lymph # (Auto) 1.9 [place] # (Auto) 0.3 Eos # (Auto) 0.2 Baso # (Auto) 0.01 Absolute Neuts (auto) 4.45 PT 11.0 INR 0.99 APTT 31.5 Sodium 142 Potassium 3.8 Chloride 108 H Carbon Dioxide 24 Anion Gap 14 BUN 25 H Creatinine 1.2 Est GFR ( Amer) 52 Est GFR (Non-Af Amer) 43 Random Glucose 200 H Calcium 9.2 Magnesium 2.4 H Total Bilirubin 0.3 AST 29 ALT < 6 L Alkaline Phosphatase 75 Troponin I < 0.01 D Total Protein 7.7 Albumin 4.3 Globulin 3.4 Albumin/Globulin Ratio 1.2 Triglycerides Cholesterol LDL Cholesterol Direct HDL Cholesterol Free T4 TSH 3rd Generation 08/05/18 08/05/18 08/05/18 00:25 06:00 06:00 WBC RBC Hgb Hct MCV MCH MCHC RDW Plt Count MPV Neut % (Auto) Lymph % (Auto) [place] % (Auto) Eos % (Auto) Baso % (Auto) Lymph # (Auto) [place] # (Auto) Eos # (Auto) Baso # (Auto) Absolute Neuts (auto) PT INR APTT Sodium 141 Potassium 4.4 Chloride 110 H Carbon Dioxide 23 Anion Gap 12 BUN 23 H Creatinine 1.0 Est GFR ( Amer) > 60 Est GFR (Non-Af Amer) 53 Random Glucose 166 H Calcium 8.8 Magnesium Total Bilirubin 0.5 AST 27 ALT < 6 L Alkaline Phosphatase 69 Troponin I < 0.01 < 0.01 Total Protein 7.4 Albumin 4.1 Globulin 3.3 Albumin/Globulin Ratio 1.2 Triglycerides 126 Cholesterol 137 LDL Cholesterol Direct 67 HDL Cholesterol 40 Free T4 TSH 3rd Generation 4.74 H 08/05/18 08/05/18 08/05/18 06:00 06:00 08:41 WBC 5.7 RBC 4.20 Hgb 12.1 Hct 37.2 MCV 88.6 MCH 28.8 MCHC 32.5 RDW 13.8 Plt Count 139 MPV 10.5 Neut % (Auto) 62.0 Lymph % (Auto) 29.7 [place] % (Auto) 4.1 Eos % (Auto) 3.7 Baso % (Auto) 0.5 Lymph # (Auto) 1.7 [place] # (Auto) 0.2 Eos # (Auto) 0.2 Baso # (Auto) 0.03 Absolute Neuts (auto) 3.50 PT INR APTT Sodium Potassium Chloride Carbon Dioxide Anion Gap BUN Creatinine Est GFR ( Amer) Est GFR (Non-Af Amer) Random Glucose Calcium Magnesium 2.4 H Total Bilirubin AST ALT Alkaline Phosphatase Troponin I Total Protein Albumin Globulin Albumin/Globulin Ratio Triglycerides Cholesterol LDL Cholesterol Direct HDL Cholesterol Free T4 1.08 TSH 3rd Generation Attending/Attestation - Attestation I have personally seen and examined this patient.: Yes I have fully participated in the care of the patient.: Yes I have reviewed all pertinent clinical information: Yes Notes (Text): Patient seen and examined by me with resident at on 08/04/18 at 4:50PM in the e mergency room. Case including HPI, physical exam, and assessment and plan discussed with resident. Agree with above with following additions/corrections. Patient is an 78-year-old female with past medical history significant for coronary artery disease status post 9 stents, hypertension, hyperchole sterolemia, and acid reflux that presented to the emergency room with chest pressure and pain. Patient's daughter at bedside. History taken from both patient's daughter and patient with patient's permission. Patient states she has been having chest pain and chest pressure on and off for approximately 3 days. Patient states she was having chest pressure again this morning. She took nitro around 11AM. The pain went away but came back again. Patient states the pressure and pain is across her entire chest. She states it is also in her back and feels like "I am wearing a back pack." Patient also with some associated shortness of breath and dizziness. Patient was also have left sided neck pain radiating up to her head. She states her left eye is also "blood shot" today. Patient states she also has some "tingling" in her bilateral arms. Patient states she has also been having "acid reflux" symptoms the past few days and has been taking Zantac as needed. Patient denies any nausea or vomiting. No abdominal pain. No change in vision. No lightheadedness. No fevers or chills. No palpitations. No dysuria. No diarrhea or constipation. 12 point review of systems reviewed by me. Please see above HPI. All other systems negative. Physical exam: General: Awake and alert, sitting up in bed in no acute distress. HEENT: Normocephalic, atraumatic, Extraocular muscles intact, pupils equal and reactive, no scleral icterus. Positive left conjunctival injection. Oropharynx is pink and moist. Neck is supple. Hearing grossly intact. Ears and nose externally unremarkable. Cardiovascular: Normal rhythm. Normal S1 and S2. Positive systolic murmur. No rubs or gallops appreciated. Pulmonary: Normal respiratory effort. No rhonchi, rales, or wheezing appreciated. Gastrointestinal: Soft. Nontender. Nondistended. Positive bowel sounds all 4 quadrants. No guarding. Musculoskeletal: Moves all extremities. No calf tenderness. No edema appreciated. Pulses left cervical paraspinal muscle tenderness and ropiness. Central nervous system: AAO x 3, CN 2-12 grossly intact. 5 out of 5 muscle strength all extremities. Dermatologic: Skin warm and dry. Assessment and plan: Patient is an 78-year-old female with past medical history significant for coronary artery disease status post 9 stents, hypertension, hypercholesterolemia, and acid reflux that presented to the emergency room with chest pressure and pain. 1. Chest pain/pressure in a patient with CAD s/p 9 stents. Cardiology consulted, follow up recommendations. First troponin witin normal limits. Follow up serial troponins. Continue ASA, Plavix, and Metoprolol. 2. Headache. Dizziness. Follow up head CT. Follow up carotid dopplers. 3. Acid reflux. Placed on protonix. 4. Hypertension. Continue home metoprolol. 5. Hypercholesterolemia. Patient on Crestor at home. Placed on Lipitor 80mg here. 6. GI/DVT prophylaxis. Protonix/SCDs 7. Patient is a full code. Case discussed in detail with patient and patient's daughter at bedside regarding current diagnosis and treatment plan. All questions answered.
[2018-08-04] MEDS ORDERED: Influenza Vaccine 60 mcg/0.5 mL SYR (4YR UP) IM ONE (22:24)
[2018-08-04] MEDS ORDERED: Pneumococcal 23-Valent Vaccine IM ONE (22:24)
[2018-08-04] MEDS ORDERED: Metoclopramide 5 mg/5 ml Oral Sol PO ONE (22:41)
--- NOTE | 2018-08-05 05:10 | CON ---
DATE: 08/04/2018 CARDIOLOGY CONSULTATION REASON FOR CONSULTATION: Chest pain. HISTORY OF PRESENT ILLNESS: The patient is an 78-year-old [place] female who has a history of coronary artery disease with history of coronary stenting in the past. The most recent cardiac catheterization was in May of last year, which revealed patent stents in RCA and LAD and circumflex artery with in-stent stenosis in the ostium of right coronary artery. The patient underwent successful PTCA and stent to that in-stent stenosis of the ostial right coronary artery at that time. The patient has been compliant with her medications, which include aspirin and Plavix. The patient stated that she has been experiencing chest pain on and off for the past three days, which is retrosternal radiating to the jaw and the neck. SOCIAL HISTORY: The patient is a nonsmoker. She is . Lives with her . MEDICATIONS: Aspirin 81 mg once daily, Lipitor 80 mg once a day, Plavix 75 mg once a day, Toprol-XL 50 mg once a day. REVIEW OF SYSTEMS: No fever or chills. No nausea or vomiting. No dizziness or syncope. PHYSICAL EXAMINATION GENERAL: The patient is an elderly female who does not appear to be in acute distress. VITAL SIGNS: Blood pressure 165/65, heart rate 60, temperature 98.2, respirations 14. HEENT: Normocephalic. CHEST: Clear. HEART: S1 and S2 regular. ABDOMEN: Soft. EXTREMITIES: No edema. LABORATORY DATA: Pacemaker ____. CBC is entirely within normal limits. PT, PTT and INR are within normal limits. SMA-7: Sodium 142, potassium 3.8, chloride 108, CO2 of 24, glucose 200, BUN 25, creatinine 1.2. One set of troponin is negative. EKG revealed sinus rhythm at a rate of 74, LVH by voltage and nonspecific ST-segment changes. Head CT scan was performed, the report is still pending. Chest x-ray is unremarkable. ASSESSMENT: 1. Chest pain, rule out myocardial infarction. 2. History of multiple coronary artery stenting, the most recent one was in May of last year when she underwent an in-stent stenosis of the ostial right coronary artery. 3. Hypertension and hyperlipidemia. RECOMMENDATIONS: Continue current aspirin 81 mg once daily, Lipitor at 80 mg daily, Plavix 75 mg once a day and Toprol-XL 50 mg daily. Start Lovenox 40 mg subcutaneously daily. I will monitor daily EKGs and serial cardiac enzymes. Job Phelps MD
[2018-08-05] MEDS: Pantoprazole 40 mg EC Tab PO SCH (06:28)
[2018-08-05 07:06] LABS: BASO # 0.03 K/mm3 (0.0-2.0); BASO % 0.5 % (0.0-3.0); EOS # 0.2 (0.0-0.7); EOS % 3.7 % (1.5-5.0); HEMOGLOBIN 12.1 g/dL (12.0-16.0); LYMPH # 1.7 (1.2-3.4); LYMPH % 29.7 % (22.0-35.0); MEAN CELL VOLUME 88.6 fl (80.0-105.0); MEAN CORPUSCULAR HEMOGLOBIN 28.8 pg (25.0-35.0); MEAN CORPUSCULAR HGB CONC 32.5 g/dl (31.0-37.0); MEAN PLATELET VOLUME 10.5 fl (7.0-11.0); MONO # 0.2 (0.1-0.6); MONO % 4.1 % (1.0-6.0); RBC 4.2 10^6/uL (3.5-6.1); RED CELL DISTRIBUTION WIDTH 13.8 % (11.5-14.5); WHITE BLOOD COUNT 5.7 10^3/uL (4.5-11.0)
[2018-08-05 07:23] LABS: ALB/GLOB RATIO 1.2 (1.1-1.8); ALBUMIN 4.1 g/dL (3.0-4.8); ALT/SGPT < 6 U/L (7-56); AST/SGOT 27 U/L (14-36); BLOOD UREA NITROGEN 23 mg/dL (7-21); CALCIUM 8.8 mg/dL (8.4-10.5); GFR NON-AFRICAN AMERICAN 53; HDL CHOLESTEROL 40 mg/dL (29-60)
[2018-08-05 07:31] LABS: TROPONIN I < 0.01 ng/mL
[2018-08-05 07:33] LABS: LDL CHOLESTEROL 67 mg/dL (0-129)
--- NOTE | 2018-08-05 08:59 | CARD ---
APPROVED REPORT Date of service: 08/05/2018 EKG Measurement Heart [id number] [id number] <Conclusion> Normal sinus rhythm with sinus arrhythmia Moderate voltage criteria for LVH, may be normal variant Borderline ECG
[2018-08-05] MEDS: Enoxaparin 30 mg Syringe SC SCH (11:01)
[2018-08-05] MEDS: Metoprolol Succinate 50 mg XL Tab PO SCH (11:01)
--- NOTE | 2018-08-05 11:48 | CT ---
Date of service: 08/04/2018 PROCEDURE: CT HEAD WITHOUT CONTRAST. HISTORY: headache, dizziness COMPARISON: 12/18/2016. TECHNIQUE: Axial computed tomography images were obtained through the head/brain without intravenous contrast. Supplemental Coronal and Sagittal projections created and reviewed. Radiation dose: Total exam DLP = 981.32 mGy-cm. This CT exam was performed using one or more of the following dose reduction techniques: Automated exposure control, adjustment of the mA and/or kV according to patient size, and/or use of iterative reconstruction technique. FINDINGS: HEMORRHAGE: No intracranial hemorrhage. BRAIN: No mass effect or edema. Age related senescent changes. VENTRICLES: Unremarkable. No hydrocephalus. CALVARIUM: Unremarkable. PARANASAL SINUSES: Unremarkable as visualized. No significant inflammatory changes. MASTOID AIR CELLS: Unremarkable as visualized. No inflammatory changes. OTHER FINDINGS: None. IMPRESSION: No acute intracranial abnormalities. No significant findings to account for the clinical presentation. No significant interval change compared to the prior examination(s). Concordant results (preliminary interpretation) provided by [facility]. Procedure Completed: 20:35. Preliminary Report: Interpreted and electronically signed: 21:16. Final Interpretation: 11:42. August 05, 2018
--- NOTE | 2018-08-05 15:15 | CP.PCM.PN ---
<Todd Jones - Last Filed: 08/05/18 15:12> Subjective - Date & Time of Evaluation Date of Evaluation: 08/05/18 Time of Evaluation: 09:10 - Subjective Subjective: Todd Jones PGY1 Medicine Progress Note Patient seen and examined at bedside this morning. No acute events reported overnight. Patient states chest pressure has resolved and denies CP, SOB, headache, numbness and tingling. Plan for cardiac cath on Tuesday. Admits to some diarrhea overnight, currently abdominal pain is resolved. Objective - Vital Signs/Intake and Output Vital Signs (last 24 hours): Temp Pulse Resp BP Pulse Ox 97.9 F 59 L 18 157/61 H 97 08/05/18 12:00 08/05/18 14:00 08/05/18 12:00 08/05/18 12:00 08/05/18 05:54 Intake and Output: 08/05/18 08/05/18 06:59 18:59 Intake Total 100 Output Total 0 Balance 100 - Medications Medications: Current Medications Acetaminophen (Tylenol 325mg Tab) 650 mg PO STAT PRN PRN Reason: Headache Aspirin (Ecotrin) 81 mg PO DAILY [facility] Last Admin: 08/05/18 11:01 Dose: 81 mg Atorvastatin Calcium (Lipitor) 80 mg PO DIN [facility] Last Admin: 08/04/18 22:48 Dose: 80 mg Clopidogrel Bisulfate (Plavix) 75 mg PO DAILY [facility] Last Admin: 08/05/18 11:01 Dose: 75 mg Enoxaparin Sodium (Lovenox) 30 mg SC DAILY [facility]; Protocol Last Admin: 08/05/18 11:01 Dose: 30 mg Metoprolol Succinate (Toprol Xl) 50 mg PO BRK [facility] Last Admin: 08/05/18 11:01 Dose: 50 mg Pantoprazole Sodium (Protonix Ec Tab) 40 mg PO 0600 [facility] Last Admin: 08/05/18 06:28 Dose: 40 mg - Labs Labs: 08/05/18 06:00 08/05/18 06:00 PT 11.0 SECONDS (9.4-12.5) 08/04/18 16:10 INR 0.99 08/04/18 16:10 APTT 31.5 Seconds (26.9-38.3) 08/04/18 16:10 Physical Exam - Constitutional Appears: No Acute Distress - Head Exam Head Exam: ATRAUMATIC, NORMAL INSPECTION - Eye Exam Eye Exam: EOMI Pupil Exam: PERRL - ENT Exam ENT Exam: Mucous Membranes Moist - Respiratory Exam Respiratory Exam: Clear to Auscultation Bilateral, NORMAL BREATHING PATTERN. absent: Wheezes, Respiratory Distress - Cardiovascular Exam Cardiovascular Exam: +S1, +S2. absent: Tachycardia, gallops, rubs - GI/Abdominal Exam GI & Abdominal Exam: Normal Bowel Sounds, Soft. absent: Firm, Guarding, Tenderness - Extremities Exam Extremities exam: Positive for: normal inspection, pedal pulses present. Neg ative for: calf tenderness - Back Exam Back exam: NORMAL INSPECTION - Neurological Exam Neurological exam: Alert, CN II-XII Intact, Oriented x3 - Skin Skin Exam: Normal Color, Warm Assessment and Plan - Assessment and Plan (Free Text) Assessment: This is an 78 year old female with PMH of CAD s/p 9 stents last one in 2017, GERD and double mastectomy in 2007 presenting to the hospital for 3 day history of chest pressure. Plan for cardiac cath on Tuesday. Plan ACS rule out/ Chest pressure -hx of CAD s/p 9 stents -plan for cardiac cath on Tuesday -lipid panel WNL -cardiology on consult, Dr. Mei -troponins x3 WNL -TSH mildly elevated, free T4 WNL -A1c pending -continue ASA, plavix -continue lipitor 80mg Dizziness -2/2 CAD vs vertebral insufficiency -carotid dopplers final read pending -CT head shows no acute intracranial abnormalities Hx of HTN -continue metoprolol 50mg Hx of GERD -continue protonix 40mg PPX/Diet -protonix/lovenox -HHD Patient seen and case discussed with attending, Wendy Conde <Bri Stern R - Last Filed: 08/05/18 15:37> Objective - Vital Signs/Intake and Output Vital Signs (last 24 hours): Temp Pulse Resp BP Pulse Ox 97.9 F 59 L 18 157/61 H 97 08/05/18 12:00 08/05/18 14:00 08/05/18 12:00 08/05/18 12:00 08/05/18 05:54 Intake and Output: 08/05/18 08/05/18 06:59 18:59 Intake Total 100 Output Total 0 Balance 100 - Medications Medications: Current Medications Acetaminophen (Tylenol 325mg Tab) 650 mg PO STAT PRN PRN Reason: Headache Aspirin (Ecotrin) 81 mg PO DAILY [facility] Last Admin: 08/05/18 11:01 Dose: 81 mg Atorvastatin Calcium (Lipitor) 80 mg PO DIN [facility] Last Admin: 08/04/18 22:48 Dose: 80 mg Clopidogrel Bisulfate (Plavix) 75 mg PO DAILY [facility] Last Admin: 08/05/18 11:01 Dose: 75 mg Enoxaparin Sodium (Lovenox) 30 mg SC DAILY [facility]; Protocol Last Admin: 08/05/18 11:01 Dose: 30 mg Losartan Potassium (Cozaar) 50 mg PO DAILY [facility] Metoprolol Succinate (Toprol Xl) 50 mg PO BRK [facility] Last Admin: 08/05/18 11:01 Dose: 50 mg Pantoprazole Sodium (Protonix Ec Tab) 40 mg PO 0600 [facility] Last Admin: 08/05/18 06:28 Dose: 40 mg - Labs Labs: 08/05/18 06:00 08/05/18 06:00 PT 11.0 SECONDS (9.4-12.5) 08/04/18 16:10 INR 0.99 08/04/18 16:10 APTT 31.5 Seconds (26.9-38.3) 08/04/18 16:10 Attending/Attestation - Attestation I have personally seen and examined this patient.: Yes I have fully participated in the care of the patient.: Yes I have reviewed all pertinent clinical information, including history, physical exam and plan: Yes Notes (Text): Patient seen and examined by me with resident at approximately 8:45AM on 08/05/18. Case including HPI, physical exam, and assessment and plan discussed with resident. Agree with above with following additions/corrections. Patient is an 78-year-old female with past medical history significant for coronary artery disease status post 9 stents, hypertension, hypercholesterolemia, and acid reflux that presented to the emergency room with chest pressure and pain. Patient states she feels a little better today. States that she does not feel the chest pressure any more. She states she had a "gas" feeling in her upper abdomen overnight and did not feel well. States it has resolved today. She denies any shortness of breath. No nausea or vomiting. Headache has improved. Left neck pain has improved. No more tingling or numbness in bilateral arms. No fevers or chills. No more dizziness. No dysuria. Physical exam: General: Awake and alert, sitting up in bed in no acute distress. HEENT: Normocephalic, atraumatic, Extraocular muscles intact, pupils equal and reactive, no scleral icterus. Improve left conjunctival injection. Oropharynx is pink and moist. Neck is supple. Cardiovascular: Normal rhythm. Normal S1 and S2. Positive systolic murmur. No rubs or gallops appreciated. Pulmonary: Normal respiratory effort. No rhonchi, rales, or wheezing appreciated. Gastrointestinal: Soft. Nontender. Nondistended. Positive bowel sounds all 4 quadrants. No guarding. Musculoskeletal: Moves all extremities. No calf tenderness. No edema appreciated. Improved left cervical paraspinal muscle tenderness and ropiness. Central nervous system: AAO x 3, CN 2-12 grossly intact. 5/5 muscle strength all extremities. Dermatologic: Skin warm and dry. Assessment and plan: Patient is an 78-year-old female with past medical history significant for coronary artery disease status post 9 stents, hypertension, hypercholesterolemia, and acid reflux that presented to the emergency room with chest pressure and pain. 1. Chest pain/pressure in a patient with CAD s/p 9 stents. Improved. Cardiology following, recommendations appreciated. Troponins within normal limits. Continue ASA, Plavix, Lipitor, Cozaar, and metoprolol. Patient is a high risk patient with typical ACS symptoms. Patient for cardiac cath on Tuesday08/07/18 per rn recruitment. 2. Headache. Dizziness. Improved. Head CT per radiologist showed no acute intracranial abnormalities, no significant findings to account for her clinical presentation. Carotid doppler results pending. 3. Acid reflux. Continue Protonix 4. Hypertension. Continue home metoprolol and Cozaar 5. Hypercholesterolemia. Patient on Crestor at home. Continue Lipitor 80mg here. 6. GI/DVT prophylaxis. Protonix/SCDs 7. Patient is a full code. Case discussed in detail with patient regarding current diagnosis and treatment plan. All questions answered. Case also discussed with rn recruitment.
--- NOTE | 2018-08-05 18:51 | PN ---
DATE: 08/05/2018 SUBJECTIVE: The patient has no recurrence of chest pain. PHYSICAL EXAMINATION: VITAL SIGNS: Blood pressure 156/61, heart rate 63, temperature 97.5, respirations 18. HEENT: Normocephalic. CHEST: Clear. HEART: S1 and S2 regular. ABDOMEN: Soft. EXTREMITIES: No edema. LABORATORY DATA: Today's CBC is entirely within normal limits. Today's SMA-7: Sodium 141, potassium 4.4, chloride 110, CO2 of 23, glucose 166, BUN 23, creatinine 1. TSH level is elevated at 4.74. Today's EKG reveals sinus rhythm with LVH by voltage at the rate of 60. ASSESSMENT: 1. Chest pain, myocardial infarction was ruled out. 2. Uncontrolled diabetes mellitus. 3. History of coronary artery disease with stenting to in-stent stenosis of the right coronary artery one year ago. 4. Hypertension and hyperlipidemia. RECOMMENDATIONS: Continue aspirin 81 mg once a day, Toprol XL 50 mg once a day, Plavix 75 mg once a day, Lipitor 80 mg once a day, Lovenox 30 mg once a day. I will discuss with Dr. Mei the need for cardiac catheterization early next week. Job Phelps MD
[2018-08-06] MEDS: Pantoprazole 40 mg EC Tab PO SCH (05:34)
[2018-08-06] MEDS: Metoprolol Succinate 50 mg XL Tab PO SCH (07:27)
[2018-08-06 07:42] LABS: BASO # 0.02 K/mm3 (0.0-2.0); BASO % 0.4 % (0.0-3.0); EOS # 0.3 (0.0-0.7); EOS % 5.4 % (1.5-5.0); HEMOGLOBIN 12.4 g/dL (12.0-16.0); LYMPH # 1.8 (1.2-3.4); LYMPH % 36.9 % (22.0-35.0); MEAN CORPUSCULAR HEMOGLOBIN 28.9 pg (25.0-35.0); MEAN CORPUSCULAR HGB CONC 32.1 g/dl (31.0-37.0); MEAN PLATELET VOLUME 11.1 fl (7.0-11.0); MONO # 0.2 (0.1-0.6); MONO % 4.2 % (1.0-6.0); RBC 4.29 10^6/uL (3.5-6.1); RED CELL DISTRIBUTION WIDTH 14.1 % (11.5-14.5)
[2018-08-06 07:59] LABS: ALB/GLOB RATIO 1.1 (1.1-1.8); ALBUMIN 3.9 g/dL (3.0-4.8)
[2018-08-06] MEDS: Enoxaparin 30 mg Syringe SC SCH (09:41)
--- NOTE | 2018-08-06 10:32 | CP.PCM.PN ---
<Todd Jones - Last Filed: 08/06/18 10:27> Subjective - Date & Time of Evaluation Date of Evaluation: 08/06/18 Time of Evaluation: 08:30 - Subjective Subjective: Todd Jones PGY1 Medicine Progress Note Patient seen and examined at bedside this morning. No acute events reported overnight. Patient resting comfortably sitting up in bed and eating food. Denies any complaints at this time. Will make NPO tonight for possible cardiac cath in AM. Objective - Vital Signs/Intake and Output Vital Signs (last 24 hours): Temp Pulse Resp BP Pulse Ox 98.3 F 86 20 177/60 H 99 08/06/18 05:27 08/06/18 09:41 08/06/18 05:27 08/06/18 09:41 08/06/18 05:27 Intake and Output: 08/06/18 08/06/18 06:59 18:59 Intake Total 840 Balance 840 - Medications Medications: Current Medications Acetaminophen (Tylenol 325mg Tab) 650 mg PO STAT PRN PRN Reason: Headache Aspirin (Ecotrin) 81 mg PO DAILY [facility] Last Admin: 08/06/18 09:41 Dose: 81 mg Atorvastatin Calcium (Lipitor) 80 mg PO DIN [facility] Last Admin: 08/05/18 17:16 Dose: 80 mg Clopidogrel Bisulfate (Plavix) 75 mg PO DAILY [facility] Last Admin: 08/06/18 09:41 Dose: 75 mg Enoxaparin Sodium (Lovenox) 30 mg SC DAILY [facility]; Protocol Last Admin: 08/06/18 09:41 Dose: 30 mg Losartan Potassium (Cozaar) 50 mg PO DAILY [facility] Last Admin: 08/06/18 09:41 Dose: 50 mg Metoprolol Succinate (Toprol Xl) 50 mg PO DAILY [facility] Pantoprazole Sodium (Protonix Ec Tab) 40 mg PO 0600 [facility] Last Admin: 08/06/18 05:34 Dose: 40 mg - Labs Labs: 08/06/18 07:00 08/06/18 07:00 PT 11.0 SECONDS (9.4-12.5) 08/04/18 16:10 INR 0.99 08/04/18 16:10 APTT 31.5 Seconds (26.9-38.3) 08/04/18 16:10 Physical Exam - Constitutional Appears: No Acute Distress - Head Exam Head Exam: ATRAUMATIC, NORMAL INSPECTION - Eye Exam Eye Exam: EOMI Pupil Exam: PERRL - ENT Exam ENT Exam: Mucous Membranes Moist - Respiratory Exam Respiratory Exam: Clear to Auscultation Bilateral, NORMAL BREATHING PATTERN. absent: Wheezes, Respiratory Distress - Cardiovascular Exam Cardiovascular Exam: +S1, +S2, systolic murmur absent: Tachycardia, gallops, rubs - GI/Abdominal Exam GI & Abdominal Exam: Normal Bowel Sounds, Soft. absent: Firm, Guarding, Tenderness - Extremities Exam Extremities exam: Positive for: normal inspection, pedal pulses present. Neg ative for: calf tenderness - Back Exam Back exam: NORMAL INSPECTION - Neurological Exam Neurological exam: Alert, CN II-XII Intact, Oriented x3 - Skin Skin Exam: Normal Color, Warm Assessment and Plan - Assessment and Plan (Free Text) Assessment: This is an 78 year old female with PMH of CAD s/p 9 stents last one in 2017, GERD and double mastectomy in 2007 presenting to the hospital for 3 day history of chest pressure. Plan for cardiac cath on Tuesday, NPO tonight. Plan ACS rule out/ Chest pressure -hx of CAD s/p 9 stents -plan for cardiac cath on Tuesday, will make NPO tonight -troponins x3 unremarkable -lipid panel unremarkable -cardiology on consult, Dr. Mei -TSH mildly elevated, free T4 WNL -A1c pending -continue ASA, plavix 75mg -continue lipitor 80mg Dizziness -2/2 CAD vs vertebral insufficiency -CT head shows no acute intracranial abnormalities -carotid dopplers final read pending Hx of HTN -continue metoprolol 50mg Hx of GERD -continue protonix 40mg PPX/Diet -protonix/lovenox -HHD Patient seen and case discussed with attending, Wendy Conde <Bri Stern R - Last Filed: 08/06/18 10:35> Objective - Vital Signs/Intake and Output Vital Signs (last 24 hours): Temp Pulse Resp BP Pulse Ox 98.3 F 86 20 177/60 H 99 08/06/18 05:27 08/06/18 09:41 08/06/18 05:27 08/06/18 09:41 08/06/18 05:27 Intake and Output: 08/06/18 08/06/18 06:59 18:59 Intake Total 840 Balance 840 - Medications Medications: Current Medications Acetaminophen (Tylenol 325mg Tab) 650 mg PO STAT PRN PRN Reason: Headache Aspirin (Ecotrin) 81 mg PO DAILY [facility] Last Admin: 08/06/18 09:41 Dose: 81 mg Atorvastatin Calcium (Lipitor) 80 mg PO DIN [facility] Last Admin: 08/05/18 17:16 Dose: 80 mg Clopidogrel Bisulfate (Plavix) 75 mg PO DAILY [facility] Last Admin: 08/06/18 09:41 Dose: 75 mg Enoxaparin Sodium (Lovenox) 30 mg SC DAILY [facility]; Protocol Last Admin: 08/06/18 09:41 Dose: 30 mg Losartan Potassium (Cozaar) 50 mg PO DAILY [facility] Last Admin: 08/06/18 09:41 Dose: 50 mg Metoprolol Succinate (Toprol Xl) 50 mg PO DAILY [facility] Pantoprazole Sodium (Protonix Ec Tab) 40 mg PO 0600 [facility] Last Admin: 08/06/18 05:34 Dose: 40 mg - Labs Labs: 08/06/18 07:00 08/06/18 07:00 PT 11.0 SECONDS (9.4-12.5) 08/04/18 16:10 INR 0.99 08/04/18 16:10 APTT 31.5 Seconds (26.9-38.3) 08/04/18 16:10 Attending/Attestation - Attestation I have personally seen and examined this patient.: Yes I have fully participated in the care of the patient.: Yes I have reviewed all pertinent clinical information, including history, physical exam and plan: Yes Notes (Text): Patient seen and examined by me with resident at approximately 8:25AM on 08/06/18. Case including HPI, physical exam, and assessment and plan discussed with resident. Agree with above with following additions/corrections. Patient is an 78-year-old female with past medical history significant for coronary artery disease status post 9 stents, hypertension, hypercholesterolemia, and acid reflux that presented to the emergency room with chest pressure and pain. Patient states she feels better. States abdominal discomfort has improved. No more chest pain or pressure. Patient denies dizziness. No left neck pain. She denies any shortness of breath but states she has not done much so is unsure if that has resolved. No nausea or vomiting. No dysuria. Physical exam: General: Awake and alert, sitting up in bed in no acute distress. HEENT: Normocephalic, atraumatic, Extraocular muscles intact, pupils equal and reactive, no scleral icterus. Resolved left conjunctival injection. Oropharynx is pink and moist. Neck is supple. Cardiovascular: Normal rhythm. Normal S1 and S2. Positive systolic murmur. No rubs or gallops appreciated. Pulmonary: Normal respiratory effort. No rhonchi, rales, or wheezing appreciated. Gastrointestinal: Soft. Nontender. Nondistended. Positive bowel sounds all 4 quadrants. No guarding. Musculoskeletal: Moves all extremities. No calf tenderness. No edema appreciated. Improved left cervical paraspinal muscle tenderness and ropiness. Central nervous system: AAO x 3, CN 2-12 grossly intact. 5/5 muscle strength all extremities. Dermatologic: Skin warm and dry. Assessment and plan: Patient is an 78-year-old female with past medical history significant for coronary artery disease status post 9 stents, hypertension, hypercholesterolemia, and acid reflux that presented to the emergency room with chest pressure and pain. 1. Chest pain/pressure in a patient with CAD s/p 9 stents. Resolved for now at rest. Cardiology following, recommendations appreciated. Troponins within normal limits. Continue ASA, Plavix, Lipitor, Cozaar, and metoprolol. Hgb A1C 6.4. Patient is a high risk patient with typical ACS symptoms. Patient for possible cardiac cath on Tuesday08/07/18 per pony ride attendant. 2. Headache. Dizziness. Resolved. Head CT per radiologist showed no acute intracranial abnormalities, no significant findings to account for her clinical presentation. Carotid doppler results pending. 3. Acid reflux. Continue Protonix 4. Hypertension. Continue home metoprolol and Cozaar 5. Hypercholesterolemia. Patient on Crestor at home. Continue Lipitor 80mg here. 6. GI/DVT prophylaxis. Protonix/SCDs 7. Patient is a full code. Case discussed in detail with patient regarding current diagnosis and treatment plan. All questions answered.
--- NOTE | 2018-08-06 12:15 | US ---
PROCEDURE: Bilateral carotid artery duplex ultrasound HISTORY: Carotid stenosis PHYSICIAN(S): Roshan Hernandez MD. TECHNIQUE: Duplex sonography and color-flow Doppler were used to evaluate the carotid bifurcations and limited segments of the vertebral arteries bilaterally. FINDINGS: The exam is somewhat limited by tortuous vessels. There is mild smooth heterogeneous plaque noted at the bifurcations bilaterally. The peak systolic velocity in the proximal right internal carotid artery is 86 cm/second. This corresponds to a 20-39 percent proximal right ICA stenosis. Normal velocities are seen in the proximal right external carotid artery. There is antegrade flow in the right vertebral artery. The peak systolic velocity in the proximal left internal carotid artery is 93 cm/sec. This corresponds to a 20 to 39% proximal left ICA stenosis. Normal systolic velocities are noted in the proximal left external carotid artery. There is antegrade flow in the left vertebral artery. IMPRESSION: 1. Bilateral 20-39% proximal ICA stenoses. 2. Antegrade flow in both vertebral arteries.
[2018-08-06] MEDS ORDERED: Metoprolol Succinate 50 mg XL Tab PO SCH (22:00)
--- NOTE | 2018-08-06 22:01 | PN ---
DATE: 08/06/2018 SUBJECTIVE: The patient denies any recurrence of chest pain. OBJECTIVE: VITAL SIGNS: Blood pressure 205/67, heart rate 79, temperature 97.8, and respirations 18. HEENT: Normocephalic. CHEST: Clear. HEART: S1 and S2. Regular. EXTREMITIES: No edema. LABORATORY DATA: Hemoglobin, hematocrit, white count and platelet count today are within normal limits. SMA-7 is within normal limits except for chloride of 112 and BUN of 23. ASSESSMENT: 1. Chest pain, myocardial infarction is ruled out. 2. Uncontrolled hypertension. 3. Coronary artery disease with history of stenting to an in-stent stenosis of the right coronary artery last year. RECOMMENDATIONS: Continue Cozaar mg once a day, aspirin 81 mg once a day, Plavix 75 mg once a day, Lipitor 80 mg once a day, and Toprol-XL 50 mg daily. I will administer one dose of Lasix 20 mg IV push now and hold her a.m. Lovenox. Job Phelps MD
[2018-08-07] MEDS: Pantoprazole 40 mg EC Tab PO SCH (05:43)
[2018-08-07 07:27] LABS: ALB/GLOB RATIO 1.1 (1.1-1.8); CALCIUM 9.1 mg/dL (8.4-10.5)
[2018-08-07] MEDS: Metoprolol Succinate 50 mg XL Tab PO SCH (09:05)
[2018-08-07 09:10] LABS: BASO # 0.02 K/mm3 (0.0-2.0); BASO % 0.3 % (0.0-3.0); EOS # 0.3 (0.0-0.7); HEMOGLOBIN 12.6 g/dL (12.0-16.0); LYMPH # 2.4 (1.2-3.4); LYMPH % 40.3 % (22.0-35.0); MEAN CELL VOLUME 88.4 fl (80.0-105.0); MEAN CORPUSCULAR HEMOGLOBIN 29.2 pg (25.0-35.0); MEAN PLATELET VOLUME 10.8 fl (7.0-11.0); MONO # 0.4 (0.1-0.6); MONO % 5.8 % (1.0-6.0); RBC 4.32 10^6/uL (3.5-6.1); RED CELL DISTRIBUTION WIDTH 13.9 % (11.5-14.5); WHITE BLOOD COUNT 6.1 10^3/uL (4.5-11.0)
[2018-08-07] MEDS ORDERED: Lidocaine PF 2% (5 ml) Inj (For Cardiac Arrhy) ONE (14:08)
[2018-08-07] MEDS ORDERED: Iohexol 350mgl/ml 50 ML ONE (14:09)
[2018-08-07] MEDS ORDERED: Iodixanol 320 MG/ML 200 ML BOTTLE IV ONE (14:09)
[2018-08-07] MEDS ORDERED: Iodixanol 320 MG/ML 100 ML BOTTLE IV ONE (14:09)
[2018-08-07] MEDS ORDERED: Phenylephrine 10 mg/ml Inj ONE (14:15)
[2018-08-07] MEDS ORDERED: Midazolam 2 MG/2 ML VIAL ONE ×2 (14:41→14:53)
--- NOTE | 2018-08-07 15:03 | CP.PCM.PN ---
<Todd Jones - Last Filed: 08/07/18 15:01> Subjective - Date & Time of Evaluation Date of Evaluation: 08/07/18 Time of Evaluation: 08:00 - Subjective Subjective: Todd Jones PGY1 Medicine Progress Note Patient seen and examined at bedside this morning. No acute events reported overnight. Patient sitting in bed comfortably and denies any complaints at this time. Cardiac cath today. Objective - Vital Signs/Intake and Output Vital Signs (last 24 hours): Temp Pulse Resp BP Pulse Ox 98.8 F 51 L 19 120/67 96 08/07/18 12:00 08/07/18 12:00 08/07/18 12:00 08/07/18 12:00 08/07/18 06:00 Intake and Output: 08/07/18 08/07/18 06:59 18:59 Intake Total 1020 Output Total 3 Balance 1017 - Medications Medications: Current Medications Acetaminophen (Tylenol 325mg Tab) 650 mg PO STAT PRN PRN Reason: Headache Aspirin (Ecotrin) 81 mg PO DAILY [facility] Last Admin: 08/07/18 09:05 Dose: 81 mg Atorvastatin Calcium (Lipitor) 40 mg PO DIN [facility] Clopidogrel Bisulfate (Plavix) 75 mg PO DAILY [facility] Last Admin: 08/07/18 09:05 Dose: 75 mg Famotidine (Pepcid) 20 mg PO 1000,2200 [facility] Losartan Potassium (Cozaar) 50 mg PO DAILY [facility] Last Admin: 08/07/18 09:05 Dose: 50 mg Metoprolol Succinate (Toprol Xl) 50 mg PO DAILY [facility] Last Admin: 08/07/18 09:05 Dose: 50 mg - Labs Labs: 08/07/18 08:30 08/07/18 06:10 PT 11.0 SECONDS (9.4-12.5) 08/04/18 16:10 INR 0.99 08/04/18 16:10 APTT 31.5 Seconds (26.9-38.3) 08/04/18 16:10 Physical Exam - Constitutional Appears: No Acute Distress - Head Exam Head Exam: ATRAUMATIC, NORMAL INSPECTION - Eye Exam Eye Exam: EOMI Pupil Exam: PERRL - ENT Exam ENT Exam: Mucous Membranes Moist - Respiratory Exam Respiratory Exam: Clear to Auscultation Bilateral, NORMAL BREATHING PATTERN. absent: Wheezes, Respiratory Distress - Cardiovascular Exam Cardiovascular Exam: +S1, +S2, systolic murmur absent: Tachycardia, rubs - GI/Abdominal Exam GI & Abdominal Exam: Normal Bowel Sounds, Soft. absent: Firm, Guarding, Tenderness - Extremities Exam Extremities exam: Positive for: normal inspection, pedal pulses present. Nega tive for: calf tenderness - Back Exam Back exam: NORMAL INSPECTION - Neurological Exam Neurological exam: Alert, CN II-XII Intact, Oriented x3 - Skin Skin Exam: Normal Color, Warm Assessment and Plan - Assessment and Plan (Free Text) Assessment: This is an 78 year old female with PMH of CAD s/p 9 stents last one in 2017, GERD and double mastectomy in 2007 presenting to the hospital for 3 day history of chest pressure. Cardiac cath today. Plan ACS rule out/ Chest pressure -hx of CAD s/p 9 stents -cardiac cath today, will follow up recommendations -troponins x3 unremarkable -lipid panel unremarkable -cardiology on consult, Dr. Mei -TSH mildly elevated, free T4 WNL -A1c pending -continue ASA, plavix 75mg -continue lipitor 80mg Dizziness -2/2 CAD vs vertebral insufficiency -CT head shows no acute intracranial abnormalities -carotid dopplers shows B/L 20-39% proximal ICA stenosis Hx of HTN -continue metoprolol 50mg Hx of GERD -continue pepcid 40mg PPX/Diet -pepcid/lovenox -HHD Patient seen and case discussed with attending, Wendy Conde <Bri Stern R - Last Filed: 08/07/18 15:42> Objective - Vital Signs/Intake and Output Vital Signs (last 24 hours): Temp Pulse Resp BP Pulse Ox 98.8 F 51 L 19 120/67 96 08/07/18 12:00 08/07/18 12:00 08/07/18 12:00 08/07/18 12:00 08/07/18 06:00 Intake and Output: 08/07/18 08/07/18 06:59 18:59 Intake Total 1020 Output Total 3 Balance 1017 - Medications Medications: Current Medications Acetaminophen (Tylenol 325mg Tab) 650 mg PO STAT PRN PRN Reason: Headache Aspirin (Ecotrin) 81 mg PO DAILY [facility] Last Admin: 08/07/18 09:05 Dose: 81 mg Atorvastatin Calcium (Lipitor) 40 mg PO DIN [facility] Famotidine (Pepcid) 20 mg PO 1000,2200 [facility] Sodium Chloride (Sodium Chloride 0.9%) 1,000 mls @ 100 mls/hr IV .Q10H [facility] Stop: 08/07/18 21:00 Losartan Potassium (Cozaar) 50 mg PO DAILY [facility] Last Admin: 08/07/18 09:05 Dose: 50 mg Metoprolol Succinate (Toprol Xl) 50 mg PO DAILY [facility] Last Admin: 08/07/18 09:05 Dose: 50 mg - Labs Labs: 08/07/18 08:30 08/07/18 06:10 PT 11.0 SECONDS (9.4-12.5) 08/04/18 16:10 INR 0.99 08/04/18 16:10 APTT 31.5 Seconds (26.9-38.3) 08/04/18 16:10 Attending/Attestation - Attestation I have personally seen and examined this patient.: Yes I have fully participated in the care of the patient.: Yes I have reviewed all pertinent clinical information, including history, physical exam and plan: Yes Notes (Text): Patient seen and examined by me with resident at approximately 10:55AM on 9. Case including HPI, physical exam, and assessment and plan discussed with resident. Agree with above with following additions/corrections. Patient is an 78-year-old female with past medical history significant for coronary artery disease status post 9 stents, hypertension, hypercholesterolemia, and acid reflux that presented to the emergency room with chest pressure and pain. Patient states she feels much better. States she has some intermittent "gasy abdominal pain." She denies chest pain or pressure. No shortness of breath. No headaches or dizziness. No left neck pain. No nausea or vomiting. No dysuria. No diarrhea or constipation. Physical exam: General: Awake and alert, sitting up in bed in no acute distress. HEENT: Normocephalic, atraumatic, Extraocular muscles intact, pupils equal and reactive, no scleral icterus. Resolved left conjunctival injection. Oropharynx is pink and moist. Neck is supple. Cardiovascular: Normal rhythm. Normal S1 and S2. Positive systolic murmur. No rubs or gallops appreciated. Pulmonary: Normal respiratory effort. No rhonchi, rales, or wheezing appreciated. Gastrointestinal: Soft. Nontender. Nondistended. Positive bowel sounds all 4 quadrants. No guarding. Musculoskeletal: Moves all extremities. No calf tenderness. No edema appreciated. Central nervous system: AAO x 3, CN 2-12 grossly intact. 5/5 muscle strength all extremities. Dermatologic: Skin warm and dry. Assessment and plan: Patient is an 78-year-old female with past medical history significant for coronary artery disease status post 9 stents, hypertension, hypercholesterolemia, and acid reflux that presented to the emergency room with chest pressure and pain. 1. Chest pain/pressure in a patient with CAD s/p 9 stents. Resolved. Cardiology following, recommendations appreciated. Patient for cardiac catheterization today. Troponins within normal limits. Continue ASA, Plavix, Lipitor, Cozaar, and Metoprolol. Hgb A1C 6.4. 2. Headache. Dizziness. Resolved. Head CT per radiologist showed no acute intracranial abnormalities, no significant findings to account for her clinical presentation. Carotid dopplers per radiologist showed bilateral 20-39% proximal ICA stenosis, antegrade flow in both vertebral arteries. 3. GERD. Continue pepcid. 4. Hypertension. Continue Metoprolol and Cozaar 5. Hypercholesterolemia. Patient on Crestor at home. Continue Lipitor 80mg here. 6. GI/DVT prophylaxis. Protonix/SCDs 7. Patient is a full code. Case discussed in detail with patient regarding current diagnosis and treatment plan. All questions answered.
[2018-08-07] MEDS ORDERED: Sodium Chloride 0.9% 1,000 ML IV SCH (15:15)
--- NOTE | 2018-08-07 17:31 | CARDCATH ---
PROCEDURE DATE: 08/07/2018 PROCEDURES: 1. Left heart catheterization with coronary arteriography and left ventriculogram. HISTORY: The patient is an 78-year-old woman with multiple cardiac risk factors and documented triple-vessel CAD and triple-vessel stents in the past, who presents with recurrence of angina. Because of this, and her symptoms progressing to angina at rest, a cardiac catheterization was recommended. The right femoral artery was cannulated with a 6-Azeri sheath. There were no complications. I performed moderate sedation which included the presence of an independent trained observer that assisted in monitoring the patient's level of consciousness and physiologic status. After administration of Versed and fentanyl, my intra service time was 15 minutes. Findings on catheterization revealed a left ventricle that contracted normally. Estimated ejection fraction of 70%. Her coronary anatomy revealed a right dominant circulation. The RCA revealed a patent stent at its ostium. There were no critical lesions. The left main artery was unremarkable. There were patent stents in the proximal LAD and diagonal vessels which were bifurcating stents. After the stent in the LAD, there was a 50% stenoses noted. The circumflex artery revealed intimal irregularities and revealed a patent stent. Angio-Seal was used to close the femoral artery site. The patient tolerated the procedure well. In summary, the procedure revealed patent stents in the LAD, RCA, circumflex artery, and diagonal vessel. There is a 50% stenoses in the LAD after the stent. LV function is normal with an EF of 70%. Given these findings, the patient's chest pain is not of cardiac origin, the patient's treatment will be a continued cardiac risk reduction program. Roshan Mei MD
[2018-08-08 05:47] VITALS: O2SAT 98
[2018-08-08] MEDS: Metoprolol Succinate 50 mg XL Tab PO SCH (09:30)
[2018-08-08 12:19] LABS: BASO # 0.02 K/mm3 (0.0-2.0); BASO % 0.3 % (0.0-3.0); EOS # 0.4 (0.0-0.7); EOS % 5.9 % (1.5-5.0); HEMOGLOBIN 11.5 g/dL (12.0-16.0); LYMPH # 1.8 (1.2-3.4); MEAN CELL VOLUME 88.9 fl (80.0-105.0); MEAN CORPUSCULAR HGB CONC 32.7 g/dl (31.0-37.0); MEAN PLATELET VOLUME 10.3 fl (7.0-11.0); MONO # 0.3 (0.1-0.6); MONO % 4.5 % (1.0-6.0); RBC 3.96 10^6/uL (3.5-6.1); RED CELL DISTRIBUTION WIDTH 13.9 % (11.5-14.5); WHITE BLOOD COUNT 6.1 10^3/uL (4.5-11.0)
[2018-08-08 12:34] VITALS: BP 163/65; PULSE 64; RESP 20; TEMP 97.8
[2018-08-08 12:45] LABS: ALB/GLOB RATIO 1.2 (1.1-1.8); ALBUMIN 3.8 g/dL (3.0-4.8); CALCIUM 8.8 mg/dL (8.4-10.5)
--- NOTE | 2018-08-08 13:49 | CP.PCM.DIS ---
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 Referral Routine Comment: Physician Instructions: Reason For Exam: EVALUATION Transition In Care/Readmission Reduction Routine Comment: Physician Instructions: Reason For Exam: EVALUATION Time Spent in preparation of Discharge (in minutes): 35 Hospital Course - Lab Results Lab Results: Most Recent Lab Values WBC 6.1 10^3/uL (4.5-11.0) 08/08/18 12:00 RBC 3.96 10^6/uL (3.5-6.1) 08/08/18 12:00 Hgb 11.5 g/dL (12.0-16.0) L 08/08/18 12:00 Hct 35.2 % (36.0-48.0) L 08/08/18 12:00 MCV 88.9 fl (80.0-105.0) 08/08/18 12:00 MCH 29.0 pg (25.0-35.0) 08/08/18 12:00 MCHC 32.7 g/dl (31.0-37.0) 08/08/18 12:00 RDW 13.9 % (11.5-14.5) 08/08/18 12:00 Plt Count 117 10^3/uL (120.0-450.0) L 08/08/18 12:00 MPV 10.3 fl (7.0-11.0) 08/08/18 12:00 Neut % (Auto) 60.3 % (50.0-68.0) 08/08/18 12:00 Lymph % (Auto) 29.0 % (22.0-35.0) 08/08/18 12:00 [place] % (Auto) 4.5 % (1.0-6.0) 08/08/18 12:00 Eos % (Auto) 5.9 % (1.5-5.0) H 08/08/18 12:00 Baso % (Auto) 0.3 % (0.0-3.0) 08/08/18 12:00 Lymph # (Auto) 1.8 (1.2-3.4) 08/08/18 12:00 [place] # (Auto) 0.3 (0.1-0.6) 08/08/18 12:00 Eos # (Auto) 0.4 (0.0-0.7) 08/08/18 12:00 Baso # (Auto) 0.02 K/mm3 (0.0-2.0) 08/08/18 12:00 Absolute Neuts (auto) 3.65 (1.4-6.5) 08/08/18 12:00 PT 11.0 SECONDS (9.4-12.5) 08/04/18 16:10 INR 0.99 08/04/18 16:10 APTT 31.5 Seconds (26.9-38.3) 08/04/18 16:10 Sodium 142 mmol/L (132-148) 08/08/18 12:00 Potassium 3.8 mmol/L (3.6-5.0) 08/08/18 12:00 Chloride 112 mmol/L (98-107) H 08/08/18 12:00 Carbon Dioxide 23 mmol/L (21-33) 08/08/18 12:00 Anion Gap 11 (10-20) 08/08/18 12:00 BUN 25 mg/dL (7-21) H 08/08/18 12:00 Creatinine 1.3 mg/dl (0.7-1.2) H 08/08/18 12:00 Est GFR ( Amer) 48 08/08/18 12:00 Est GFR (Non-Af Amer) 39 08/08/18 12:00 Random Glucose 113 mg/dL (70-110) H 08/08/18 12:00 Hemoglobin A1c 6.4 % (4.2-6.5) 08/05/18 07:00 Calcium 8.8 mg/dL (8.4-10.5) 08/08/18 12:00 Magnesium 2.4 mg/dL (1.7-2.2) H 08/05/18 06:00 Total Bilirubin 0.5 mg/dL (0.2-1.3) 08/08/18 12:00 AST 37 U/L (14-36) H D 08/08/18 12:00 ALT 15 U/L (7-56) 08/08/18 12:00 Alkaline Phosphatase 66 U/L (38-126) 08/08/18 12:00 Troponin I < 0.01 ng/mL 08/05/18 06:00 Total Protein 7.0 g/dL (5.8-8.3) 08/08/18 12:00 Albumin 3.8 g/dL (3.0-4.8) 08/08/18 12:00 Globulin 3.2 gm/dL 08/08/18 12:00 Albumin/Globulin Ratio 1.2 (1.1-1.8) 08/08/18 12:00 Triglycerides 126 mg/dL (35-160) 08/05/18 06:00 Cholesterol 137 mg/dL (130-200) 08/05/18 06:00 LDL Cholesterol Direct 67 mg/dL (0-129) 08/05/18 06:00 HDL Cholesterol 40 mg/dL (29-60) 08/05/18 06:00 Free T4 1.08 ng/dL (0.78-2.19) 08/05/18 08:41 TSH 3rd Generation 4.74 mIU/mL (0.46-4.68) H 08/05/18 06:00 Physical Exam - Constitutional Appears: No Acute Distress - Head Exam Head Exam: ATRAUMATIC, NORMAL INSPECTION - Eye Exam Eye Exam: EOMI Pupil Exam: PERRL - ENT Exam ENT Exam: Mucous Membranes Moist - Respiratory Exam Respiratory Exam: Clear to Auscultation Bilateral, NORMAL BREATHING PATTERN. absent: Wheezes, Respiratory Distress - Cardiovascular Exam Cardiovascular Exam: +S1, +S2, systolic murmur absent: Tachycardia, rubs - GI/Abdominal Exam GI & Abdominal Exam: Normal Bowel Sounds, Soft. absent: Firm, Guarding, Tenderness - Extremities Exam Extremities exam: Positive for: normal inspection, pedal pulses present. Right groin site is clean and non draining; no hematoma noted. Negative for: calf tenderness - Back Exam Back exam: NORMAL INSPECTION - Neurological Exam Neurological exam: Alert, CN II-XII Intact, Oriented x3 - Skin Skin Exam: Normal Color, Warm - Hospital Course Hospital Course: Upon admission, 78 year old female with PMH of CAD s/p 9 stents last one in 2017, GERD and double masectomy in 2007 presenting to the hospital for 3 day history of chest pressure. Patient states symptoms occur at rest, occur intemittantly and is associated with SOB, dizziness and tingling in the left arm. Patient tried nitroglycerin which initially helped with chest pressure but symptoms resume shortly after. Patient states she believed chest pressure was related to heartburn but decided to come to ER due to history of heart disease. During hospital course, patient's troponins x3 were WNL and EKG did not show any acute ST changes. TSH was mildly elevated and free T4 was WNL. CT head did not any acute abnormalities and carotid dopplers performed shows B/L 20-39% proximal ICA stenosis. Cardiology was on consult and cardiac cath on 08/07/18 showed patent stents in LAD, RCA and circumflex artery with 50% stenosis in LAD and EF of 70% with recommendation of non cardiac etiology of chest pain. Patient's plavix was stopped as per cardiology due to greater than one year since last stent. Patient verbally acknowledged understanding of stopping plavix and states she did not need any refills for her medications. All of her questions were answered and she agreed with discharged today. Discharge Plan - Follow Up Plan Condition: STABLE Disposition: HOME/ ROUTINE Instructions: Coronary Heart Disease, Cardiac Catheterization, Heart Healthy Diet, Chest Pain Additional Instructions: - Follow up with your primary doctor within 3-5 days. Please have your blood work checked as you received dye during your cardiac catheterization that can effect your kidneys. - Follow up with your splitting machine feeder, Dr. Mei, within one week. - Your home Plavix has been stopped. Please stop taking this medication. - Resume all other home medications as prescribed - Return to ED if symptoms return Referrals: Atilio Arredondo MD [Primary Care Provider] - Roshan Mei MD [Staff Provider] - <Bri Stern - Last Filed: 08/08/18 15:45> Provider - Provider Date of Admission: 08/05/18 15:34 Attending physician: Bri Stern DO Primary care physician: Atilio Arredondo MD Consults: 08/04/18 18:33 Cardiology Consult Routine Comment: Consulting Provider: Roshan Mei Consulting Physician: Roshan Mei Reason for Consult: chest pain in a patient with CAD 08/04/18 22:24 Case Management Referral Routine Comment: DISCHARGE PLANNING WITH ASSISTANCE AT HOME Physician Instructions: Reason For Exam: 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 Referral 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 Comment: Physician Instructions: Reason For Exam: EVALUATION Transition In Care/Readmission Reduction Routine Comment: Physician Instructions: Reason For Exam: EVALUATION Hospital Course - Lab Results Lab Results: Most Recent Lab Values WBC 6.1 10^3/uL (4.5-11.0) 08/08/18 12:00 RBC 3.96 10^6/uL (3.5-6.1) 08/08/18 12:00 Hgb 11.5 g/dL (12.0-16.0) L 08/08/18 12:00 Hct 35.2 % (36.0-48.0) L 08/08/18 12:00 MCV 88.9 fl (80.0-105.0) 08/08/18 12:00 MCH 29.0 pg (25.0-35.0) 08/08/18 12:00 MCHC 32.7 g/dl (31.0-37.0) 08/08/18 12:00 RDW 13.9 % (11.5-14.5) 08/08/18 12:00 Plt Count 117 10^3/uL (120.0-450.0) L 08/08/18 12:00 MPV 10.3 fl (7.0-11.0) 08/08/18 12:00 Neut % (Auto) 60.3 % (50.0-68.0) 08/08/18 12:00 Lymph % (Auto) 29.0 % (22.0-35.0) 08/08/18 12:00 [place] % (Auto) 4.5 % (1.0-6.0) 08/08/18 12:00 Eos % (Auto) 5.9 % (1.5-5.0) H 08/08/18 12:00 Baso % (Auto) 0.3 % (0.0-3.0) 08/08/18 12:00 Lymph # (Auto) 1.8 (1.2-3.4) 08/08/18 12:00 [place] # (Auto) 0.3 (0.1-0.6) 08/08/18 12:00 Eos # (Auto) 0.4 (0.0-0.7) 08/08/18 12:00 Baso # (Auto) 0.02 K/mm3 (0.0-2.0) 08/08/18 12:00 Absolute Neuts (auto) 3.65 (1.4-6.5) 08/08/18 12:00 PT 11.0 SECONDS (9.4-12.5) 08/04/18 16:10 INR 0.99 08/04/18 16:10 APTT 31.5 Seconds (26.9-38.3) 08/04/18 16:10 Sodium 142 mmol/L (132-148) 08/08/18 12:00 Potassium 3.8 mmol/L (3.6-5.0) 08/08/18 12:00 Chloride 112 mmol/L (98-107) H 08/08/18 12:00 Carbon Dioxide 23 mmol/L (21-33) 08/08/18 12:00 Anion Gap 11 (10-20) 08/08/18 12:00 BUN 25 mg/dL (7-21) H 08/08/18 12:00 Creatinine 1.3 mg/dl (0.7-1.2) H 08/08/18 12:00 Est GFR ( Amer) 48 08/08/18 12:00 Est GFR (Non-Af Amer) 39 08/08/18 12:00 Random Glucose 113 mg/dL (70-110) H 08/08/18 12:00 Hemoglobin A1c 6.4 % (4.2-6.5) 08/05/18 07:00 Calcium 8.8 mg/dL (8.4-10.5) 08/08/18 12:00 Magnesium 2.4 mg/dL (1.7-2.2) H 08/05/18 06:00 Total Bilirubin 0.5 mg/dL (0.2-1.3) 08/08/18 12:00 AST 37 U/L (14-36) H D 08/08/18 12:00 ALT 15 U/L (7-56) 08/08/18 12:00 Alkaline Phosphatase 66 U/L (38-126) 08/08/18 12:00 Troponin I < 0.01 ng/mL 08/05/18 06:00 Total Protein 7.0 g/dL (5.8-8.3) 08/08/18 12:00 Albumin 3.8 g/dL (3.0-4.8) 08/08/18 12:00 Globulin 3.2 gm/dL 08/08/18 12:00 Albumin/Globulin Ratio 1.2 (1.1-1.8) 08/08/18 12:00 Triglycerides 126 mg/dL (35-160) 08/05/18 06:00 Cholesterol 137 mg/dL (130-200) 08/05/18 06:00 LDL Cholesterol Direct 67 mg/dL (0-129) 08/05/18 06:00 HDL Cholesterol 40 mg/dL (29-60) 08/05/18 06:00 Free T4 1.08 ng/dL (0.78-2.19) 08/05/18 08:41 TSH 3rd Generation 4.74 mIU/mL (0.46-4.68) H 08/05/18 06:00 Attending/Attestation - Attestation I have personally seen and examined this patient.: Yes I have fully participated in the care of the patient.: Yes I have reviewed all pertinent clinical information, including history, physical exam and plan: Yes Notes (Text): Please note this DC summary is for 08/08/18 Patient seen and examined by me with resident at approximately 9:40AM and prior to discharge on 08/08/18. Case including discharge plan discussed with resident. Agree with above with following additions/corrections. Patient is an 78-year-old female with past medical history significant for coronary artery disease status post 9 stents, hypertension, hypercholesterolemia, and acid reflux that presented to the emergency room with chest pressure and pain. Please see H&P for full details. Patient was admitted with chest pain/pressure, headache, dizziness, GERD, hypertension, and hypercholesterolemia. Patient has a history of coronary artery disease status post 9 stent placement. Patient was seen by a splitting machine feeder. Troponins were within normal limits. Patient was treated with aspirin, Plavix, Lipitor, Cozaar, and metoprolol. Hemoglobin A1c was 6.4. TSH was 4.74. Free T4 was 1.08. Patient to cardiac catheterization which per splitting machine feeder showed patent stents in the LAD, RCA, circumflex artery, and diagonal vessel; 50% stenosis in the LAD after the stent; left ventricular function normal with an EF of 70%. It was determined that the chest pain was not of cardiac origin and likely was secondary to acid reflux. Plavix was stopped per splitting machine feeder Dr. Mei. Patient also had headache and dizziness which resolved. Resolved. Head CT per radiologist showed no acute intracranial abnormalities, no significant findings to account for her clinical presentation. Carotid dopplers per radiologist showed bilateral 20-39% proximal ICA stenosis, antegrade flow in both vertebral arteries. Patient was initially placed on Protonix for GERD and that was switched to Pepcid. She was continued on metoprolol and Cozaar for hypertension. She was continued on Lipitor for hypercholesterolemia. Patient was feeling much better and went home. Patient was cleared for discharge by splitting machine feeder Dr. Mei. Patient was discharged home. On day of discharge, patient was feeling better. Patient denied any pain at the right groin area. Headaches and dizziness resolved. Shortness of breath resolve d. No chest pain or palpitations. No chest pressure. No fevers or chills. No dysuria. No nausea, vomiting, or abdominal pain. No diarrhea or constipation. Physical exam: General: Awake and alert, sitting up in bed in no acute distress. HEENT: Normocephalic, atraumatic, Extraocular muscles intact, pupils equal and reactive, no scleral icterus. Resolved left conjunctival injection. Oropharynx is pink and moist. Neck is supple. Cardiovascular: Normal rhythm. Normal S1 and S2. Positive systolic murmur. No rubs or gallops appreciated. Pulmonary: Normal respiratory effort. No rhonchi, rales, or wheezing appreciated. Gastrointestinal: Soft. Nontender. Nondistended. Positive bowel sounds all 4 quadrants. No guarding. Musculoskeletal: Moves all extremities. No calf tenderness. No edema appreci ated. Central nervous system: AAO x 3, CN 2-12 grossly intact. 5/5 muscle strength all extremities. Dermatologic: Skin warm and dry. Please see chart for full details. Follow up instructions: Patient to follow-up with primary care doctor within 3-5 days. Patient to have repeat blood work with primary care doctor. Patient to follow-up with splitting machine feeder Dr. Mei within 1 week. Stop home Plavix and resume all other home medications. All instructions explained to the patient in detail. Patient both understands and agrees to all instructions. Written instructions also given. Time spent in discharging the patient including chart review, medication reconciliation, discussion with the patient, certified medical assistant, consultants, and nursing staff was approximately 45 minutes.
--- NOTE | 2018-08-08 14:14 | PN ---
DATE: 08/08/2018 CARDIOLOGY FOLLOWUP SUBJECTIVE: The patient is chest pain free. Her breathing is fine. PHYSICAL EXAMINATION: VITAL SIGNS: Blood pressure 163/65, heart rates in the 60s. NECK: Negative JVD. LUNGS: Without rales. HEART: S1 and S2. EXTREMITIES: Without edema. LABORATORY DATA: BUN and creatinine are 25 and 1.3, hemoglobin is 11.5. IMPRESSION: 1. Stable post cardiac catheterization. 2. Patent stents x3. 3. Resolution of chest pain. 4. Hypercholesterolemia. 5. Hypertension. ASSESSMENT AND PLAN: Given these findings, the patient will DC the Plavix. We will continue the aspirin as well as a cardiac risk reduction program. She needs to decrease her salt intake to help her blood pressure. Followup instructions have been given to the patient in detail. Roshan Mei MD
== END 2018-08-08 16:20 | disposition home or self-care (01) | DRG 287 ==
LOC: ED 15:28 → ERH 16:46 → 2RSO 18:39 → OBSVTOIN 08-05 15:34 → 2RSO 08-07 15:30
PROVIDERS: ADMIT Hospitalist; ATTEND Hospitalist
PROC: 4A023N7 Measurement of Cardiac Sampling and Pressure, Left Heart, Percutaneous Approach (ICD-10-PCS; principal; 2018-08-07)
PROC: B2111ZZ Fluoroscopy of Multiple Coronary Arteries using Low Osmolar Contrast (ICD-10-PCS; 2018-08-07)
PROC: B2151ZZ Fluoroscopy of Left Heart using Low Osmolar Contrast (ICD-10-PCS; 2018-08-07)
DX: I25.119 Atherosclerotic heart disease of native coronary artery with unspecified angina pectoris (principal); I65.23 Occlusion and stenosis of bilateral carotid arteries; E11.65 Type 2 diabetes mellitus with hyperglycemia; E78.00 Pure hypercholesterolemia, unspecified; E78.5 Hyperlipidemia, unspecified; I10 Essential (primary) hypertension; K21.9 Gastro-esophageal reflux disease without esophagitis; Z79.02 Long term (current) use of antithrombotics/antiplatelets; Z79.82 Long term (current) use of aspirin; Z82.49 Family history of ischemic heart disease and other diseases of the circulatory system; Z85.3 Personal history of malignant neoplasm of breast; Z90.13 Acquired absence of bilateral breasts and nipples; Z95.5 Presence of coronary angioplasty implant and graft; R51 Headache; R42 Dizziness and giddiness